=== PATIENT | female | born 1965 | race Caucasian/White ===

== ENCOUNTER 2022-03-22 09:08 | Emergency (ER) | payer OTHER, SELFPAY ==
--- NOTE | ~2022-03-22 | XR_ITS ---
EXAMINATION: XR chest 1V portable INDICATION: Left-sided chest pain TECHNIQUE: Portable AP chest at 0943 hours COMPARISON: 06/26/2019 FINDINGS: The lungs are hyperinflated but free of acute opacities. Calcified pulmonary nodules and ca lcified right hilar lymph nodes are consistent with old granulomatous disease. No pleural effusion or pneumothorax. The cardiomediastinal silhouette is normal. There are partially imaged surgical change s in the cervical and lumbar spine. IMPRESSION: 1. No acute cardiopulmonary abnormality. Reviewed, dictated and finalized at location A.
--- NOTE | ~2022-03-22 | CT_ITS ---
EXAMINATION: CTA chest PE protocol DATE: 03/22/2022 10:52 INDICATION: Shortness of breath and chest pain TECHNIQUE: Computed tomography angiography (CTA) of the chest was performed with 100 mL Omnipaque-350 intravenous contrast timed to evaluate the pulmonary arteries. Coronal maximum intensity projection 3D-reconstructions were created by the technologist. The dose-length product (DLP) was 156.49 mGy-cm. Automated exposure control and iterative reconstruction technique were employed. COMPARISON: None. FINDINGS: The pulmonary arteries are well-opacified. No pulmonary embolism is identified. There is sc arring of the lung apices. There are small group of nodules in the right middle lobe with an appearan ce consistent with infection/inflammation. There is also mild atelectasis/scarring of the left lower lobe. No pleural effusion or pneumothorax. No pathologically enlarged thoracic lymph nodes are identi fied. The heart size is normal. Punctate calcifications in an otherwise normal spleen likely represen t healed granulomatous disease. There are partially imaged changes of anterior fusion in the lower ce rvical spine. IMPRESSION: 1. No pulmonary embolus identified. 2. Small group of nodules in the right middle lobe, likely infectious or inflammatory. Reviewed, dictated and finalized at location A. IMPRESSION: 1. No pulmonary embolus identified. 2. Small group of nodules in the right middle lobe, likely infectious or inflam matory.
--- NOTE | 2022-03-22 09:20 | ECG_ITS ---
Measurements Intervals [place] Rate: 81 P: 83 [place]: 161 QRS: 72 QRSD: 74 T: 60 QT: 404 QTc: 470 Interpretive Statements SINUS RHYTHM RIGHT ATRIAL ENLARGEMENT LEFT ATRIAL ENLARGEMENT BORDERLINE ST-T WAVE ABNORMALITY- DIFFUSE LEADS BASELINE ARTIFACT- I, II, III, AVR AVL, AVF, V1-V2 BORDERLINE ECG COMPARED TO ECG 06/26/2019 14:29:44 NO SIGNIFICANT CHANGES Electronically Signed On 03-22-2022 11:08:39 CDT by Low Mcfarland D.O.
--- NOTE | 2022-03-22 09:20 | ED.GENADULT ---
HPI - General Adult General Chief complaint: Chest Pain Stated complaint: recent pna, SOB, CP Time Seen by Provider: 03/22/22 09:11 Source: RN notes reviewed History of Present Illness HPI narrative: Patient presents emergency room from home for chest pain. Patient states that symptoms began 2 days ago. The pain is located across bilateral anterior chest and is described as sharp and stabbing. Patient states the pain is worse with deep inspiration she states that she was recently admitted to the [facility] for pneumonia and was released approximately week ago states she is no longer antibiotics. She denies any fevers or chills shortness of breath abdominal pain nausea vomiting or any other symptoms. Related Data Home Medications Medication Instructions Recorded Confirmed alendronate 70 mg tablet mg PO 06/26/19 amlodipine 5 mg tablet 06/26/19 atorvastatin 20 mg tablet 06/26/19 cyclobenzaprine 10 mg tablet mg 06/26/19 famotidine 40 mg tablet 06/26/19 hydrocortisone 1 % topical cream 06/26/19 Allergies Allergy/AdvReac Type Severity Reaction Status Date / Time No Known Allergies Allergy Verified 03/22/22 09:28 Review of Systems Review of Systems: Gen.: Denies fevers or chills ENT: Denies congestion Respiratory: Denies shortness of breath or cough CV: See HPI GI: Denies abdominal pain nausea, emesis or diarrhea Musculoskeletal: Denies back pain or muscle pain Neuro: Denies numbness, tingling, weakness or focal weakness Skin: Denies rash Except as documented, all other systems reviewed and negative [facility] Past Medical History Medical History (Updated 03/22/22 @ 13:21 by Shady Mendoza DO) COPD (chronic obstructive pulmonary disease) Hepatitis C Liver failure Surgical History Surgical History History of hysterectomy History of orthopedic surgery removal of 3 lt ribs S/P insertion of iliac artery stent bilateral iliac stents placed Social History Social History Smoking packs per day: 1 Smoking cigarettes per day: 20.0 Smoking status: Current every day smoker Substance use type: marijuana Gender identity (if verbalized by the patient): Female Exam Narrative: APPEARANCE: No acute distress, nontoxic, resting in bed EYES: EOMI HEENT: Normocephalic, atraumatic, OMM RESPIRATORY: No respiratory distress Clear to auscultation bilaterally with no rhonchi wheezing or rales. CARDIOVASCULAR: Regular rate and rhythm without murmurs rubs or gallops. Chest: Tender bilateral anterior chest wall pain increased with deep inspiration ABDOMINAL: Soft, nontender, nondistended, no rebound or guarding MUSCULOSKELETAl: Moves all extremities. No clubbing, cyanosis or edema. NEURO: Awake and alert. Following commands, speech normal, no focal deficits SKIN:: Warm, dry. No rashes lesions or abrasions PSYCHIATRIC: Normal affect/mood, Course Course Emergency Course: Reviewed patient's CT of the chest the patient was recently diagnosed with pneumonia recently finished antibiotics and feel these nodules are likely postinfectious small patient follow-up with her PCP Patient states pain is improved with medication Discussed with patient results of workup and diagnosis. Discussed need for follow-up with primary care, proper use of medication, and reasons to return to the emergency department. Patient understands and agrees to current treatment plan Vital Signs Vital signs: Vital Signs Temperature 97.8 F 03/22/22 09:22 Pulse Rate 87 03/22/22 09:22 Respiratory Rate 19 03/22/22 09:22 Blood Pressure 156/102 H 03/22/22 09:22 Pulse Oximetry 100 03/22/22 09:22 Oxygen Delivery Room Air 03/22/22 09:22 Temperature 97.8 F 03/22/22 09:22 Pulse Rate 62 03/22/22 13:05 Respiratory Rate 12 03/22/22 13:05 Blood Pressure 147/81 H 03/22/22 13:05 Pulse Oximetry 98
[2022-03-22 09:22] VITALS: BP 156/102; PULSE 87; RESP 19; TEMP 36.6; O2SAT 100
[2022-03-22 09:27] VITALS: PULSE 73
[2022-03-22 09:40] LABS: Basophils Absolute Auto 0.1 K/mm3 (0.0-0.1); Basophils Percent Auto 1.2 % (0.2-1.2); Eosinophils Absolute Auto 0.3 K/mm3 (0-0.3); Eosinophils Percent Auto 2.7 % (0-4.4); Hematocrit 47.2 % (37.0-47.0); Hemoglobin 15.8 g/dL (12.0-15.0); Immature Granulocyte Absolute 0.04 K/mm3 (0.00-0.031); Immature Granulocyte Percent A 0.3 % (0-0.5); Lymphocytes Absolute Auto 2.24 K/mm3 (0.9-3.2); Lymphocytes Percent Auto 19.4 % (18.3-44.2); Mean Corpuscular HGB Conc 33.5 g/dl (32-36); Mean Corpuscular Volume 92.5 fl (80-100); Monocytes Absolute Auto 0.8 K/mm3 (0.1-0.6); Monocytes Percent Auto 6.9 % (2.6-8.5); Neutrophils Percent Auto 69.5 % (45.5-73.1); Platelet Count Result 342 k/mm3 (150-375); Red Cell Distribution Width 12.9 % (11.5-14.5); White Blood Count 11.5 K/mm3 (4.5-10.0)
[2022-03-22 10:00] LABS: Alanine Aminotransferase 23 U/L (6-35); Albumin Level 4.8 g/dL (3.5-5.1); Alkaline Phosphatase 100 U/L (38-126); Anion Gap 16 mmol/L (8-16); Aspartate Amino Transferase 33 U/L (14-36); Bilirubin,Total 0.7 mg/dL (0.2-1.3); Blood Urea Nitrogen 12 mg/dL (7-17); Calcium 9.5 mg/dL (8.4-10.2); Carbon Dioxide 23 mmol/L (22-30); Chloride 102 mmol/L (98-107); Estimated CRCL calculation 47 ml/min; Estimated Glomerular Filt Rate > 60; Glucose 93 mg/dL (65-110); Lipase 185 U/L (23-300); Potassium 3.7 mmol/L (3.4-5.0); Sodium 141 mmol/L (137-145)
[2022-03-22 10:10] LABS: Troponin I < 0.012 ng/mL (0.000-0.034)
[2022-03-22 10:20] VITALS: BP 161/101; PULSE 81; RESP 17; O2SAT 97
[2022-03-22 10:25] LABS: INR 1.1; Prothrombin Time 13.7 Seconds (11.1-14.7)
[2022-03-22 10:26] LABS: Partial Thromboplastin Time 23.9 SECONDS (22.3-36.8)
[2022-03-22 10:35] LABS: D Dimer 0.63 ug/mL (<0.48)
--- NOTE | 2022-03-22 10:48 | PC.NURSE ---
Pt to CT scan via stretcher at this time.
[2022-03-22 11:38] VITALS: BP 146/89; PULSE 73; RESP 19; O2SAT 98
[2022-03-22 12:32] LABS: Troponin I < 0.012 ng/mL (0.000-0.034)
[2022-03-22] MEDS: KETOROLAC 30 MG/ML VIAL (*BKC) IV PUSH (13:04)
[2022-03-22 13:05] VITALS: BP 147/81; PULSE 62; RESP 12; O2SAT 98
[2022-03-22 13:37] VITALS: BP 124/78; PULSE 92; RESP 16
== END 2022-03-22 13:38 | disposition home or self-care (01) ==
PROVIDERS: Emergency Provider Emergency Medicine
DX: R07.89 Other chest pain (principal); J44.9 Chronic obstructive pulmonary disease, unspecified; F17.210 Nicotine dependence, cigarettes, uncomplicated; F12.90 Cannabis use, unspecified, uncomplicated; Z86.19 Personal history of other infectious and parasitic diseases; Z95.820 Peripheral vascular angioplasty status with implants and grafts
CPT/HCPCS: 36415; 71045; 71275; 80053; 83690; 84484; 85025; 85380; 85610; 85730; 93005; 96374; 99284; J1885; Q9967

== ENCOUNTER 2025-04-08 16:15 | Inpatient (IN) | payer MEDICARE, SELFPAY ==
[2025-04-08] VITALS (9 sets, daily range): BP systolic 113–166; BP diastolic 80–94; PULSE 66–109; RESP 12–22; TEMP 36.4–37.1; O2SAT 97–100; BMI 16.9
--- NOTE | ~2025-04-08 | CT_ITS ---
EXAMINATION: CTA chest PE abdomen pel, 04/08/2025 17:25 CDT HISTORY: SOB, active cancer, tachy COMPARISON: No comparisons available. TECHNIQUE: CTA scan with 3D Reconstructions of the chest, CT of the abdomen and pelvis was performed with contrast Isovue 300, 92cc injected IV. One or more of the following dose reduction techniques were used: automated exposure control, adjustment of the mA and/or kV according to patient size, use of iterative reconstruction technique. Unless otherwise stated, incidental findings do not require dedicated follow up imaging FINDINGS: CT chest: No significant coronary calcification is present ([id number]) LUNGS: The contrast bolus is adequate, there is no pulmonary embolism identified. Moderate to severe emphysematous changes. No areas of bullous formation. No tracheomalacia. No bronchiectasis. Bilateral bronchial wall thickening. There are no areas of mucous plugging. Scattered bilateral calcified granulomas. Left lower lobe there is a lung nodule measuring 6 x 6 mm. Apical scarring is noted bilaterally. There are scattered micronodules in a tree-in-bud distribution most marked involving the lingula and the right middle lobe with associated bronchial wall thickening and minimal scattered foci of groundglass attenuation. Scattered calcified granulomas. Punctate calcified splenic granulomas. HEART AND PERICARDIUM: Within normal limits. AORTA: Moderate atherosclerotic changes aorta without aneurysm. MEDIASTINUM: Unremarkable. THYROID: The thyroid is unremarkable. CT abdomen: LIVER: Portal vein patent. No intrahepatic biliary duct dilatation. SPLEEN: Unremarkable, no splenomegaly. KIDNEYS: Right Kidney: The right kidney is enlarged. Left Kidney: The left kidney is atrophic. ADRENAL GLANDS: Unremarkable. PANCREAS: Mild pancreatic atrophy. GALLBLADDER/BILIARY: Unremarkable. No biliary dilatation. STOMACH AND ESOPHAGUS: Nonspecific thickening of the esophagus may represent esophagitis. The stomach appears decompressed. BOWEL/MESENTERY: Moderate fecal content, no colitis or diverticulitis. Appendix normal. Mesentery normal. No thickening or dilated loops of small bowel. RETROPERITONEUM: Unremarkable AORTA/VASCULATURE: Normal caliber aorta. FREE FLUID OR FREE AIR: No free fluid.. CT pelvis: SOLID ORGANS/REPRODUCTIVE: Post hysterectomy. No adnexal mass. BLADDER: Bladder distended. LYMPHADENOPATHY: No lymphadenopathy. OSSEOUS STRUCTURES: No sclerotic or lytic lesions. No acute rib fractures are identified. Postsurgical changes noted in the lumbar spine. OVERLYING SOFT TISSUES: Unremarkable. IMPRESSION: 1. Negative for pulmonary embolism. Probable bilateral bronchopneumonia superimposed on chronic lung disease. There are micronodules detailed above which are probably infectious, underlying neoplasm is not excluded and follow-up is warranted to ensure stability or resolution. 2. No acute intra-abdominal process. Incidental findings above Reviewed, dictated and finalized at location P. IMPRESSION: 1. Negative for pulmonary embolism. Probable bilateral bronchopneumonia superim posed on chronic lung disease. There are micronodules detailed above which are probably infectious, underlying neoplasm is not excluded and follow-up is warra nted to ensure stability or resolution. 2. No acute intra-abdominal process. Incidental findings above
--- NOTE | ~2025-04-08 | XR_ITS ---
XR chest 1V portable INDICATION:SOB NAUSEA DIARRHEA WEAKNESS RECENT RECENT CA . REFERENCE: None FINDINGS: A single AP of the chest demonstrates normal heart size. The lungs are clear. There is no evidence of pneumothorax or pleural effusion. IMPRESSION: No acute pulmonary findings. Reviewed, dictated and finalized at location S.
--- NOTE | 2025-04-08 16:16 | ECG_ITS ---
Test Date: 2025-04-08 16:22:48 Measurements Intervals [place] Rate: 111 P: 85 [place]: 154 QRS: 59 QRSD: 70 T: 76 QT: 347 QTc: 473 Interpretive Statements SINUS TACHYCARDIA WITH OCCASIONAL SUPRAVENTRICULAR PREMATURE COMPLEXES RIGHT ATRIAL ENLARGEMENT LEFT ATRIAL ENLARGEMENT CANNOT R/O SEPTAL INFARCT, AGE INDETERMINATE BORDERLINE ST ABNORMALITY- ANTEROLAT/INF LEADS PEAKED T WAVES- CONSIDER HYPERKALEMIA BASELINE ARTIFACT- I, II, AVR, AVL, AVF, V1-V2 ABNORMAL ECG No previous ECG available for comparison Electronically Signed On 04-08-2025 18:04:46 CDT by Low Mcfarland D.O.
--- NOTE | 2025-04-08 16:49 | ED.SOB ---
HPI - SOB/Dyspnea General Chief Complaint: Shortness of Breath/Dyspnea Stated Complaint: SOB, vomiting, black stool yesterday Time Seen by Provider: 04/08/25 16:27 History of Present Illness HPI Narrative: 59-year-old female with history of stage I lung cancer completed radiation therapy over a month ago. She also has a history of coronary disease with 2 stents in her heart placed 7 years ago. Presents to the emergency department today with nausea vomiting black tarry stools and shortness of breath for the last day and half to 2 days. No recent medication changes or healthcare changes. Had a colonoscopy previously that was unremarkable. No history of EGD or GI bleeding. She takes an 81 mg aspirin daily but no other anticoagulants or blood thinners. Denies any traumatic injuries. She states she feels very short of breath and vomited yesterday some clear phlegm. Today she had 1 large bowel movement that she describes as very dark and tarry with sticky appearance. [place] short of breath for last 2 days but denies any chest pain or chest pressure. No nausea, vomiting now. No headache or vision changes. No abdominal pain. Has only undergone radiation therapy and did not have any chemotherapy for her cancer. Has a follow-up appointment in 3 months to assess for remission status. Related Data Home Medications ?Medication ?Instructions ?Recorded ?Confirmed ?Last Taken ?Type atorvastatin 20 mg tablet 20 mg PO HS 06/26/19 04/08/25 04/07/25 History losartan 100 mg tablet 100 mg PO DAILY 04/08/25 04/08/25 04/08/25 History Allergies Allergy/AdvReac Type Severity Reaction Status Date / Time No Known Allergies Allergy Verified 04/08/25 22:21 Review of Systems Review of Systems: As reviewed above in HPI [facility] Past Medical History Medical History (Updated 04/08/25 @ 22:42 by Kirill Tan MD) Squamous cell carcinoma of lung, stage I /radiation completed Chronic GERD HTN (hypertension) with goal to be determined Hyperlipidemia Osteoporosis Liver failure Hepatitis C COPD (chronic obstructive pulmonary disease) Surgical History Surgical History (Updated 04/08/25 @ 20:04 by Lucila Dunbar APRN) H/O neck surgery History of back surgery History of orthopedic surgery removal of 3 lt ribs History of hysterectomy S/P insertion of iliac artery stent bilateral iliac stents placed Social History Social History (Updated 04/08/25 @ 20:50 by Lucila Dunbar APRN) Social History: She continues to work part work at a local [employer]. She has no children and lives with her mother. She stated she is down to half a pack a cigarettes a day. She does not have a power of associate attorney for healthcare. Code status: Full code Smoking packs per day: 0.5 Smoking cigarettes per day: 10.0 Years smoked: 45 Smoking pack-years: 22.50 Smoking status: Current every day smoker Tobacco type: cigarettes Substance use type: marijuana Gender identity (if verbalized by the patient): Female Exam Narrative: GENERAL: Thin and frail but not any acute distress. HEAD: [Normocephalic, atraumatic.] EYES: [PERRLA and EOMI.] ENT: Nares clear, no rhinorrhea or epistaxis. Mucous membranes very dry. NECK: Supple. CHEST: Mildly dyspneic but clear to auscultation without any wheezing. No retractions. HEART: [Regular rate and rhythm]. No murmur heard. [Normal peripheral pulses.] ABDOMEN: Soft and nondistended, minimally tender in the epigastrium., no rigidity or peritonitis EXTREMITIES: Normal range of motion. [No edema.] SKIN: Warm, dry, no rash. NEURO: [No focal deficits]. Alert and oriented [x3.] PSYCH: [Normal mood and affect.] Course Vital Signs Vital signs: Vital Signs Temperature 37.1 C 04/08/25 16:20 Pulse Rate 109 H 04/08/25 16:20 Respiratory Rate 20 04/08/25 16:20 Blood Pressure 113/82 04/08/25 16:20 Pulse Oximetry 99 04/08/25 16:20 Oxygen Delivery Room Air 04/08/25 16:20 Temperature 36.6 C 04/08/25 22:19 Pulse Rate 80 04/08/25 22:19 Respiratory Rate 22 H 04/08/25 22:19 Blood Pressure 163/80 H 04/08/25 22:19 Pulse Oximetry 100 04/08/25 22:19 Oxygen Delivery Room Air 04/08/25 21:40 Fraction of Inspired Oxygen 21 04/08/25 21:40 MDM - SOB/Dyspnea MDM Narrative Medical decision making narrative: 59-year-old female with history of stage I lung cancer completed radiation therapy over a month ago. She also has a history of coronary disease with 2 stents in her heart placed 7 years ago. Presents to the emergency department today with nausea vomiting black tarry stools and shortness of breath for the last day and half to 2 days. No recent medication changes or healthcare changes. Had a colonoscopy previously that was unremarkable. No history of EGD or GI bleeding. She takes an 81 mg aspirin daily but no other anticoagulants or blood thinners. Denies any traumatic injuries. She states she feels very short of breath and vomited yesterday some clear phlegm. Today she had 1 large bowel movement that she describes as very dark and tarry with sticky appearance. [place] short of breath for last 2 days but denies any chest pain or chest pressure. No nausea, vomiting now. No headache or vision changes. No abdominal pain. Has only undergone radiation therapy and did not have any chemotherapy for her cancer. Has a follow-up appointment in 3 months to assess for remission status. Patient has tachycardia and some tachypnea. No fever hypoxemia. Normal blood pressure. She is thin and frail and does have some mild tenderness on the epigastrium. Given her symptoms concern for potential GI bleeding with dark tarry stools epigastric discomfort with palpation and shortness of breath could be from GI bleeding or anemia. Other differential includes thromboembolic disease such as PE given her cancer history, recurrence for cancer worsening cancer burden. Pneumonia or infectious process also possible. Broad workup ordered this time including CT angiography of the chest with PE protocol with abdomen pelvis addition. Laboratory studies obtained as well as chest x-ray EKG. EKG obtained shows global ST segment depressions without any contiguous ST segment elevations likely strain pattern but ordering cardiac markers including troponin and BNP as well. Patient given a L of fluid given that she appears dehydrated. Repeat EKG obtained after fluid bolus and resuscitation showed resolution of the diffuse ST segment depressions likely demand ischemia type 2 LA although she does have an elevated troponin here. Repeat EKG and repeat troponin down trending and improved without any further ST segment changes. Likely combination of dehydration and intravascular volume depletion as she has hemoconcentration on her labs. Evidence of bronchopneumonia the CT angiography with no pulmonary embolism. Started on antibiotics including vancomycin and cefepime given that she has a prolonged QTC will avoid agents such as azithromycin for atypical coverage. Given a dose of magnesium for the prolonged QTC interval as well. Patient did not have any further nausea vomiting or bowel movements here, concern presently for pneumonia with elevated troponin from dehydration and demand ischemia and some and has a history of coronary disease. Will admit to the hospital for further evaluation and treatment on inpatient basis. Will hold off on empiric anticoagulation at this time as do not suspect ACS and discussed this with the hospitalist regarding initiation or holding off on anticoagulation as well in the setting of potential historical features concerning for GI bleed. Will defer at this time and patient admitted to the hospital to an IMU bed. Medical Records Attestation: I reviewed the patient's medical records. Lab Data Attestation: I reviewed the patient's lab results. 04/08/25 16:41 04/08/25 16:41 Labs: Lab Results 04/08/25 04/08/25 04/08/25 Range/Units 16:41 16:41 16:41 WBC 11.1 H (4.5-10.0) K/mm3 RBC 5.62 H (4.2-5.4) M/mm3 Hgb 17.3 H (12.0-15.0) g/dL Hct 50.7 H (37.0-47.0) % MCV 90.2 (80-100) fl MCH 30.8 (26-34) pg MCHC 34.1 (32-36) g/dl RDW 13.0 (11.5-14.5) % Plt Count 264 (150-375) k/mm3 MPV 10.3 (7.4-10.4) fl Immature Gran % (Auto) 0.4 (0-0.5) % Neut % (Auto) 68.8 (45.5-73.1) % Lymph % (Auto) 21.2 (18.3-44.2) % [place] % (Auto) 8.7 H (2.6-8.5) % Eos % (Auto) 0.4 (0-4.4) % Baso % (Auto) 0.5 (0.2-1.2) % Lymph # (Auto) 2.35 (0.9-3.2) K/mm3 [place] # (Auto) 1.0 H (0.1-0.6) K/mm3 Eos # (Auto) 0.0 (0-0.3) K/mm3 Baso # (Auto) 0.1 (0.0-0.1) K/mm3 Abs Immat Gran (auto) 0.04 H (0.00-0.031) K/mm3 Absolute Neuts (auto) 7.6 H (1.3-6.7) K/mm3 Absolute Nucleated RBC 0.000 (0.0-0.012) K/mm3 Nucleated RBC % 0.0 (0.0-0.2) % PT 14.2 (11.1-14.7) Seconds INR 1.1 APTT 22.7 (22.3-36.8) Seconds Sodium 136 L (137-145) mmol/L Potassium 4.2 (3.4-5.0) mmol/L Chloride 100 (98-107) mmol/L Carbon Dioxide 21 L (22-30) mmol/L Anion Gap 15 H (4-12) mmol/L BUN 17 (7-17) mg/dL Creatinine 1.35 H (0.7-1.0) mg/dL Estim Creat Clear Calc Not Reportable Estimated GFR 40 L (59 - ) Glucose 102 (65-110) mg/dL Lactic Acid 1.7 (0.7-2.0) mmol/L Uric Acid Cancelled 4.4 Calcium 10.4 H (8.4-10.2) mg/dL Total Bilirubin 1.0 (0.2-1.3) mg/dL AST 32 (14-36) U/L ALT 20 (6-35) U/L Alkaline Phosphatase 126 (38-126) U/L Lactate Dehydrogenase Cancelled 218 Troponin I 0.753 H* (0.000-0.034) ng/mL NT-Pro-B Natriuret Pep 4910 H (19.9-100) pg/mL Total Protein (6.3-8.2) g/dL Albumin (3.5-5.1) g/dL Lipase (23-300) U/L 04/08/ Range/Units 16:41 WBC (4.5-10.0) K/mm3 RBC (4.2-5.4) M/mm3 Hgb (12.0-15.0) g/dL Hct (37.0-47.0) % MCV (80-100) fl MCH (26-34) pg MCHC (32-36) g/dl RDW (11.5-14.5) % Plt Count (150-375) k/mm3 MPV (7.4-10.4) fl Immature Gran % (Auto) (0-0.5) % Neut % (Auto) (45.5-73.1) % Lymph % (Auto) (18.3-44.2) % [place] % (Auto) (2.6-8.5) % Eos % (Auto) (0-4.4) % Baso % (Auto) (0.2-1.2) % Lymph # (Auto) (0.9-3.2) K/mm3 [place] # (Auto) (0.1-0.6) K/mm3 Eos # (Auto) (0-0.3) K/mm3 Baso # (Auto) (0.0-0.1) K/mm3 Abs Immat Gran (auto) (0.00-0.031) K/mm3 Absolute Neuts (auto) (1.3-6.7) K/mm3 Absolute Nucleated RBC (0.0-0.012) K/mm3 Nucleated RBC % (0.0-0.2) % PT (11.1-14.7) Seconds INR APTT (22.3-36.8) Seconds Sodium (137-145) mmol/L Potassium (3.4-5.0) mmol/L Chloride (98-107) mmol/L Carbon Dioxide (22-30) mmol/L Anion Gap (4-12) mmol/L BUN (7-17) mg/dL Creatinine (0.7-1.0) mg/dL Estim Creat Clear Calc Estimated GFR (59 - ) Glucose (65-110) mg/dL Lactic Acid (0.7-2.0) mmol/L Uric Acid Calcium (8.4-10.2) mg/dL Total Bilirubin (0.2-1.3) mg/dL AST (14-36) U/L ALT (6-35) U/L Alkaline Phosphatase (38-126) U/L Lactate Dehydrogenase Troponin I (0.000-0.034) ng/mL NT-Pro-B Natriuret Pep Cancelled (19.9-100) pg/mL Total Protein 8.7 H (6.3-8.2) g/dL Albumin 5.0 (3.5-5.1) g/dL Lipase 115 (23-300) U/L Imaging Data Attestation: I personally reviewed and interpreted this imaging study as follows: My impression: Impressions Chest X-Ray 04/08/25 16:55 IMPRESSION: No acute pulmonary findings. Chest/Abdomen/Pelvis CTA 04/08/25 17:48 IMPRESSION: 1. Negative for pulmonary embolism. Probable bilateral bronchopneumonia superimposed on chronic lung disease. There are micronodules detailed above which are probably infectious, underlying neoplasm is not excluded and follow-up is warranted to ensure stability or resolution. 2. No acute intra-abdominal process. Incidental findings above Critical Care Time Critical Care Time Critical Care Time: Yes Total Critical Care Time: 75 Discharge Plan Discharge Clinical Impression: Bilateral bronchopneumonia, Type 2 myocardial infarction, Cardiac enzymes elevated, Acute kidney injury, Acute dehydration Patient Disposition: Still a Patient Condition: Stable
[2025-04-08 16:58] LABS: Hematocrit 50.7 % (37.0-47.0); Hemoglobin 17.3 g/dL (12.0-15.0); Immature Granulocyte Percent A 0.4 % (0-0.5); Lymphocytes Absolute Auto 2.35 K/mm3 (0.9-3.2); Mean Corpuscular HGB Conc 34.1 g/dl (32-36); Mean Corpuscular Hemoglobin 30.8 pg (26-34); Mean Corpuscular Volume 90.2 fl (80-100); Nucleated Red Blood Cells Absolute Auto 0.000 K/mm3 (0.0-0.012); Nucleated Red Blood Cells Perc 0.0 % (0.0-0.2); Platelet Count Result 264 k/mm3 (150-375); Red Blood Count 5.62 M/mm3 (4.2-5.4); White Blood Count 11.1 K/mm3 (4.5-10.0)
[2025-04-08 17:11] LABS: Alanine Aminotransferase 20 U/L (6-35); Albumin Level 5.0 g/dL (3.5-5.1); Alkaline Phosphatase 126 U/L (38-126); Anion Gap 15 mmol/L (4-12); Aspartate Amino Transferase 32 U/L (14-36); Bilirubin,Total 1.0 mg/dL (0.2-1.3); Blood Urea Nitrogen 17 mg/dL (7-17); Calcium 10.4 mg/dL (8.4-10.2); Carbon Dioxide 21 mmol/L (22-30); Chloride 100 mmol/L (98-107); Estimated Glomerular Filt Rate 40; Glucose 102 mg/dL (65-110); Lipase 115 U/L (23-300); Potassium 4.2 mmol/L (3.4-5.0); Sodium 136 mmol/L (137-145); Total Protein 8.7 g/dL (6.3-8.2); Uric Acid 4.4 mg/dL (2.5-7.5)
[2025-04-08 17:19] LABS: INR 1.1; Partial Thromboplastin Time 22.7 Seconds (22.3-36.8); Prothrombin Time 14.2 Seconds (11.1-14.7)
[2025-04-08 17:24] LABS: NT Pro B Type Natriuretic Pept 4910 pg/mL (19.9-100); Troponin I 0.753 ng/mL (0.000-0.034)
--- NOTE | 2025-04-08 17:27 | ECG_ITS ---
Test Date: 2025-04-08 17:46:06 Measurements Intervals [place] Rate: 80 P: 81 [place]: 128 QRS: 57 QRSD: 80 T: 74 QT: 502 QTc: 580 Interpretive Statements SINUS RHYTHM POSSIBLE RIGHT ATRIAL ENLARGEMENT POSSIBLE LEFT ATRIAL ENLARGEMENT ANTEROSEPTAL INFARCT, AGE INDETERMINATE PEAKED T WAVES- CONSIDER HYPERKALEMIA PROLONGED QT INTERVAL ABNORMAL ECG Compared to ECG 04/08/2025 16:22:48 HEART RATE HAS DECREASED Electronically Signed On 04-08-2025 18:07:20 CDT by Low Mcfarland D.O.
[2025-04-08] MEDS: SODIUM CHLORIDE 0.9% IV 1,000 ML 999 ML IV CONT ×2 (17:39→20:19)
--- OUTSIDE RECORDS SUMMARY | 2025-04-08 17:44 | XMS_ITS | Encounter Summary ---
Author Organization [facility] Address [address] [place] [address] Care Team Providers Care Dynamite Packing Machine Feeder Name Role Phone Jessica Cruz MD Unavailable Lisa Bran DO Primary Care Provider Nolan Griffin MD Unavailable [phone] Jessica Cruz MD Unavailable [phone] Brandon Worrell MD Primary Care Provider Lisa Bran DO Unavailable [phone] Kathryn Alarcon MD Unavailable [phone] Noah Aleman MD Primary Care Provider [phone] Lisa Bran DO Unavailable Encounter Details Date Type Department Care Team (Late st Contact Info) Description 12/16/2021 Telephone [facility] [address] [place] [address] Lisa Bran DO [address] [place] [address] Social History Tobacco Use Types Packs/Day Years Used Date Smoking Tobacco: Every Day Cigarettes 1 40 Smokeless Tobacco: Never Comments:currently down to 1 0 cig/day Alcohol Use Standard Drinks/Week Comments No 0 (1 standard drink = 0.6 oz pur e alcohol) abstinent PHQ-2 Answer Date Recorded PHQ2 TOTAL SCORE 0 09/22/2021 Comments No Sex and Gender Information Value Date Recorded Sex Assigned at Not on file Legal Sex Female 5:24 AM 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 Confirmation received. * Telephone Encounter - Tayler Man RN - 12/16/2021 1:42 PM CDT Incoming call successful Interoffice staff, pt called back asking for the Dermatopathy 3.11.20 noted under labs to be faxed to the new derm office. Please assist in the completion of this request. * Telephone Encounter - Niya Ashby RN - 12/16/2021 1:35 PM CDT Left VM for patient requesting call back to provide more information on the type of information sheneeds faxed. Office visit notes? Referral order? * Telephone Encounter - Sanjuanita Zhang - 12/16/2021 1:01 PM CDT Current Provider name:Dr. Bran Reason for call: Pt is requesting for the information about the slow growing skin cancer on her leg to be faxed over to her [employer]. They are requesting this information before they can treat her. [facility] Fax #: [phone] Dr. Maricruz Fishman documented in this encounter Plan of Treatment Upcoming Encounters Date Type Department Care Team (Late st Contact Info) Description 04/14/2025 10:00 AM CDT Appointment [facility] [address] [place] [phone] Rhonda Brown MD [address] [place] [address] [address] [place] [address] 04/14/2025 11:00 AM CDT Appointment [facility] [address] [place] [phone] Rhonda Brown MD [address] [place] [address] [address] [place] [phone] 04/30/2025 11:15 AM PHARMACOVIGILANCE SCIENTIST [facility] [address] [facility] [place] [phone] Rhonda Brown MD [address] [place] [address] [address] [place] [address] Nolan Griffin MD [address] [address] 06/11/2025 10:00 AM PHARMACOVIGILANCE SCIENTIST Appointment [facility] [address] [place] [phone] Sol Kendrick MD [address] [place] [id number] 06/16/2025 10:00 AM PHARMACOVIGILANCE SCIENTIST Appointment [facility] [place] [address] Westley Duran MD [address] [place], [place] [phone] documented as of this encounter Visit Diagnoses Not on filedocumented in this encounter Care Teams Dynamite Packing Machine Feeder Relationship Specialty Start Date End Date Lisa Bran DO [address] DIV [place] [phone] PCP - General 09/12/21 04/08/23 Brandon Worrell MD [address] [facility] [place] [phone] PCP - General Internal Medicine 04/09/23 10/16/23 Noah Aleman MD [address] [facility] [place] [phone] PCP - General Internal Medicine 10/17/23 Lisa Bran DO [address] DIV OF [facility] [place] [phone] PCP - [facility] DREW BINGHAMUC[facility]AL P4P 11/24/23 Jessica Cruz MD [address] DIV OF [facility] INTERNAL MEDICINE [place], [place] Resident Internal Medicine 09/06/21 04/08/23 Nolan Griffin MD [address] [place] [phone] Surgeon Vascular Surgery 07/26/22 Jessica Cruz MD [address] DIV OF [facility] INTERNAL MEDICINE [place], [place] Resident - PCP Internal Medicine 07/27/22 04/08/23 Lisa Bran DO [address] DIV OF [facility] [place] [phone] Physician Internal Medicine 04/09/23 Kathryn Alarcon MD [address] [facility] [address]L [place] [phone] Surgeon Dermatology 04/09/23 documented as of this encounter
--- OUTSIDE RECORDS SUMMARY | 2025-04-08 17:44 | XMS_ITS | Data Portability ---
Author Organization [facility] Address [address] [place] [address] Assessment No assessment recorded. Plan of Treatment Reminders Order Date Submit Date Provider Last Modified By Organization Details Last Modified Time Details Appointments None recorded. Lab lipid panel, serum 2021 [facility], [address] [place] [address], [address], [place], [address], 2 11:16:51 Referral gastroente rologist referral - Please call patient for appointmen t thanks! 2021 022 [email or web address] [facility] , [address] [facility], [place], [address], 3 12:25:20 plastic surgeon referral - At [facility].Plea se call patient for appointmen t, thanks! 2021 022 alo Acosta MD, 2 [facility] , [address] [address], [place], [address], 3 09:52:10 dermatolog ist referral - Please call patient to schedule appt. Thank you 2017 018 alo Brown MD, [address] [facility] , [place], [address], 8 11:53:10 Procedures None recorded. Surgeries None recorded. Imaging XR, chest, 2 view 2021 022 [facility] ([facility]), [address] [place], [address], 15:59:45 MAMMO, screening, digital, bilateral 2017 018 [email or web address] [facility] ([facility]), [address] [place], [address], 8 16:30:20 Medication Orders atorvastat in 20 mg tablet [address] [facility] #[id number], [address], [place], [place], [id number], 17:59:26 amlodipine 10 mg tablet 2021 [facility], [address], [place], [place], [id number], 17:59:28 albuterol sulfate HFA 90 mcg/actuat ion aerosol inhaler 2021 [facility], [address], [place], [place], [id number], 17:59:26 atorvastat in 20 mg tablet [address] [facility] #[id number], [address], [place], [place], [id number], 17:47:35 triamcinol one acetonide 0.1 % topical cream 2021 [facility], [address], [place], [place], [id number], 17:47:36 amlodipine 10 mg tablet 2021 [facility], [address] , [place], [place], [id number], 17:47:36 Patient TargetsNo targets recorded. Patient Instructions Encounter Date Encounter Id Patient Instructions Last Modified By Organization Details Last Modified Time 01/10/2018 [id number] Quitting Tobacco : Care Instructions sieh Not available 01/10/2018 16:26:11 mammogram: about this test jhsieh Not available 01/10/2018 16:26:11 hepatitis C: car e instructions sieh Not available 01/10/2018 16:26:11 chronic obstructive pulmonary disease (COPD): care instructions sieh Not available 01/10/2018 16:26:11 learning about copd and how to prevent lung infections jhsieh Not available 01/10/2018 16:26:11 skin lesions: care instructions sieh Not available 01/10/2018 16:26:11 Medical Marijuan a Evaluation* [facility] Not available 01/10/2018 16:26:11 02/13/2022 [id number] Quitting Tobacco : Care Instructions sieh Not available 02/13/2022 17:47:28 tetanus and diphtheria booster: care instructions si Not available 03/30/2022 19:39:54 hepatitis C: car e instructions [facility] Not available 02/15/2022 17:37:09 learning about hepatitis C sieh Not available 02/15/2022 17:37:09 learning about basal cell skin cancer si Not available 02/13/2022 17:47:28 learning about high blood pressure si Not available 02/13/2022 17:47:28 03/13/2022 [id number] chronic obstructive pulmonary disease (COPD): care instructions sieh Not available 03/13/2022 15:59:34 learning about copd and how to prevent lung infections sieh Not available 03/13/2022 15:59:34 pneumonia: care instructions sieh Not available 03/13/2022 15:59:34 03/21/2022 [id number] learning about high blood pressure sieh Not available 03/23/2022 17:59:17 chronic obstructive pulmonary disease (COPD): care instructions sieh Not available 03/23/2022 17:59:17 learning about copd and how to prevent lung infections [facility] Not available 03/23/2022 17:59:17 03/30/2022 [id number] chronic obstructive pulmonary disease (COPD): care instructions [facility] Not available 03/30/2022 17:23:28 learning about copd and how to prevent lung infections sieh Not available 03/30/2022 17:23:28 pleurisy: care instructions [facility] Not available 03/30/2022 17:23:28 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 Thank you Referring Physician: Indu Dawson, Internal Medicine, Encounter Date: 01/10/2018 Plastic Surgeon Referral for Basal cell carcinoma of skin At [facility].Please call patient for appointment, thanks! 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 Referring Physician: Indu Dawson Internal Medicine, Encounter Date: 03/13/2022 Results Created Date Observation Date Name Description Value Unit Range Abnormal Flag Note LastModifiedBy Organization Detail LastModifiedTime 06/28/19 20 06/28/2019 XR, chest No observ ation record ed. [address] (Imaging) [address] [place], [address], 06/30/2019 11:58:54 06/28/19 20 06/28/2019 XR, chest No observ ation record ed. [address] (Imaging) [address] [place], [address], 06/30/2019 11:57:41 02/15/20 22 12/20/2021 john PATRICK No observ ation record ed. denny Branham () [address] [place], [address], 02/20/2022 11:48:18 02/15/20 22 bone densi ty No observ ation record ed. [facility] ([facility]) [address] [place], [address], 04/03/2022 13:23:25 02/15/20 LDCT, chest , for lung cance r scree yady No observ ation record ed. [facility] (Im) [address] [place], [address], 03/24/2022 09:38:40 03/06/20 22 03/06/2022 XR, chest No observ ation record ed. [email or web address] [facility] [address] [place], [address], 03/10/2022 09:42:39 03/06/20 22 03/06/2022 US, abdom en No observ ation record ed. [email or web address] [facility] [address] [place], [address], 03/10/2022 09:42:55 03/07/20 22 03/07/2022 CT, chest , w/ contr ast No observ ation record ed. [email or web address] [facility] [address] [place], [address], 03/10/2022 09:44:02 04/04/20 22 12/20/2021 DEXA, axial skele ton No observ ation record ed. [facility] [address] [facility], [place], [address], 04/04/2022 12:26:00 04/17/20 22 12/20/2021 LDCT, chest , for lung cance r scree yady No observ ation record ed. [facility] [address], [place], [address], 04/17/2022 16:56:06 Result Notes None recorded. Problems Name Problem SNOMED Code Status Onset Date Resolution Date Notes Provider Name and Address Organization Details Recorded Time Viral hepatitis C 11826406 Active 2017 Not Available [facility] 2 05:19:49 Chronic obstructive pulmonary disease 05344029 Active 2017 Not Available [facility] 2 05:19:49 Disease of liver 844784506 Active 2017 Not Available [facility] 2 05:19:49 Candidiasis of vagina 02298887 Active 2017 Not Available [facility] 2 05:19:49 Notes:Hepatitis C Problem Notes None recorded. Procedures Surgical History Date Name Laterality Status Provider Name and Address Organization Details Recorded Time 10/23/19 18 Date of Last Pap Smear completed Ebony White MA [facility] 11/01/2017 14:45:46 06/25/19 13 Most Recent Mammogram completed Ebony White MA [facility] 11/01/2017 14:46:10 06/25/19 08 Total hysterectomy completed Ebony White MA [facility] 11/01/2017 14:40:11 Imaging Results None recorded. Procedure Notes None recorded. Medical Equipment None Reported. Allergies No known drug allergies Medications Name Sig Start Date Stop Date Status Note LastModified by Organization Details LastModified Time losartan 50 mg tablet TAKE 1 TABLET BY MOUTH EVERY DAY active Not Available Not Available No t Available cyclobenzap rine 10 mg tablet Take 1 tablet as needed by oral route at bedtime for 30 days. 02/13 completed Not Available Not Available Not Available amoxicillin 500 mg capsule 02/13 completed Not Available Not Available Not Available nystatin 100,000 unit/mL oral suspension 02/13 completed Not Available Not Available Not Available atorvastati n 20 mg tablet TAKE 1 TABLET BY MOUTH AT BEDTIME active Not Available Not Available No t Available ipratropium 0.5 mg-albutero l 3 mg (2.5 mg base)/3 mL nebulizatio n soln NEBULIZE 1 AMPULE FOUR TIMES DAILY active Not Available Not Available No t Available azithromyci n 250 mg tablet TAKE 1 TABLET BY MOUTH ONCE A DAY FOR 5 DAYS 06/29 completed Not Available Not Available Not Available ibuprofen 800 mg tablet TAKE 1 TABLET BY MOUTH THREE TIMES DAILY active Not Available Not Available No t Available Lidocaine Viscous 2 % mucosal solution SWISH AND SPIT 5 ML BY MOUTH EVERY 6 HOURS NEEDED active Not Available Not Available No t Available hydrocodone 5 mg-acetamin ophen 325 mg tablet TAKE 1 TABLET BY MOUTH FOUR TIMES DAILY NEEDED FOR PAIN active Not Available Not Available No t Available famotidine 40 mg tablet 02/13 completed Not Available Not Available Not Available prednisone 20 mg tablet TAKE 1 TABLET BY MOUTH EVERY DAY FOR 5 DAYS 02/13 completed Not Available Not Available Not Available terconazole 0.8 % vaginal cream Insert 1 applicato rful every day by vaginal route for 7 days. 01/10 completed Not Available Not Available Not Available metronidazo le 500 mg tablet Take 1 tablet every 8 hours by oral route after meals for 5 days. 02/13 completed Not Available Not Available Not Available amlodipine 5 mg tablet TAKE 1 TABLET BY MOUTH EVERY DAY 02/13 completed Not Available Not Available Not Available ciprofloxac in 500 mg tablet Take 1 tablet every 12 hours by oral route after meals for 5 days. 02/13 completed Not Available Not Available Not Available triamcinolo ne acetonide 0.1 % topical cream APPLY THIN LAYER TOPICALLY TO THE AFFECTED AREA TWICE DAILY active Not Available Not Available No t Available acyclovir 800 mg tablet Take 1 tablet every day by oral route as directed for 32 days. 02/13 completed Not Available Not Available Not Available methocarbam ol 750 mg tablet TAKE 1 TABLET BY MOUTH EVERY 8 HOURS NEEDED 02/13 completed Not Available Not Available Not Available dicyclomine 20 mg tablet 02/13 completed Not Available Not Available Not Available amlodipine 10 mg tablet TAKE 1 TABLET BY MOUTH EVERY DAY active Not Available Not Available No t Available hydrocortis one 1 % topical cream 03/21 completed Not Available Not Available Not Available cephalexin 500 mg capsule TAKE 1 CAPSULE BY MOUTH 4 TIMES DAILY FOR 10 DAYS active Not Available Not Available No t Available pantoprazol e 40 mg tablet,sasha yed release 02/13 completed Not Available Not Available Not Available prednisone 50 mg tablet 02/13 completed Not Available Not Available Not Available nicotine 21 mg/24 hr daily transdermal patch APPLY 1 PATCH TRANSDERM ALLY ONCE DAILY active Not Available Not Available No t Available oxybutynin chloride ER 5 mg tablet,exte nded release 24 hr Take 1 tablet every day by oral route. 02/13 completed Not Available Not Available Not Available gabapentin 300 mg capsule Take 1 capsule 3 times a day by oral route as directed for 30 days. 02/13 completed Not Available Not Available Not Available budesonide 0.5 mg/2 mL suspension for nebulizatio n NEBULIZE 1 AMPULE TWICE DAILY active Not Available Not Available No t Available ibuprofen 600 mg tablet TAKE 1 TABLET BY MOUTH THREE TIMES DAILY NEEDED FOR PAIN active Not Available Not Available No t Available albuterol sulfate HFA 90 mcg/actuati on aerosol inhaler active Not Available Not Available Not Available ondansetron 4 mg disintegrat ing tablet 02/13 completed Not Available Not Available Not Available cefdinir 300 mg capsule 02/13 completed Not Available Not Available Not Available naproxen 500 mg tablet TAKE 1 TABLET BY MOUTH EVERY 12 HOURS NEEDED active Not Available Not Available No t Available amoxicillin 875 mg-potassiu m clavulanate 125 mg tablet TAKE 1 TABLET BY MOUTH TWICE DAILY active Not Available Not Available No t Available Spiriva with HandiHaler 18 mcg and inhalation capsules 02/13 completed Not Available Not Available Not Available Symbicort 160 mcg-4.5 mcg/actuati on HFA aerosol inhaler 02/13 completed Not Available Not Available Not Available Chantix Starting Month Box 0.5 mg (11)-1 mg (42) tablets in dose pack 02/13 completed Not Available Not Available Not Available Vitals Date Recorded Body height Body mass index (BMI) Body weight Body temperature Oxygen saturation Oxygen saturation in Arterial blood by Pulse oximetry Heart rate Systolic And Diastolic Provider Name and Address Organization Details Last Updated DateTime 8 172.72 cm 16.1 kg/m2 94492.0 7 g 98.1 [degF] 99 % 99 % 95 /min 160/90 mm[Hg] John Kirby MA [place] [facility] 8 16:12:25 Date Recorded Body height Body mass index (BMI) Body weight Body temperature Oxygen saturation Oxygen saturation in Arterial blood by Pulse oximetry Heart rate Systolic And Diastolic Provider Name and Address Organization Details Last Updated DateTime 2 173.36 cm 16.1 kg/m2 34642.6 7 g 97.8 [degF] 97 % 97 % 62 /min 150/96 mm[Hg] John Kirby MA [facility] 2 16:55:24 Date Recorded Body height Body mass index (BMI) Body weight Body temperature Oxygen saturation Oxygen saturation in Arterial blood by Pulse oximetry Heart rate Systolic And Diastolic Provider Name and Address Organization Details Last Updated DateTime 2 173.36 cm 15.3 kg/m2 33521.2 7 g 98.2 [degF] 96 % 96 % 77 /min 146/80 mm[Hg] John Kirby MA [facility] 2 15:02:53 Date Recorded Body height Body mass index (BMI) Body weight Heart rate Oxygen saturation Oxygen saturation in Arterial blood by Pulse oximetry Systolic And Diastolic Provider Name and Address Organization Details Last Updated DateTime 2 173.36 cm 14.9 kg/m2 93611.6 4 g 88 /min 96 % 96 % 140/80 mm[Hg] Nicol Zaragoza MA [facility] 2 14:43:02 Date Recorded Body height Body mass index (BMI) Body weight Body temperature Oxygen saturation Oxygen saturation in Arterial blood by Pulse oximetry Heart rate Systolic And Diastolic Provider Name and Address Organization Details Last Updated DateTime 2 173.36 cm 15.8 kg/m2 90620.4 8 g 98.3 [degF] 97 % 97 % 80 /min 130/76 mm[Hg] John Kirby MA [facility] 2 16:59:12 Social History Question Answer Notes LastModified by Organizat ion Details LastModified Time Tobacco Smoking Status Former Smoker cigarettes Nicol Zaragoza MA null, [facility] 03/21/2022 14:41:07 Do You Have An Advance Directive? No [email or web address] Information not available 10/22/2017 Is Blood Transfusion Acceptable In An Emergency? No [email or web address] Information not available 10/22/2017 What Is Your Level Of Caffeine Consumption? Heavy [email or web address] Information not available 10/22/2017 How Much Tobacco Do You Chew? None [email or web address] Information not available 10/22/2017 What Type Of Diet Are You Following? REGULAR [email or web address] Information not available 10/22/2017 Which Illicit Or Recreational Drugs Have You Used? Marijuana [email or web address] Information not available 10/22/2017 Education 12 [email or web address] Information n ot available 10/22/2017 Live Alone Or With Others? With Others Mother [email or web address] Information not available 10/22/2017 What Was The Date Of Your Most Recent Tobacco Screening? 03/21/2022 [email or web address] Information not available 03/21/2022 How Many Children Do You Have? 0 [email or web address] Information not available 10/22/2017 Performs Monthly Self-breast Exam? Yes [email or web address] Information not available 10/22/2017 Do You Use Protection During Sex? Always [email or web address] Information not available 10/22/2017 What Is Your Relationship Status? Single [email or web address] Information not available 10/22/2017 Seat Belts Used Routinely Yes [email or web address] Information not available 10/22/2017 Are You Sexually Active? No [email or web address] Information not available 10/22/2017 At What Age Did You Start Smoking Tobacco? 13 [email or web address] Information not available 10/22/2017 How Much Tobacco Do You Smoke? 1 PPD [email or web address] Information not available 10/22/2017 General Stress Level Low [email or web address] Information not available 10/22/2017 Do You Use Sunscreen Routinely? Yes [email or web address] Information not available 10/22/2017 How Many Years Have You Smoked Tobacco? 40 [email or web address] Information not available 11/01/2017 Sex: Unknown Functional Status Question Answer Note LastModified by Organizat ion Details LastModified Time What is your level of alcohol consumption? None [email or web address] Information not available 10/22/2017 Are you currently employed? No [email or web address] Information not available 10/22/2017 What is your occupation? Disabled [email or web address] Information not available 10/22/2017 What is your exercise level? Occasional [email or web address] Information not available 10/22/2017 Mental Status None recorded. Family History Relationship Description Onset Age of this Age Resolved Age Notes LastModified by Organization Details LastModified Time Unspecified Relation Diabetes mellitus Mother s side [email or web address] Not available 10/22/2017 16:12:44 Mother Hypertensive disorder [email or web address] Not available 09/25 16:13:14 Mother Heart disease [email or web address] Not available 2017 14:41:10 Father Hypertensive disorder [email or web address] Not available 09/25 16:13:23 Father Kidney disease Not available 09/25 16:13:40 Father Family history of malignant neoplasm [email or web address] Not available 09/25 16:14:17 Father Harmful pattern of use of alcohol [email or web address] Not available 2017 14:40:45 Father Heart disease [email or web address] Not available 2017 14:41:10 Brother Harmful pattern of use of alcohol [email or web address] Not available 2017 14:40:45 Brother Hypertensive disorder [email or web address] Not available 2017 14:41:20 Medical History Condition Response Other N High Blood Pressure N Breast Cancer N Thyroid Problems N Kidney or Bladder Problems N GI Problems N Depression N Blood Clots N Lung Disease Y Acne N Breast Problem N Eating Disorder N Anemia N Anesthesia Complications N Headaches/Migraines N Anxiety Disorder N Diabetes N Ovarian Cancer N Muscle, Joint, or Bone Problems Y Blood Transfusions N Seizures/Epilepsy N Polyps N Infertility N Acid Reflux (GERD) N Cancer N Abuse/Domestic Violence N Asthma N Endometriosis N High Cholesterol N Hepatitis Y Liver Disease Y Heart Disease N Pre-Eclampsia N Osteoporosis Y Gynecological History Statement/Question Response Abnormal Pap N Sexually Active? N Menses Monthly N STIs/STDs N HPV Vaccine N Date of Last Pap Smear 10/22/2017 Sexual Problems? N Most Recent Mammogram 06/25/2012 Current Control Method Age at Menarche 13 LMP Unknown Obstetrics History GPAL:G 0 P 0 0 0 0 Type Value Living 0 Total 0 Immunizations Vaccine Type Date Status Note Provider Nam e and Address Organization Details Recorded Time COVID-19 vaccine, vector-nr, rS-Ad26, PF, 0.5 mL 1 completed Not Available [facility] 03/20/2023 00:30:47 Tdap 2 completed John Kirby MA null, [place] [facility] 03/30/2022 17:15:41 pneumococcal, unspecified formulation 7 completed Not Available [facility] 03/20/2023 00:30:47 Past Encounters Encounter ID Performer Location Encounter Start Date Encounter Closed Date Diagnosis/Indication Diagnosis SNOMED-CT Code Diagnosis ICD10 Code Diagnosis IMO Codes Diagnosis Note [id number] MD 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 Venereal d isease screening 789489388 Z11.3 Z20.2 Blood pres sure above reference range 81697429 R03.0 Advised to f/u with PCP. 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 She say she was told that she need to do breast ultrasound . 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 [id number] MD Carrol Blanco (Adult Med) [address] [place] [id number] 11/01/2017 14:28:46 11/01/2017 16:07:19 Herpes simplex type 2 infection 964265736 B00.9 partner shall be checked out and practice safe sex,. She said she has this sice 2009 in [facility]. Chronic ob structive pulmonary disease 99002625 J44.9 Nicotine dependence 5629 4008 F17.200 Chronic neck pain 480039 4659 107 M54.2 Chronic low back pain 27 1366848 M54.5 Will be on gabapentin . Cervical radiculopathy 41164536 M54.12 Will be on gabapentin Lumbar radiculopathy 128 264358 M54.16 will be on gabapentin Screening for osteoporosis 364429111 Z13.820 Insomnia 251885498 G47.0 0 Due to constant neck and back pain. Screening for malignant neoplasm of colon 718165010 Z12.11 Body weight problem 3013 60533 R68.89 BMI 15.6 [id number] MD Carrol Blanco (Adult Med) [address] [place] [id number] 01/10/2018 15:56:17 01/10/2018 16:30:20 Skin lesion 38923575 L98.9 Chronic ob structive pulmonary disease 95628985 J44.9 Chronic hepatitis C 1283 58922 B18.2 She has been treated, for medical marijuana, she is refered to johny gillette, for further evaluation . Nicotine dependence 5629 4008 F17.200 Screening mammography 24 263490 Z12.31 [id number] MD Carrol Blanco (Adult Med) [address] [place] [phone] 02/13/2022 15:33:06 02/16/2022 10:51:21 Essential hypertension 14580584 I10 Low salt diet. Avoid NSAID, or OTC decongesta nt if possible Basal cell carcinoma of skin 838140492 C44.91 On the left thigh about 1 cm growth skin lesion. She agreed for the referral of plastic surgeon. Dyslipidemia 751458037 E 78.5 Low animal fat diet. . Want s to refill atorvastat in. Smoker 11473391 F17.200 Advised her to quit smoking. Allergic c ontact dermatitis 047931620 L23.9 Itching skin spots , she agreed to try topical cream as ordered. Viral hepatitis C 815529 07 B19.20 No symptoms, Remission been treated since at least 2018 Administra tion of diphtheria, pertussis, and tetanus vaccine 483083561 Z23 [id number] [facility] [address] [place] [id number] 0 03/13/2022 14:27:42 03/14/2022 08:13:20 Community acquired pneumonia 153468083 J18.9 Just been released from hospital last week, no difficulty of breathing today,. Will take x ray of chest next week. Chronic ob structive pulmonary disease 27076342 J44.9 Stable. Negative LDCT. 2021. Smoker 63771726 F17.200 Advised her to quit smoking. On nicotine patch trying to quitting . Screening for malignant neoplasm of colon 336092987 Z12.11 She agreed. [id number] MD Carrol Blanco (Adult Med) [address] [place] [phone] 03/21/2022 14:27:10 03/24/2022 10:40:39 Chronic obstructive pulmonary disease 74850583 J44.9 Stable. Negative LDCT. 2021. Dyslipidemia 820324182 E 78.5 Low animal fat diet. . Want s to refill atorvastat in. Essential hypertension 45605882 I10 Low salt diet. Avoid NSAID, or OTC decongesta nt if possible [id number] Indu Dawson MD [facility] (Adult Med) [address] [place] [phone] 03/30/2022 16:25:48 03/31/2022 09:35:26 Pleurisy 923079498 R09.1 Recovered, willing to go back to regular duty on 04-03-2022 .history of neck and lower back operation for which she is in disability . Chronic ob structive pulmonary disease 52258801 J44.9 Stable. Negative LDCT. 2021. Smoker 45345676 F17.200 Advised her to quit smoking. On nicotine patch trying to quitting . Health Concerns Section Related Observation LastModified by Organization Detai ls LastModified Time None Recorded Concern Status LastModified by Organization Details LastModified Time None Recorded Advance Directives Directive N: Payers Insurance Date Sequence Insurance Name Policy Number Policy Campos Covered Member ID Campos Member ID Guarantor Name 07/01/2022 [place] [facility] Moriah Torres Kevin [id number] Moriah Kevin 07/01/2022 2 [place] Moriah Torres Kevin [id number] Moriah Brown 07/01/2022 1 [employer]TER [employer] - PREMIER PLAN - DUAL (MEDICARE - MEDICAID REPLACEMENT HMO) Moriah Brown [id number] Moriah Brown 03/30/2022 2 [place] WHEN [place]IC[place] OR [place]ICARE REPLACEMENT PRIMARY) Moriah Brown [id number] Moriah Brown 03/30/2022 [place] [facility] Moriah Kevin [id number] Moriah Brown 03/30/2022 1 [facility] (MEDICARE REPLACEMENT/AD VANTAGE - HMO) [id number] Moriah Brown [id number] Moriah Brown 03/30/2022 1 [place] Moriah Brown [id number] Moriah Brown 03/30/2022 2 [place] [facility] [place] OF PUBLIC AID Moriah Charles [id number] Moriah Brown Notes Date Note Type Note Provider Name and Address Organization Details Recorded Time 01/10/2018 text/html ROS as noted in the HPI Recently had unremarkable colonoscopy ex, skin lesion won't heal well asking the referral of dermatology and medical marijuana clinic, NKDA. Indu Dawson MD Attn: [address] [facility], [place], [address], [facility] [place] 01/10/2018 16:27:01 02/13/2022 text/html ROS as noted in the HPI Office visit, NKDA, history of hypertension, COPD, smoker John Kirby MA null, [place] - [facility] 03/30/2022 17:15:44 03/13/2022 text/html ROS as noted in the HPI Office visit, NKDA, F/U from hospital, just been D/C from hospital last week , due to community- acquired pneumonia, on patches for quitting smoking. Wants to go back to work next 03-21-2022. Indu Dawson MD Attn: Accounting[address] [facility], [place], [address], [facility] 03/13/2022 16:29:12 03/21/2022 text/html ROS as noted in the HPI Office visit, NKDA. Hospital F/U. Indu Dawson MD Attn: Accounting[address] [facility], [place], [address], [facility] 03/23/2022 17:59:24 03/30/2022 text/html ROS as noted in the HPI Office visit, ER F/U , went to ER 03-22-2022 , was told to have pleurisy, was released with ibuprofen,but ER won't gave her the note for returning to work. Getting better, sometimes smokes,willing to go back to work on 07-04-2021 with no restriction.NKDA. Indu Dawson MD Attn: Accounting[address] [facility], [place], [address], [facility] 03/30/2022 17:23:31 OBGyn Episode No OBEpisode recorded.
--- OUTSIDE RECORDS SUMMARY | 2025-04-08 17:44 | XMS_ITS | Clinical Summary ---
Author Organization [facility] Address [address] [place] [address] Care Team Providers Care Continuous Improvement Engineer Name Role Phone Nolan Griffin MD Unavailable [phone] Lisa Bran DO Unavailable [phone] Kathryn Alarcon MD Unavailable [phone] Noah Aleman MD Primary Care Provider [phone] Lisa Bran DO Unavailable [phone] [facility],non-owned Affiliates and Associated Physician Practices is amultiple site organization consisting of ambulatory clinics and hospital sitesin [place], [place], [place] and [place]. This disclosure is being madepursuant to the Care Everywhere program and may not contain all information available regarding this patient. Last updated 18.[facility] Allergies No known active allergies Medications * Be aware that medications may not be up to date on this document. Alwaysverify current medications with the patient. aspirin (ASPIRIN) 81 MG chew tablet Take 1 tablet by mouth once daily 9 Active tiotropium (SPIRIVA) 18 MCG inhalation capsule Inhale 1 capsule by mouth once daily 90 capsule 4 0 Active hydrocortisone (HYTONE) 1 % cream Apply to affected area 2 times daily 45 g 2 Active carbamide peroxide (Debrox) 6.5 % otic solutionIndicatio ns:Bilateral impacted cerumen Instill 5 (five) drops to 10 (ten) drops into both ears 2 times daily 15 mL 3 Active vitamin D, ergocalciferol, (Drisdol) 1.25 MG (59438 UT) capsuleIndication s:Osteoporosis without current pathological fracture, unspecified osteoporosis type Take 1 (one) capsule by mouth every 7 days 12 capsule 1 4 Active atorvastatin (Lipitor) 20 MG tablet Take 1 (one) tablet by mouth at bedtime 90 tablet 3 4 Active losartan (Cozaar) 100 MG tabletIndications :Essential hypertension Take 1 (one) tablet by mouth once daily 100 tablet 4 4 Active nicotine (Nicoderm CQ) 21 MG/24HR patchIndications: Nicotine Dependence APPLY 1 PATCH TO SKIN ONCE DAILY. USE THIS FIRST. Reasons: Nicotine Addiction 42 patch 2 5 Active buPROPion SR 12hr (Wellbutrin-SR) 150 MG tablet Take 1 (one) tablet by mouth 2 times daily 180 tablet 4 5 Active nitrofurantoin monohyd macro crystals (Macrobid) 100 MG capsuleIndication s:Acute bacterial simple cystitis Take 1 (one) capsule by mouth 2 times daily with morning and evening meal 10 capsule 5 Active albuterol HFA (Proventil; Ventolin; Proair) 108 (90 Base) MCG/ACT inhalerIndication s:Chronic obstructive pulmonary disease, unspecified COPD type ([facility]) Inhale 2 (two) puffs by mouth every 4 hours as needed for Shortness of Breath, Wheezing or Cough 8 g 2 5 Active predniSONE (Deltasone) 50 MG tablet Take 1 (one) tablet by mouth once daily for 7 days 7 tablet 5 03/12/20 25 levoFLOXacin (Levaquin) 500 MG tablet Take 1 (one) tablet by mouth once daily for 7 days 7 tablet 5 03/12/20 25 Active Problems Problem Noted Date Diagnosed Date Otalgia of left ear 10/17/2023 Assessment & Plan (10/17/2023 6:37 PM CDT): - 1 year, intermittent, associated with water - External and internal ear pain, severe, not associated with drainage, fever, chills, or URI symptoms - not associated with tinnitus or hearing loss - exam not consistent with canal injury or impacted cerumen PLAN: - Refer to ENT for further evaluation - Instructed her on keeping her ear dry and putting a bag on it during showers as to not get it wet - avoid swimming and other water activities Essential hypertension 10/16/2023 Assessment & Plan (10/17/2023 6:32 PM CDT): Home meds: Losartan 50 daily, Amlodipine 10 - BP 97/64 today in clinic, feels sometimes dizzy after taking them, dosnt measure blood pressure at home PLAN: - Change amlodipine to 5mg daily - Continue losartan 50mg daily - Keep blood pressure log - Instructed to call clinic in 1 week if still feeling presyncopal symptoms Protein-calorie malnutrition, unspecified severi ty 07/26/2022 Overview (10/17/2023): Wt Readings from Last 3 Encounters: 10/17/23 50.5 kg (111 lb 6.4 oz) 05/09/23 49.4 kg (109 lb) 05/08/23 49.6 kg (109 lb 6.4 oz) Assessment & Plan (10/17/2023 1:58 PM CDT): - BMI<18, albumin normal - weight slightly increased, now eating better and getting fitted for false teeth to assist with chewing PLAN: - Counseled on balanced protein diet and regular meals Vitamin D deficiency 09/03/2019 Assessment & Plan (10/17/2023 6:31 PM CDT): Vitamin D - 11 in 07/2022 Has been prescribed vit D 2 but not taking PLAN: - Restart treatment vitamin D 2 50K q7 days for 12 weeks Bilateral femoral artery stenosis 08/26/2018 PAD (peripheral artery disease) 08/26/2018 Assessment & Plan (10/17/2023 2:00 PM CDT): - Home meds: atorva 20, ASA 81 - symptoms well controlled, b/l iliac kissing stent placement in 2019 PLAN: - Continue Atorva 20 and ASA 81 Osteoporosis 07/03/2018 Assessment & Plan (10/17/2023 4:53 PM CDT): - Home meds: Ibandronate 150mg every 30 days, vit D 2 50K units q7 days - severe osteoporosis on DEXA 11/2021, improved from before PLAN: - Informed her to not take ibandronate (she did not take it yet) until Vit D is repleted - Refer to Endocrinology for further management of Severe Osteoporosis - Repeat Dexa scan 12/2023 Frailty 06/05/2018 Tobacco use disorder 01/13/2013 Assessment & Plan (10/17/2023 6:33 PM CDT): - No quitting attempts - has been prescribed chantix but never - 1ppd, 45, 45 py hx PLAN: - Nicoteine gum trial now, has gum and dosnt want prescription - will try but is still contemplating it Lumbosacral disc disease 01/13/2013 COPD (chronic obstructive pulmonary disease) Assessment & Plan (10/16/2023 1:55 PM CDT): Home meds: Albuterol q4prn, Advair wixela 1puff BID, Tiotropoim - questionable fill history PLAN: - Continue inhalers if needed Cervical spine arthritis 01/13/2013 Resolved Problems Problem Noted Date Diagnosed Date Resolved Date Candidiasis of vagina 10/29/20172023 Viral hepatitis C 12/30/2012 10/17/2023 Assessment & Plan (10/17/2023 4:53 PM CDT): Has been treated. Encounters Date Type Department Care Team Description 03/12/2025 Telephone [facility] [address] [place] [phone] Dea Kimball RN General 03/05/2025 Telephone [facility] [address] [place] [phone] Dea Kimball RN General 03/05/2025 Orders Only [facility] [address] [place] [address] [phone] Sol Kendrick MD 03/03/2025 11:07 AM CDT - 03/03/2025 11:59 PM CDT Hospital Encounter [facility] [address] [place] [address] Sol Kendrick MD Elledge, Christen R, MD Discharge Disposition: Home or Self Care 02/24/2025 9:58 AM CDT - 02/24/2025 11:59 PM CDT Hospital Encounter [facility] CAT SCAN [address] [place] [address] Sol Kendrick MD Discharge Disposition: Home or Self Care 02/24/2025 Travel from Last 3 Months Immunizations Immunization Administration Dates Next Due COVID ADRIEN PRIMARY 18+YR 04/19/2021, COVID PFIZER 12+YR 30MCG/0.3mL 04/19/2023 INFLUENZA VACCINE, ADJUVANTE D, QUADR. (FLUAD QUADRIVALENT; 65Y+) (AIIV4) 04/12/2021 INFLUENZA VACCINE, CELL CULT URE, QUADR. (FLUCELVAX QUADRIVALENT; 6MO+) (CCIIV4) 04/13/2020 INFLUENZA VACCINE, HIGH-DOSE , QUADR. (FLUZONE HIGH-DOSE QUADRIVALENT; 65Y+), 0.7 ML (HD-IIV4) 05/10/2022 INFLUENZA VACCINE, QUADR. (F LUZONE; FLULAVAL; FLUARIX; AFLURIA QUADRIVALENT; 6MO+), 0.5 ML (IIV4) 03/22/2023,05/14/2019 INFLUENZA VACCINE, TRIV. (FL UZONE; FLULAVAL; FLUARIX; AFLURIA TRIVALENT; 6MO+), 0.5 ML (IIV3) 05/07/2024 Influenza Intradermal 04/24/2018, 015,06/01/2014,2012 MODERNA SARS-COV-2 COVID-19 VACCINE 0.25ML 12/07/2021 PNEUMOCOCCAL PCV20 CONJ VAC IM 07/26/2022 PNEUMOCOCCAL PPSV23 06/25/2016 PNEUMOCOCCAL PPV VACCINE 03/23/2010 TDAP, HISTORIC VACCINE 02/13/2022 Zoster Hzv Vacc Recombinant Inj Im 07/29/2019 Family History Medical History Relation Name Comments Hypertension Brother 1 Hemochromatosis Brother 2 Hypertension Brother 2 Cancer - Skin, Non Melanoma Father Hypertension Father Hypertension Mother Relation Name Status Comments Brother 1 Alive Brother 2 Alive Father Mother Alive Social History Tobacco Use Types Packs/Day Years Used Date Smoking Tobacco: Every Day Cigarettes 1 45.4 Started: 11/24/1979 Smokeless Tobacco: Never Tobacco Cessation:Ready to Q uit: Not Asked; Counseling Given: Not Answered Comments:currently down to 10 cig/day 03/22/23 LUNG SCREENING CSDMV DOCUMENTATION Alcohol Use Standard Drinks/Week Comments No 0 (1 standard drink = 0.6 oz pur e alcohol) abstinent PHQ-2 Answer Date Recorded Patient Health Questionnaire-2 Score 0 09/03/2024 Comments No Sex and Gender Information Value Date Recorded Sex Assigned at Not on file Legal Sex Female 5:24 AM [employer]AND MILL GR[employer] Gender Identity Not on file Sexual Orientation Not on file Occupation Industry Job Start Date Job End Date disability Not on file Not on file Not on file Last Filed Vital Signs Vital Sign Reading Time Taken Comments Blood Pressure 160/96 03/03/2025 11:40 AM CDT Pulse 75 03/03/2025 11:40 AM CDT Temperature 36.2 C (97.2 F) 03/03/2025 11:40 AM CDT Respiratory Rate 18 03/03/2025 11:40 AM CDT Oxygen Saturation 98% 03/03/2025 11:40 AM CDT Inhaled Oxygen Concentration - - Weight 50.4 kg (111 lb 3.2 oz) 03/03/2025 11:40 AM CDT Height 172.7 cm (5' 8) 11/04/2024 12:15 PM CDT Body Mass Index 16.91 11/04/2024 12:15 PM CDT Plan of Treatment Upcoming Encounters Date Type Department Care Team (Late st Contact Info) Description 04/14/2025 10:00 AM CDT Appointment [facility] US [address] [place] [phone] Rhonda Brown MD [address] [place] [phone] 04/14/2025 11:00 AM CDT Appointment [facility] [address] [place] [phone] Rhonda Brown MD [facility] [facility] 2L DIV [place] [phone] 04/30/2025 11:15 AM [employer] Office Visit [facility] - Vascular [facility] [address] [facility] [place] [phone] Rhonda Brown MD [facility] [facility] 2L DIV [place] [phone] Nolan Griffin MD [address] [phone] 06/11/2025 10:00 AM [employer]ER Appointment [facility] CAT SCAN [address] [place] [phone] Sol Kendrick MD [address] [place] [phone] 06/16/2025 10:00 AM [employer] Appointment [facility] [address] [place] [address] [phone] Westley Duran MD [address] [place], [place] [phone] Health Maintenance Due Date Last Done Comments COLOGUARD (AGES 45-75) - COLON CA SCREENING [address] COLONOGRAPHY - COLON CA SCREENING 1965 FIT - COLON CA SCREENING 1965 FLEX SIG - COLON CA SCREENING 1965 ZOSTER VACCINE (2 of 2) 09/23/2019 07/29/2019 Respiratory Syncytial Virus (RSV) Vaccine Pt: or over 60 yrs (1 - Risk 60-74 years 1-dose series) 2023 MAMMOGRAM 12/20/2023 12/19/2021 (Done Outside Per Report) MEDICARE AWV CALENDAR YEAR 2024 10/17/2023, 07/26/2022, 02/17/2021, Additional history exists COVID-19 VACCINE ( season) 2025 04/19/2023, 12/07/2021, 04/19/2021, Additional history exists INFLUENZA VACCINE (#1) 2025 , 03/22/2023, 05/10/2022, Additional history exists LUNG CANCER SCREENING 07/22/2025 07/22/2024 , 04/25/2023, 12/20/2021, Additional history exists COLONOSCOPY - COLON CA SCREENING 01/03/2028 01/02/2018 (Done Outside Per Report) Colorectal Cancer Screening 01/03/2028 DTAP/TDAP/TD VACCINES (2 - Td or Tdap) 02/14/2032 02/13/2022 HIV SCREENING Completed 09/22/2021 PNEUMOCOCCAL VACCINE 50+ Completed 023, 06/25/2016, 03/23/2010 HEPATITIS C SCREENING Completed 10/17/2023 , 06/04/2018, 06/04/2018, Additional history exists DEPRESSION SCREENING Completed 09/03/2024, 10/17/2023, 10/17/2023, Additional history exists HEPATITIS B VACCINE Aged Out No longe r eligible based on patient's age to complete this topic HIB VACCINE Aged Out No longer eligi ble based on patient's age to complete this topic HPV VACCINE Aged Out No longer eligi ble based on patient's age to complete this topic MENINGOCOCCAL (Group B) VACCINE SHARED DECISION-MAKING Aged Out No longer eligible based on patient's age to complete this topic MENINGOCOCCAL GROUPS A/C/Y/W VACCINE Aged Out No longer eligible based on patient's age to complete this topic PAP with HPV Discontinued Medical Devices Implanted Type Area Cnc Milling Machinist Device Identifier Shelf Expiration Date Model / Serial / Lot Stent Trchbr 7mm 7fr 38mm 80cm Cvr Cath - [id number] Implanted:Qty: 1 on 09/13/2018 by Tyshawn Dunn MD at [facility] Right: Arterial [employer] 03/22/2020 [id number] / [id number] / [id number] Description:placed in right iliac Stent Trchbr 7mm 7fr 38mm 80cm Cvr Cath - [id number] Implanted:Qty: 1 on 09/13/2018 by Tyshawn Dunn MD at [facility] Left: Arterial [employer] 04/03/2021 [id number] / [id number] / [id number] Description:placed in left i liac Stent Biliary 6mm 37mm 80cm 40mm Balln - [id number] Implanted:Qty: 1 on 09/13/2018 by Tyshawn Dunn MD at [facility] Left: Arterial [employer] 04/05/2019 [id number] / [id number] / [id number] Description:placed in left i liac Procedures Procedure Name Priority Date/Time Associated Diagnosis Comments CT CHEST WO CONTRAST Routine 02/24/2025 10:05 AM CDT Adenocarcinoma of lower lobe of left lung (HCC) [C34.32] CT LUNG SCREEN LOW DOSE Routine 07/22/2024 1:52 PM [employer] GR[employer]ER Nicotine dependence, cigarettes, uncomplicated HIV-1 HIV-2 ANTIBODY + HIV P24 AG PANEL Routine 09/22/2021 2:22 PM CDT Screening examination for infectious disease HEPATITIS C RNA QUANTITATIVE Routine 04/19/2018 2:38 PM CDT Chronic hepatitis C without hepatic coma from Last 3 Months or Most Recently Relevant to Health Maintenance Results * CT Chest Wo Contrast (02/24/2025 10:05 AM CDT) Anatomical Region Laterality Modality Chest Computed Tomogra phy 02/24/2025 10:2 4 AM CDT Impressions 02/24/2025 3:29 PM CDT Impression: 1.Redemonstrated 6 mm groundglass opacity in the left lower lobe consistent with patient's known biopsy-proven adenocarcinoma. 2.New 4 mm nodule in the right upper lung (series 4 image 36). Continued to follow-up recommended. 3.Numerous unchanged multiple sub-5 mm groundglass and solid nodules in both lungs. 4.Redemonstrated tree-in-bud nodularity/opacities, likely sequela of prior infectious/inflammation. > Dictated by Bryce Fleming MD, (Millwork Estimator). > Dictated by Millwork Estimator I, Marcia Doty have personally reviewed and interpreted this examination/study. > Interpreting Provider: Marcia Doty on 02/24/2025 3:29 PM Narrative 02/24/2025 3:29 PM CDT PROCEDURE: CT CHEST WO CONTRAST, DATE/TIME OF EXAM: 02/24/2025 10:05 AM, LOCATION [facility] INDICATION: C34.32: Adenocarcinoma of lower lobe of left lung (HCC) ADDITIONAL CLINICAL INFORMATION: Ordering Provider Reason For Exam: Left lower lobe adenocarcinoma s/p SBRT. COMPARISON: CT chest 10/03/2024. TECHNIQUE: CT of the chest was performed without contrast according to standard protocol. Findings: Evaluation of visceral and vascular structures is degraded due to lack of intravenous contrast administration. Lower Neck and Axillae: Normal. Lungs: Mild emphysematous changes in both lungs. Biapical pleural parenchymal scarring and calcifications in the right upper lung. Redemonstrated tree-in-bud opacities in both lungs, most in the lingula, anterior segment of the right lower lung, and right middle lung. Unchanged 6 mm solid nodule in the left lower lung (series 4, image 46). Unchanged 5 mm groundglass nodule in the right lower lung (image 62). Decrease in size of the right lower lobe pulmonary nodule. Unchanged 3 mm nodule in the right middle lung (series 55). Interval seen 4 mm nodule in the right upper lung (image 36). Otherwise, unchanged multiple sub-3 mm nodules seen in both lungs. No pleural fluid or pneumothorax is present. Heart and Pericardium: The cardiac chambers are normal in size. No pericardial fluid or thickening is present. The coronary arteries are atherosclerotic. Mediastinum and Minerva: No enlarged lymph nodes are present. Calcified mediastinal and hilar lymph nodes. Thoracic Vasculature: The aorta and its branch vessels are atherosclerotic. Bones and Chest Wall: Bone windows demonstrate no suspicious lytic or blastic lesions. The visible osseous structures are intact. Mild degenerative changes are seen in the spine. Partially visualized anterior fusion of the cervical spine. The bones are diffusely demineralized. Increased thoracic kyphosis. Upper Abdomen: Multiple calcified granulomas in the spleen. Partially visualized atrophic left kidney. Procedure Note Marcia Koo MD - 02/24/2025 PROCEDURE: CT CHEST WO CONTRAST, DATE/TIME OF EXAM: 02/24/2025 10:05 AM, LOCATION [facility] INDICATION: C34.32: Adenocarcinoma of lower lobe of left lung (HCC) ADDITIONAL CLINICAL INFORMATION: Ordering Provider Reason For Exam: Left lower lobe adenocarcinoma s/p SBRT. COMPARISON: CT chest 10/03/2024. TECHNIQUE: CT of the chest was performed without contrast according to standard protocol. Findings: Evaluation of visceral and vascular structures is degraded due to lackof intravenous contrast administration. Lower Neck and Axillae: Normal. Lungs: Mild emphysematous changes in both lungs. Biapical pleural parenchymal scarring and calcifications in the right upper lung. Redemonstrated tree-in-bud opacities in both lungs, most in the lingula, anteriorsegment of the right lower lung, and right middle lung. Unchanged 6 mm solidnodule in the left lower lung (series 4, image 46). Unchanged 5 mm groundglass nodule in the right lower lung (image 62). Decrease in size of the right lower lobe pulmonary nodule. Unchanged 3 mm nodule in the right middlelung (series 55). Interval seen 4 mm nodule in the right upper lung (image36). Otherwise, unchanged multiple sub-3 mm nodules seen in both lungs. No pleural fluid or pneumothorax is present. Heart and Pericardium: The cardiac chambers are normal in size. No pericardial fluid orthickening is present. The coronary arteries are atherosclerotic. Mediastinum and Minerva: No enlarged lymph nodes are present. Calcified mediastinal and hilarlymph nodes. Thoracic Vasculature: The aorta and its branch vessels are atherosclerotic. Bones and Chest Wall: Bone windows demonstrate no suspicious lytic or blastic lesions. The visible osseous structures are intact. Mild degenerative changes areseen in the spine. Partially visualized anterior fusion of the cervicalspine. The bones are diffusely demineralized. Increased thoracic kyphosis. Upper Abdomen: Multiple calcified granulomas in the spleen. Partially visualizedatrophic left kidney. Impression: 1.Redemonstrated 6 mm groundglass opacity in the left lower lobeconsistent with patient's known biopsy-proven adenocarcinoma. 2.New 4 mm nodule in the right upper lung (series 4 image 36).Continued to follow-up recommended. 3.Numerous unchanged multiple sub-5 mm groundglass and solid nodules in both lungs. 4.Redemonstrated tree-in-bud nodularity/opacities, likely sequela ofprior infectious/inflammation. > Dictated by Bryce Fleming MD, (Millwork Estimator). > Dictated by Millwork Estimator I, Marcia Dtoy have personally reviewed and interpreted this examination/study. > Interpreting Provider: Marcia Doty on 02/24/2025 3:29 PM us Sol Kendrick MD CT ORDERABLES Final Result * CT LUNG CANCER SCREEN LOW DOSE (07/22/2024 1:52 PM [employer] GRINDER) Anatomical Region Laterality Modality Chest Computed Tomogra phy 07/22/2024 3:08 PM [employer] GRINDER Narrative 07/23/2024 4:04 PM SAND M[employer] GRINDER PROCEDURE: CT LUNG SCREEN LOW DOSE DATE/TIME OF EXAM: 07/22/2024 1:52 PM CLINICAL INFORMATION: None relevant/not provided if blank. Indication: F17.210: Nicotine dependence, cigarettes, uncomplicated Additional History: COMPARISON: Multiple priors, most recent low-dose cancer screening CT chest dated 04/25/2023. TECHNIQUE: CT of the chest was performed without intravenous contrast utilizing low dose protocol. CT dose reduction technique was used, including Automated Exposure Control. FINDINGS: Evaluation of visceral and vascular structures is degraded due to lack of intravenous contrast administration. A left sided aorta is present. The aorta and main pulmonary artery are normal in course and caliber. Mild atherosclerosis of the aorta and its major branching vessels is noted. No axillary, supraclavicular, mediastinal, or hilar lymphadenopathy is identified. Calcified hilar and mediastinal lymph nodes are consistent with prior granulomatous disease.. The thyroid attenuates normally. The heart is normal in size. No pericardial effusion is seen. Mild coronary artery atherosclerosis is present. No confluent consolidation. Stable findings of tree-in-bud nodularity/opacities in the lingula and anterior left lower lobe; interval development of right middle greater than lower lobe tree-in-bud nodularity/opacities since 04/25/2023. Stable biapical pleural-parenchymal scarring and paraseptal emphysematous changes across multiple prior exams dating back to 2018. Mild upper lobe predominant bronchiectatic changes. No pleural effusion is seen. No pneumothorax is identified. The trachea is patent without endobronchial lesion. Pulmonary Nodules: *Stable (from 06/21/2018) 5-6 mm groundglass nodule along the minor fissure in the right lower lobe (series 6 image 95) *Increased 6 mm nodule in the left lower lobe (series 6 image 71), previously 3 mm (series 6 image 68). *No new suspicious nodules. Multiple calcified granulomas within the spleen. The imaged upper abdominal viscera are otherwise within normal limits. The soft tissues are within normal limits. No lytic or blastic lesions are identified. Incompletely visualized postoperative changes from anterior cervical fusion and discectomy. No acute osseous abnormality. ASSESSMENT: Lung-RADS 4A: Suspicious: 3 month follow up LDCT. Increased in size 6 mm nodule in the left lower lobe, previously 3 mm (2022). Stable 5-6 mm right lower lobe groundglass nodule from 2018. Redemonstrated tree-in-bud nodularity/opacities within the lingula and anterior left lower lobe. Interval development of right middle greater than lower lobe tree-in-bud nodularity/opacities since 04/25/2023, concerning for progressive chronic infection such as mycobacterium avium intracellulare. Recommendation: Follow up would a CT chest in 6 months is recommended according to Lung-RADS criteria. However, short-term follow-up CT chest is recommended to document stability/progression of lingular, left lower lobe and right middle and lower lobe infectious findings. ACR Lung-RADS Category/Recommendations: 0: Need prior comparisons or additional images 1: Negative: 12 month follow up LDCT (Low Dose CT) 2: Benign Appearin month follow up LDCT 3: Probably Benign: 6 month follow up LDCT 4A: Suspicious: 3 month follow up LDCT (or immediate PET if >7mm solid component) 4B: Suspicious: Immediate Chest CT or PET if >7mm solid component 4X: Cat 3 or 4A nodules with additional suspicious findings Modifier-S: Significant NON-lung cancer findings Modifier-C: Prior treated Lung Cancer. For details of the ACR Lung-RADS program, categories and recommendations: 1) https://www.acr.org/Quality-Safety/Resources/LungRADS 2) Internet search: Lung-RADS Lung Cancer Screening 3) Contact [facility] thoracic nurse coordinator ([phone]) > Interpreting Provider: Yin Peters MD on 07/23/2024 4:04 PM Procedure Note Yin Peters MD - 07/23/2024 PROCEDURE: CT LUNG SCREEN LOW DOSE DATE/TIME OF EXAM: 07/22/2024 1:52 PM CLINICAL INFORMATION: None relevant/not provided if blank. Indication: F17.210: Nicotine dependence, cigarettes, uncomplicated Additional History: COMPARISON: Multiple priors, most recent low-dose cancer screening CT chest dated 04/25/2023. TECHNIQUE: CT of the chest was performed without intravenous contrast utilizing low dose protocol. CT dose reduction technique was used, including Automated ExposureControl. FINDINGS: Evaluation of visceral and vascular structures is degraded due to lackof intravenous contrast administration. A left sided aorta is present. The aorta and main pulmonary artery are normal in course and caliber. Mild atherosclerosis of the aorta and its major branching vessels is noted. No axillary, supraclavicular, mediastinal, or hilar lymphadenopathy is identified. Calcified hilar and mediastinal lymph nodes are consistentwith prior granulomatous disease.. The thyroid attenuates normally. The heart is normal in size. No pericardial effusion is seen. Mildcoronary artery atherosclerosis is present. No confluent consolidation. Stable findings of tree-in-bud nodularity/opacities in the lingula and anterior left lower lobe;interval development of right middle greater than lower lobe tree-in-bud nodularity/opacities since 04/25/2023. Stable biapicalpleural-parenchymal scarring and paraseptal emphysematous changes across multiple priorexams dating back to 2018. Mild upper lobe predominant bronchiectatic changes.No pleural effusion is seen. No pneumothorax is identified. The trachea is patent without endobronchial lesion. Pulmonary Nodules: *Stable (from 06/21/2018) 5-6 mm groundglass nodule along the minorfissure in the right lower lobe (series 6 image 95) *Increased 6 mm nodule in the left lower lobe (series 6 image 71), previously 3 mm (series 6 image 68). *No new suspicious nodules. Multiple calcified granulomas within the spleen. The imaged upperabdominal viscera are otherwise within normal limits. The soft tissues are within normal limits. No lytic or blastic lesions are identified. Incompletely visualized postoperative changes from anterior cervical fusion and discectomy. No acute osseous abnormality. ASSESSMENT: Lung-RADS 4A: Suspicious: 3 month follow up LDCT. Increased in size 6 mm nodule in the left lower lobe, previously 3 mm (2022). Stable 5-6 mm right lower lobe groundglass nodule from 2018. Redemonstrated tree-in-bud nodularity/opacities within the lingula and anterior left lower lobe. 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 Recommendation: Follow up would a CT chest in 6 months is recommended according to Lung-RADS criteria. However, short-term follow-up CT chest is recommended to document stability/progression of lingular, left lower lobe and right middle and lower lobe infectious findings. ACR Lung-RADS Category/Recommendations: 0: Need prior comparisons or additional images 1: Negative: 12 month follow up LDCT (Low Dose CT) 2: Benign Appearin month follow up LDCT 3: Probably Benign: 6 month follow up LDCT 4A: Suspicious: 3 month follow up LDCT (or immediate PET if >7mm solid component) 4B: Suspicious: Immediate Chest CT or PET if >7mm solid component 4X: Cat 3 or 4A nodules with additional suspicious findings Modifier-S: Significant NON-lung cancer findings Modifier-C: Prior treated Lung Cancer. For details of the ACR Lung-RADS program, categories andrecommendations: 1) https://www.acr.org/Quality-Safety/Resources/LungRADS 2) Internet search: Lung-RADS Lung Cancer Screening 3) Contact [facility] thoracic nurse coordinator ([phone]) > Interpreting Provider: Yin Peters MD on 07/23/2024 4:04 PM us Lisa Bran DO CT ORDERABLES Final Result * HIV-1 HIV-2 ANTIBODY + HIV P24 AG PANEL (09/22/2021 2:22 PM CDT) HIV Antigen/Antibod y 1 & 2 Non-reacti ve Non-react saul 09/22/2021 3:41 PM CDT [facility] Comment:No Laboratory eviden ce of HIV infection. Blood BLOOD SPECIMEN / Unknown Lab Venipuncture / Unknown 09/22/2021 2:22 PM CDT 09/22/2021 3:00 PM CDT us Ann Carlson MD LAB - CHEMISTRY ORDERABLES Final Result Performing Organization Address City/[facility]/ZIP Co de Phone Number [place] [id number] [place] [address], [facility] [phone] * HEPATITIS C RNA QUANTITATIVE (04/19/2018 2:38 PM CDT) Hepatitis C RNA PCR, Interp Not Detected Not Detected 04/26/2018 11:31 AM CDT [facility] Blood BLOOD SPECIMEN / Unknown Lab Venipuncture / Unknown 04/19/2018 2:38 PM CDT 04/19/2018 4:12 PM CDT Narrative [facility] - 04/26/2018 11:31 AM CDT The Hepatitis C viral (HCV) RNA analysis utilized a serum sample, real-time reverse operations support specialist PCR, and is reported as Not Detected, Detected (<12 IU/mL), Quantity (IU/mL) or >100,000,000 IU/mL. The limit of quantitation of the assay is 12 IU/mL (100% of samples with this HCV RNA level were detected). The linear range is from 12 IU/mL to 100,000,000 IU/mL. Values less than 12 IU/mL are reported as Detected (<12 IU/mL). Values greater than 100,000,000 IU/mL are reported as > 100,000,000 IU/mL. The detection/quantitation of HCV RNA in serum is based on the isolation of HCV RNA with reverse operations support specialist of genomic HCV RNA followed by real-time PCR in the presence of an unrelated RNA internal control. The internal control ensures that RNA is isolated, and that no general significant inhibitors of the RT-PCR process are present. The analysis was performed using a U.S. FDA approved test methodology ([place] V[facility] Access Real Time HCV). us Jacob Cuevas MD LAB - CHEMISTRY ORDERAB LES Final Result Performing Organization Address City/[facility]/ZIP Co de Phone Number [facility] [address] [place] [address], [facility] [phone] from Last 3 Months or Most Recently Relevant to Health Maintenance Insurance MANAGED MEDICARE ADV MANAGED MEDICARE ADV Advance Directives * Full Code (Latest Code Status on File) Date Activated Date Inactivated Comments 09/13/2018 5:57 PM 09/14/2018 4:36 PM Care Teams Continuous Improvement Engineer Relationship Specialty Start Date End Date Noah Aleman MD [address] [facility] [place] [address] PCP - General Internal Medicine 10/17/23 Lisa Bran DO [address] DIV OF [place] [address] [facility] [place] P4 11/24/23 Nolan Griffin MD [address] [place] [address] Surgeon Vascular Surgery 07/26/22 Lisa Bran DO [address] DIV OF [place] [address] Physician Internal Medicine 04/09/23 Kathryn Alarcon MD [address] [place] [address] Surgeon Dermatology 04/09/23
--- OUTSIDE RECORDS SUMMARY | 2025-04-08 17:44 | XMS_ITS | Clinical Summary ---
Author Organization [facility] Address [address] [address] Phone Care Team Providers Care Knuckler Name Role Phone No, Physician Primary Care Provider [phone] Allergies No known active allergies Medications albuterol HFA (PROVENTIL HFA,VENTOLIN HFA,PROAIR HFA) 90 mcg/actuation inhaler 01/02/2022 Active amLODIPine (NORVASC) 10 mg tablet Take 10 mg by mouth daily 11/08/2021 Active atorvastatin (LIPITOR) 20 mg tablet Take 20 mg by mouth nightly at bedtime. 01/03/2022 Active aspirin 81 mg enteric coated tablet Take 81 mg by mouth daily Active Active Problems Problem Noted Date Diagnosed Date Basal cell carcinoma (BCC) of left lower leg Overview (01/19/2022): Added automatically from request for surgery [id number] Immunizations Immunization Administration Dates Next Due Influenza, Quad, Adjuvantated, Intramuscular Pneumococcal, Unspecified 06/25/2016 Surgical History Surgery Date Site/Laterality Comments CERVICAL FUSION SPINE SURGERY rods in lower back RIB FRACTURE SURGERY ribs removed due to tumor CORONARY ANGIOPLASTY WITH ST ENT PLACEMENT 2 stents Medical History Medical History Date Comments Hypertension Hyperlipidemia Copd skin cancer Social History Tobacco Use Types Packs/Day Years Used Date Smoking Tobacco: Every Day Cigarettes Smokeless Tobacco: Never Tobacco Cessation:Ready to Q uit: Not Asked; Counseling Given: Not Answered AUDIT-C Answer Date Recorded Frequency of Alcohol Consumption Not on file 03/03/2022 Q2: How many drinks containi ng alcohol do you have on a typical day when you are drinking? 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 Gender Identity Not on file Sexual Orientation Not on file Obstetrics History Plan of Treatment Health Maintenance Due Date Last Done Comments Breast Cancer Screening-Mammogram 1963 Cervical Cancer Screening 1963 Colon Cancer Screening-Colonoscopy 1963 Depression Screening 1963 Hepatitis C Screening 1963 DTaP/Tdap/Td Vaccine (1 - Tdap) 1974 Hepatitis B Screening 1981 Regular Well Visit/Exam 18-64 1981 Pneumococcal vaccine <65 (1 of 2 - PCV) 1982 06/25/2016 Zoster Vaccine (1 of 2) 2013 Covid-19 Vaccine (4 - season) 2025 12/07/2021, 04/19/2021, 08/31/2020 Influenza Vaccine (#1) 2025 04/12/2021 Insurance [employer] [facility] AETNA [facility] Care Teams Knuckler Relationship Specialty Start Date End Date No, Physician PCP - General 12/19/21
--- OUTSIDE RECORDS SUMMARY | 2025-04-08 17:44 | XMS_ITS | Encounter Summary ---
Author Organization [facility] Address [address] [place] [address] Care Team Providers Care It Service Delivery Manager Name Role Phone Lisa Bran DO Primary Care Provider [phone] Izabella Pruitt DO Unavailable [phone] Ann Carlson MD Primary Care Provider Jessica Cruz MD Unavailable Lisa Bran DO Primary Care Provider Nolan Griffin MD Unavailable [phone] Jessica Cruz MD Unavailable [phone] Brandon Worrell MD Primary Care Provider [phone] Lisa Bran DO Unavailable [phone] Kathryn Alarcon MD Unavailable [phone] Noah Aleman MD Primary Care Provider Lisa Bran DO Unavailable [phone] Reason for Visit * Reason Onset Date Comments Cough 06/27/2019 Encounter Details Date Type Department Care Team (Late st Contact Info) Description 06/27/2019 Telephone [facility] General Internal Medicine [address] [facility] [address] [place] [address] Lisa Bran DO [address] [facility] [address]L DIV OF [facility] [place] [address] Cough Social History Tobacco Use Types Packs/Day Years Used Date Smoking Tobacco: Every Day Cigarettes 1 40 Smokeless Tobacco: Never Comments:currently down to 1 0 cig/day Alcohol Use Standard Drinks/Week Comments No 0 (1 standard drink = 0.6 oz pur e alcohol) abstinent Comments No Sex and Gender Information Value Date Recorded Sex Assigned at Not on file Legal Sex Female 5:[address] SPRINKLER Gender Identity Not on file Sexual Orientation Not on file Occupation Industry Job Start Date Job End Date disability Not on file Not on file Not on file documented as of this encounter Miscellaneous Notes * Telephone Encounter - GonzalezJose salguero - 06/27/2019 9:48 AM CST Pt called to inform the provider that she went to the ED at [facility] in [facility] yesterday related to her cough. Pt stated she was informed that she did not have pnuemonia or the flu, and that her cough was related to a virus. Pt was prescribed prednisone and nothing else. Caller reportsa fever on and off, but has not actually taken her temperature, and has been coughing up white phl egm, sometimes yellow in color, and had some diarrhea this morning, denies a stuffy nose. Caller requesting something for the cough, [place] informed her to try warm liquids, otc cough drops and cough medication, which she has not yet tried. Also informed caller that her message would be sent to the provider, pharmacy information verified Message routed to provider ET SPRINKLER documented in this encounter Plan of Treatment Upcoming Encounters Date Type Department Care Team (Late st Contact Info) Description 04/14/2025 10:00 AM CDT Appointment [facility] VASCULAR US [address] [place] [phone] Rhonda Brown MD [address] [place] [address] 04/14/2025 11:00 AM CDT Appointment [facility] VASCULAR US [address] [place] [phone] Rhonda Brown MD [facility]5 [facility] 2L DIV [place] [address] 04/30/2025 11:[address] SPRINKLER Office Visit [facility] - Vascular Surgery [address] [facility] [place] [address] Rhonda Brown MD [facility]5 [facility] 2L DIV [place] [address] Nolan Grfifin MD [address] [address] 06/11/2025 10:[address] SPRINKLER Appointment [facility] CAT SCAN [address] [place] [address] Sol Kendrick MD [address] [place] [phone] 06/16/2025 10:[address] SPRINKLER Appointment [facility] RAD ONC [address] [place] [phone] Westley Duran MD [address] [place] [address] documented as of this encounter Visit Diagnoses Not on filedocumented in this encounter Care Teams It Service Delivery Manager Relationship Specialty Start Date End Date Lisa Bran DO [address] [place] [address] PCP - General 04/24/18 09/05/21 Ann Carlson MD [address] [facility] 2L DIV OF [place] [address] PCP - General Internal Medicine 09/06/21 09/11/21 Lisa Bran DO [address] DIV OF [place] [address] PCP - General 09/12/21 04/08/23 Brandon Worrell MD [address] [facility] [place] [address] PCP - General Internal Medicine 04/09/23 10/16/23 Noah Aleman MD [address] [facility] [place] [address] PCP - General Internal Medicine 10/17/23 Lisa Bran DO [address] DIV OF [place] [address] PCP Counts include 234 beds at the [facility] P4 11/24/23 Izabella Pruitt DO [address] [place] [address] Resident - PCP Internal Medicine 08/15/18 09/05/21 Jessica Cruz MD [address] DIV OF [facility] INTERNAL MEDICINE [place] Resident Internal Medicine 09/06/21 04/08/23 Nolan Griffin MD [address] DIV [place] [address] Surgeon Vascular Surgery 07/26/22 Jessica Cruz MD [address] DIV OF GEN INTERNAL MEDICINE [place], [place] Resident - PCP Internal Medicine 07/27/22 04/08/23 Lisa Bran DO [address] DIV OF [place] [address] Physician Internal Medicine 04/09/23 Kathryn Alarcon MD [address]L [place] [address] Surgeon Dermatology 04/09/23 documented as of this encounter
--- OUTSIDE RECORDS SUMMARY | 2025-04-08 17:44 | XMS_ITS | Encounter Summary ---
Author Organization [facility] Address [address] [facility] [place] [address] Care Team Providers Care Electro Tech Name Role Phone Jessica Cruz MD Unavailable Lisa Bran DO Primary Care Provider [phone] Nolan Griffin MD Unavailable Jessica Cruz MD Unavailable Brandon Worrell MD Primary Care Provider [phone] Lisa Bran DO Unavailable Kathryn Alarcon MD Unavailable [phone] Noah Aleman MD Primary Care Provider Lisa Bran DO Unavailable [phone] Encounter Details Date Type Department Care Team (Late st Contact Info) Description 06/27/2022 Telephone [facility] [address] [place] [address] Lisa Bran DO [address] [place] [address] Social History Tobacco Use Types [...] on file 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 Pt stated she had insurance issues that have no been resolved and would love to resume care with the Dr. Pt callback to discuss this matter is [phone] RMATION DELIVERY ANALYST documented in this encounter Plan of Treatment Upcoming Encounters Date Type Department Care Team (Late st Contact Info) Description 04/14/2025 10:00 AM CDT Appointment [facility] VASCULAR US [facility] [place] [address] Rhonda Brown MD [address] [facility] 2L DIV [place] [address] 04/14/2025 11:00 AM CDT Appointment [facility] VASCULAR US [facility] [place] [address] Rhonda Brown MD [facility]5 [facility] 2L DIV [place] [address] 04/30/2025 11:15 AM INFORMATION DELIVERY ANALYST Office Visit [facility] - Vascular Surgery [facility]5 [facility], [place] [address] Rhonda Brown MD [address] [facility] 2L DIV [place] [address] Nolan Griffin MD [address] [address] 06/11/2025 10:00 AM INFORMATION DELIVERY ANALYST Appointment [facility] CAT SCAN [address] [place] [phone] Sol Kendrick MD [address] [place], [place] [phone] 06/16/2025 10:00 AM INFORMATION DELIVERY ANALYST Appointment [facility] RAD ONC [address] [place], [place] [phone] Westley Duran MD [address] [place] [address] documented as of this encounter Visit Diagnoses Not on filedocumented in this encounter Care Teams Electro Tech Relationship Specialty Start Date End Date Lisa Bran DO [address] [facility] 2L DIV OF [facility] [place] [address] PCP - General 09/12/21 04/08/23 Brandon Worrell MD [address] [facility] [place] [address] PCP - General Internal Medicine 04/09/23 10/16/23 Noah Aleman MD [address] [facility] [place] [address] PCP - General Internal Medicine 10/17/23 Lisa Bran DO [address] [facility] 2L DIV OF [facility] [place] [address] PCP - [facility] [place] P4P 11/24/23 Jessica Cruz MD [address] [facility] 2L DIV OF [facility] INTERNAL [place] Resident Internal Medicine 09/06/21 04/08/23 Nolan Griffin MD [address] DIV [place] [address] Surgeon Vascular Surgery 07/26/22 Jessica Cruz MD [address] DIV OF GEN INTERNAL MEDICINE [place], [place] Resident - PCP Internal Medicine 07/27/22 04/08/23 Lisa Bran DO [address] DIV OF GEN [place] [address] Physician Internal Medicine 04/09/23 Kathryn Alarcon MD [address] [place] [address] Surgeon Dermatology 04/09/23 documented as of this encounter
--- OUTSIDE RECORDS SUMMARY | 2025-04-08 17:44 | XMS_ITS | Encounter Summary ---
Author Organization [facility] Address [address] [place] [address] Care Team Providers Care Church Communications Administrator Name Role Phone Lisa Bran DO Primary Care Provider Izabella Pruitt DO Unavailable [phone] Ann Carlson MD Primary Care Provider Jessica Cruz MD Unavailable Lisa Bran DO Primary Care Provider Nolan Griffin MD Unavailable [phone] Jessica Cruz MD Unavailable Brandon Worrell MD Primary Care Provider [phone] Lisa Bran DO Unavailable Kathryn Alarcon MD Unavailable [phone] Noah Aleman MD Primary Care Provider Lisa Bran DO Unavailable [phone] Encounter Details Date Type Department Care Team (Late st Contact Info) Description 07/04/2019 Telephone [facility] General Internal Medicine [address] [address] Lisa Bran DO [address] 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 Pt calling in c/o canker sores in mouth and sore throat. Pt states I feel like I have little itty bitty cuts on back of lips and roof of mouth. Pt states she thinks it is d/t nebulizer tx and reports has been rinsing mouth w/ water after tx's. Pt reports when she was in hospital she rcvd a yellow bottle that tasted like bananas that helpedw/ sore throat but does not know name of medicine at this time. Pt states she is concerned about doing nebulizer tx d/t soreness but verbalized will continue neb tx if needed. TN informed pt will send request to provider. TN offered triage. Pt declined. Closing statement provided. Pt verbalized understanding. CB# [phone] [place] putting in refill request. Routed to provider for further review ING MACHINE OPERATOR HELPER documented in this encounter Plan of Treatment Upcoming Encounters Date Type Department Care Team (Late st Contact Info) Description 04/14/2025 10:00 AM CDT Appointment [facility] VASCULAR US [address] [place] [address] Rhonda Brown MD [address] [place] [address] 04/14/2025 11:00 AM CDT Appointment [facility] VASCULAR US [address] [place] [address] Rhonda Brown MD [address] [place] [address] 2L [place] [address] 04/30/2025 11:15 AM BRAZING MACHINE OPERATOR HELPER Office Visit [facility] - Vascular Surgery 1225 [facility], [place] [address] Rhonda Brown MD 1225 [facility] 2L [place] [address] Nolan Griffin MD 6400 [facility] 202 [place] [address] 06/11/2025 10:00 AM BRAZING MACHINE OPERATOR HELPER Appointment [facility] CAT SCAN [address] [place] [address] Sol Kendrick MD [address] [place] [address] [id number] 06/16/2025 10:00 AM BRAZING MACHINE OPERATOR HELPER Appointment [facility] RAD ONC [address] [place] [id number] Westley Duran MD [address] [place], [place] [phone] documented as of this encounter Visit Diagnoses Not on filedocumented in this encounter Care Teams Church Communications Administrator Relationship Specialty Start Date End Date Lisa Bran DO [address] [place] [address] PCP - General 04/24/18 09/05/21 [place] [address] [place] [address] 2L [place] [address] PCP - General Internal Medicine 09/06/21 09/11/21 Lisa Bran DO [address] 2L [place] [address] PCP - General 09/12/21 04/08/23 Brandon Worrell MD [address] [facility] [place] [place] [address] PCP - General Internal Medicine 04/09/23 10/16/23 Noah Aleman MD [address] [facility] [place] [place] [address] PCP - General Internal Medicine 10/17/23 Lisa Bran DO [address] 2L [place] [phone] PCP - [facility] P4P 11/24/23 Izabella Pruitt DO [address] [place] [address] Resident - PCP Internal Medicine 08/15/18 09/05/21 Jessica Cruz MD [address] 2L DIV OF GEN INTERNAL MEDICINE [place] Resident Internal Medicine 09/06/21 04/08/23 Nolan Griffin MD [address] 2L [place] [address] Surgeon Vascular Surgery 07/26/22 Jessica Cruz MD [address] 2L DIV OF GEN [place]NAL [place] Resident - PCP Internal Medicine 07/27/22 04/08/23 Lisa Bran DO [address] 2L [place] [address] Physician Internal Medicine 04/09/23 Kathryn Alarcon MD [address] 3L [place] [address] Surgeon Dermatology 04/09/23 documented as of this encounter
--- OUTSIDE RECORDS SUMMARY | 2025-04-08 17:44 | XMS_ITS | Encounter Summary ---
Author Organization [facility] Address [address] [facility] [place] [address] Care Team Providers Care Refrigeration Engineering Teacher Name Role Phone Lisa Bran DO Primary Care Provider [phone] Izabella Pruitt DO Unavailable [phone] Ann Carlson MD Primary Care Provider Jessica Cruz MD Unavailable Lisa Bran DO Primary Care Provider [phone] Nolan Griffin MD Unavailable Jessica Cruz MD Unavailable [phone] Brandon Worrell MD Primary Care Provider [phone] Lisa Bran DO Unavailable [phone] Kathryn Alarcon MD Unavailable [phone] Noah Aleman MD Primary Care Provider Lisa Bran DO Unavailable [phone] Reason for Visit * Reason Onset Date Comments MEDICATION REFILL 07/04/2019 Encounter Details Date Type Department Care Team (Late st Contact Info) Description 07/04/2019 Refill [facility] General Internal Medicine [address] [place] [address] Lisa Bran DO [address] [facility] 2L [facility] [place] [phone] MEDICATION REFILL Social History Tobacco Use Types Packs/Day Years Used Date Smoking Tobacco: Every Day Cigarettes 1 40 Smokeless Tobacco: Never Comments:currently down to 1 0 cig/day Alcohol Use Standard Drinks/Week Comments No 0 (1 standard drink = 0.6 oz pur e alcohol) abstinent Comments No Sex and Gender Information Value Date Recorded Sex Assigned at Not on file Legal Sex Female 5:24 AM CORRAL BOSS Gender Identity Not on file Sexual Orientation Not on file Occupation Industry Job Start Date Job End Date disability Not on file Not on file Not on file documented as of this encounter Miscellaneous Notes * Telephone Encounter - Sybil Riley - 07/04/2019 9:41 AM CST Pt calling in stating she was recently in hospital for pneumonia at [facility]. Pt calling in c/o canker sores in [...] Closing statement provided. Pt verbalized understanding. CB# [phone] [place] putting in refill request but not attaching med d/t MD further review. [place] verified pharmacy. Routed to provider for further review AL BOSS documented in this encounter Plan of Treatment Upcoming Encounters Date Type Department Care Team (Late st Contact Info) Description 04/14/2025 10:00 AM CDT Appointment [facility] VASCULAR US [address] [place] [address] Rhonda Brown MD 1225 [facility] 2L [facility] [place] [address] 04/14/2025 11:00 AM CDT Appointment [facility] VASCULAR US [address] [place] [address] Rhonda Brown MD [address] [place] [address] 2L [place] [address] 04/30/2025 11:15 AM CORRAL BOSS [facility] 1225 [facility], [place] [address] Rhonda Brown MD [address] [place] [address] 2L [place] [address] Nolan Griffin MD [address] [address] 06/11/2025 10:00 AM CORRAL BOSS Appointment [facility] CAT SCAN [address] [place] [address] Sol Kendrick MD [address] [place] [id number] 06/16/2025 10:00 AM CORRAL BOSS Appointment [facility] RAD ONC [address] [place] [address] [phone] Westley Duran MD 6420 [place] [address] documented as of this encounter Visit Diagnoses Not on filedocumented in this encounter Care Teams Refrigeration Engineering Teacher Relationship Specialty Start Date End Date Lisa Bran DO [facility]5 [place] [address] PCP - General 04/24/18 09/05/21 Ann Carlson MD [address] [place] [address] 2L DIV [place] [phone] PCP - General Internal Medicine 09/06/21 09/11/21 Lisa Bran DO [address] 2L DIV OF [facility] [place] [address] PCP - General 09/12/21 04/08/23 Brandon Worrell MD 1201 [facility] [place] [address] PCP - General Internal Medicine 04/09/23 10/16/23 Noah Aleman MD 1201 [facility] [place] [address] PCP - General Internal Medicine 10/17/23 Lisa Bran DO [address] 2L DIV OF [facility] [place] [address] PCP - [facility] DREW [place] P4P 11/24/23 Izabella Pruitt DO [address] [place] [address] Resident - PCP Internal Medicine 08/15/18 09/05/21 Jessica Cruz MD [address] 2L DIV OF GEN INTERNAL MEDICINE [place], [place] Resident Internal Medicine 09/06/21 04/08/23 Nolan Griffin MD [address] 2L [place] [address] Surgeon Vascular Surgery 07/26/22 Jessica Cruz MD [address] 2L DIV OF GEN INTERNAL [place]IC[place] Resident - PCP Internal Medicine 07/27/22 04/08/23 Lisa Bran DO [address] 2L DIV [place] [address] Physician Internal Medicine 04/09/23 Kathryn Alarcon MD [address] 3L [place] [address] Surgeon Dermatology 04/09/23 documented as of this encounter
--- OUTSIDE RECORDS SUMMARY | 2025-04-08 17:44 | XMS_ITS | Encounter Summary ---
Author Organization [facility] Address [address] [facility] [place] [address] Care Team Providers Care Survey Methodologist Name Role Phone Jessica Cruz MD Unavailable [phone] Lisa Bran DO Primary Care Provider [phone] Nolan Griffin MD Unavailable [phone] Jessica Cruz MD Unavailable Brandon Worrell MD Primary Care Provider [phone] Lisa Bran DO Unavailable Kathryn Alarcon MD Unavailable [phone] Noah Aleman MD Primary Care Provider Lisa Bran DO Unavailable Reason for Visit * Reason Onset Date Comments Nurse Only 10/10/2022 Encounter Details Date Type Department Care Team (Late st Contact Info) Description 10/10/2022 Telephone [facility] General Dermatology 1225 [facility], [place] [address] Sahara Elizabeth MD [address] [place] [address] 3 [place] [address] Nurse Only Social History Tobacco Use Types Packs/Day Years Used Date Smoking Tobacco: Every Day Cigarettes 1 40 Smokeless Tobacco: Never Comments:currently down to 1 0 cig/day Alcohol Use Standard Drinks/Week Comments No 0 (1 standard drink = 0.6 oz pur e alcohol) abstinent PHQ-2 Answer Date Recorded PHQ2 TOTAL SCORE 0 07/26/2022 Comments No Sex and Gender Information Value Date Recorded Sex Assigned at Not on file Legal Sex Female 5:24 AM HEART SPECIALIST Gender Identity Not on file Sexual Orientation Not on file Occupation Industry Job Start Date Job End Date disability Not on file Not on file Not on file documented as of this encounter Miscellaneous Notes * Telephone Encounter - Dahlia Erwin MD - 10/16/2022 5:44 PM CDT I called pt She has excision coming up for BCC She wants to know if needs to stop ASA. She is on the ASA due to stents that were put into vessels in her groin. I said given the stents, I would continue the ASA * Telephone Encounter - Toy Pruitt - 10/10/2022 3:06 PM CDT Pt has questions about her JANETH procedure on 10/25/22. Best time to call is after 2:30 documented in this encounter Plan of Treatment Upcoming Encounters Date Type Department Care Team (Late st Contact Info) Description 04/14/2025 10:00 AM CDT Appointment [facility] VASCULAR US [address] [place] [address] Rhonda Brown MD 1225 [facility] 2L [place] [address] 04/14/2025 11:00 AM CDT Appointment [facility] VASCULAR US [address] [place] [address] Rhonda Brown MD 1225 [facility] 2L [place] [address] 04/30/2025 11:15 AM HEART SPECIALIST [facility] 1225 [facility], [place] [address] Rhonda Brown MD [facility] 2L [place] [address] Nolan Griffin MD 6400 [facility] 202 [place] [address] 06/11/2025 10:00 AM HEART SPECIALIST Appointment [facility] CAT SCAN [address] [place] [address] Sol Kendrick MD [address] [place] [phone] 06/16/2025 10:00 AM HEART SPECIALIST Appointment [facility] RAD ONC [address] [place] [address] [phone] Westley Duran MD [address] [place], [place] [phone] documented as of this encounter Visit Diagnoses Not on filedocumented in this encounter Care Teams Survey Methodologist Relationship Specialty Start Date End Date Lisa Bran DO [address] [place] [address] 2L DIV [place] [address] PCP - General 09/12/21 04/08/23 Brandon Worrell MD [address] [place] [address] [place] [address] PCP - General Internal Medicine 04/09/23 10/16/23 Noah Aleman MD [address] [place] [address] [place] [address] PCP - General Internal Medicine 10/17/23 Lisa Bran DO [address] 2L [place] [address] PCP - [facility] DREW [place] P4P 11/24/23 Jessica Cruz MD [address] 2L DIV OF [facility] INTERNAL MEDICINE [place] Resident Internal Medicine 09/06/21 04/08/23 Nolan Griffin MD [address] 2L [place] [address] Surgeon Vascular Surgery 07/26/22 Jessiac Cruz MD [address] 2L DIV OF [facility] INTERNAL MEDICINE [place] Resident - PCP Internal Medicine 07/27/22 04/08/23 Lisa Bran DO [address] 2L DIV OF [facility] [place] [address] Physician Internal Medicine 04/09/23 Kathryn Alarcon MD [address] 3L [place] [address] Surgeon Dermatology 04/09/23 documented as of this encounter
--- OUTSIDE RECORDS SUMMARY | 2025-04-08 17:44 | XMS_ITS | Encounter Summary ---
Author Organization [facility] Address [address] [facility] [place] [address] Care Team Providers Care Cook Soup Name Role Phone Jessica Cruz MD Unavailable [phone] Lisa Bran DO Primary Care Provider [phone] Nolan Griffin MD Unavailable [phone] Jessica Cruz MD Unavailable Brandon Worrell MD Primary Care Provider Lisa Bran DO Unavailable Kathryn Alarcon MD Unavailable [phone] Noah Aleman MD Primary Care Provider [phone] Lisa Bran DO Unavailable Encounter Details Date Type Department Care Team (Late st Contact Info) Description 12/29/2022 Telephone [facility] - Centralized Scheduling [address] [place] [address] Jaki Cedillo DO [address] [place] [address] Social History Tobacco Use Types Packs/Day Years [...] on file Legal Sex Female 5:24 AM SALVAGER Gender Identity Not on file Sexual Orientation Not on file Occupation Industry Job Start Date Job End Date disability Not on file Not on file Not on file documented as of this encounter Plan of Treatment Upcoming Encounters Date Type Department Care Team (Late st Contact Info) Description 04/14/2025 10:00 AM CDT Appointment [facility] VASCULAR US [address] [place] [address] Rhonda Brown MD [address] [place] [address] 2L [place] [address] 04/14/2025 11:00 AM CDT Appointment [facility] VASCULAR US [address] [place] [address] Rhonda Brown MD [address] [place] [address] 2L [place] [address] 04/30/2025 11:15 AM SALVAGER Office Visit [facility] - Vascular Surgery [address] [place] [address], [place] [address] Rhonda Brown MD [address] [place] [address] 2L [place] [address] Nolan Griffin MD [address] [facility] 202 [place] [address] 06/11/2025 10:00 AM SALVAGER Appointment [facility] CAT SCAN [address] [place] [address] [place] [address] [place] [phone] 06/16/2025 10:00 AM SALVAGER Appointment [facility] RAD ONC [address] [place] [address] Westley Duran MD [address] [place] [address] documented as of this encounter Visit Diagnoses Not on filedocumented in this encounter Care Teams Cook Soup Relationship Specialty Start Date End Date Lisa Bran DO [address] 2L DIV OF [facility] [place] [address] PCP - General 09/12/21 04/08/23 Brandon Worrell MD 1201 [facility] [place] [place] [address] PCP - General Internal Medicine 04/09/23 10/16/23 Noah Aleman MD 1201 [facility] [place] [address] PCP - General Internal Medicine 10/17/23 Lisa Bran DO [address] 2L DIV OF [facility] [place] [address] PCP - [facility] DREW [place] P4P 11/24/23 Jessica Cruz MD [address] 2L DIV OF [facility] [place] INTERNAL [place], [place] Resident Internal Medicine 09/06/21 04/08/23 Nolan Griffin MD [address] 2L [place] [address] Surgeon Vascular Surgery 07/26/22 Jessica Cruz MD [address] 2L DIV OF [facility] [place] INTERNAL [place] Resident - PCP Internal Medicine 07/27/22 04/08/23 Lisa Bran DO [address] 2L DIV OF [facility] [place] [address] Physician Internal Medicine 04/09/23 Kathryn Alarcon MD [address] 3L [place] [address] Surgeon Dermatology 04/09/23 documented as of this encounter
[2025-04-08] MEDS: MAGNESIUM SULF 2 GM/WATER 50ML 2 GM/50 ML BAG IVPB (18:11)
[2025-04-08 19:52] LABS: Troponin I 0.552 ng/mL (0.000-0.034)
--- NOTE | 2025-04-08 19:59 | PM.IMHP ---
H&P: HPI History of Present Illness Date/Time: 04/08/25 19:59 Chief Complaint: Shortness of breath Narrative: This is a 59-year-old female patient who has stage I lung cancer with completed radiation treatment, tobacco abuse, and COPD. She presented to the emergency department today with nausea and vomiting with black tarry stools and shortness of breath. She stated that this has been ongoing for approximately 2 days. She is not on any blood thinners and has had no change in her medication. She stated that she completed radiation treatment approximately January of this year. Today she had a large bowel movement that was dark and tarry. She has been short of breath for 2 days but denies any chest pressure. Her white count was noted to be 11.1. H and H is 17.3 and 50.7. Her sodium is 136 today and she has an anion gap of 15. BUN is 17 with a creatinine of 1.35. GFR is 40. The initial troponin was found to be 0.753 with a 3 hour troponin of 0.552. Chest x-ray was read as no acute cardiopulmonary findings. Chest abdomen pelvis CTA was read as the followingNegative for pulmonary embolism. Probable bilateral bronchopneumonia superimposed on chronic lung disease. There are micronodules detailed above which are probably infectious, underlying neoplasm is not excluded and follow-up is warranted to ensure stability or resolution. 2. No acute intra-abdominal process. Incidental findings above. She was started on vancomycin, cefepime, magnesium, and normal saline in the emergency room. EKG was read as SINUS RHYTHM POSSIBLE RIGHT ATRIAL ENLARGEMENT POSSIBLE LEFT ATRIAL ENLARGEMENT ANTEROSEPTAL INFARCT, AGE INDETERMINATE PEAKED T WAVES- CONSIDER HYPERKALEMIA PROLONGED QT INTERVAL ABNORMAL ECG Compared to ECG 04/08/2025 16:22:48 HEART RATE HAS DECREASED Electronically Signed On 04-08-2025 18:07:20 CDT by Low CANELA The patient is being admitted to inpatient status on the date of service of 04/08/2025 Review of Systems Constitutional: Constitutional: Reports as per HPI and Reports no additional constitutional complaints Eyes: Eyes: Reports as per HPI and Reports no additional eye complaints ENT: Reports no additional ear, nose, mouth, and throat complaints and Reports Normal hearing present Cardiovascular: Cardiovascular: Reports no additional cardiovascular complaints Respiratory: Respiratory: Reports as per HPI and Reports no additional respiratory complaints Gastrointestinal: Gastrointestinal: Reports as per HPI and Reports no additional gastrointestinal complaints Genitourinary: Genitourinary: Reports no additional female genitourinary complaints Musculoskeletal: Musculoskeletal: Reports no additional musculoskeletal complaints Integumentary/Breasts: Skin/Breast: Reports system reviewed and no additional complaints, except as docu Neurologic: Reports no additional neurologic complaints and Reports Normal hearing present Psychiatric: Psychiatric: Reports no additional psychiatric complaints and Reports as per HPI Hematologic/Lymphatic: Hematologic/Lymphatic: Reports no additional hematologic/lymphatic complaints Allergic/Immunologic: Allergic/Immunologic: Reports no additional allergic/immunologic complaints [facility] Past Medical History Medical History (Updated 04/09/25 @ 16:16 by MARU Marcos) Nausea and vomiting in adult Melena Squamous cell carcinoma of lung, stage I /radiation completed Chronic GERD HTN (hypertension) with goal to be determined Hyperlipidemia Osteoporosis Liver failure Hepatitis C COPD (chronic obstructive pulmonary disease) Surgical History Surgical History H/O neck surgery History of back surgery History of orthopedic surgery removal of 3 lt ribs History of hysterectomy S/P insertion of iliac artery stent bilateral iliac stents placed Social History Social History Social History: She continues to work part work at a [employer]. She has no children and lives with her mother. She stated she is down to half a pack a cigarettes a day. She does not have a power of deputy commonwealth's attorney for healthcare. Code status: Full code Smoking packs per day: 0.5 Smoking cigarettes per day: 10.0 Years smoked: 45 Smoking pack-years: 22.50 Smoking status: Current every day smoker Tobacco type: cigarettes Alcohol intake: former Substance use: unknown Substance use type: does not use Lack of Transportation: No Lack of Food: Never True Current Housing: I Have Housing Concerned About Future Housing: No Difficulty Paying Gas/Electric Bills: No Difficulty Paying for Meds: No Currently Unemployed: No Education: High School Diploma/GED Difficulty w/ Childcare or Family Care: No Gender identity (if verbalized by the patient): Female Spiritual care concerns: No Meds Home Medications and Allergies Home Medications ?Medication ?Instructions ?Recorded ?Confirmed ?Type atorvastatin 20 mg tablet 20 mg PO HS 06/26/19 04/08/25 History losartan 100 mg tablet 100 mg PO DAILY 04/08/25 04/08/25 History Allergies Allergy/AdvReac Type Severity Reaction Status Date / Time No Known Allergies Allergy Verified 04/09/25 14:08 Vital Signs Vital Signs - 24 hr 04/08/25 16:20 04/08/25 16:39 04/08/25 17:40 Temperature 98.7 F Pulse Rate 109 H 89 98 Respiratory Rate 20 22 H 12 Blood Pressure 113/82 114/87 142/94 H Pulse Oximetry 99 97 100 Oxygen Delivery Room Air Exam Const: General: cooperative, no acute distress and awake Orientation/consciousness: oriented to person, oriented to place, oriented to time and patient oriented x3 Limitations: no limitations HENMT: Head: normal to inspection, No palpable skull fracture present and normocephalic Eyes: General: appearance normal, both eyes and all related structures Alignment and Position: alignment normal Neck: Neck: normal visual inspection and full ROM Chest: Chest palpation & inspection: normal inspection of the chest Resp: Effort & Inspection: normal respiratory effort Auscultation: clear to auscultation bilaterally Percussion: percussion normal Cardio: Palpation: normal PMI Rate: regular rate Rhythm: regular rhythm Heart sounds: S1 normal heart sound present and S2 normal heart sound present Peripheral pulses: Peripheral pulses 2+ throughout GI: Inspection: normal to inspection Percussion: Yes normal to percussion Auscultation: normal bowel sounds Back/Spine/Pelvis: Back: no CVA tenderness Skin: General skin exam: normal color Lesions: no lesions Rashes: no rashes Trauma: no lacerations or abrasions Wounds: no wounds Hair: normal Nails: normal Neuro: General: oriented to person, oriented to place, oriented to time and patient oriented x3 Cranial nerves: Yes Equal, round and reactive pupils present and Yes Normal hearing present Cognition (Neuro): normal cognition Speech: normal speech Motor exam (neuro): 5/5 motor strength present throughout Sensory Exam: normal sensation Extrem: General: normal to inspection Right upper extremity: normal to inspection and shoulder/upper arm Left upper extremity: normal to inspection and shoulder/upper arm Right lower extremity: normal to inspection Left lower extremity: normal to inspection Psych: Appearance: grossly normal Mental Status: mental status grossly normal Speech and movement: Normal speech and movement present Affect: normal affect Attitude: cooperative Thought process: Normal thought process present Thought content: Yes Normal thought content present Insight: Good insight present (Psych) Judgement: Good judgement present (Psych) H&P: Results Labs Labs: Short CBC 04/08/25 Range/Units 16:41 WBC 11.1 H (4.5-10.0) K/mm3 Hgb 17.3 H (12.0-15.0) g/dL Hct 50.7 H (37.0-47.0) % Plt Count 264 (150-375) k/mm3 BMP 04/08/25 16:41 Sodium 136 L Potassium 4.2 Chloride 100 Carbon Dioxide 21 L BUN 17 Creatinine 1.35 H Glucose 102 Calcium 10.4 H Cardiac Enzymes 04/08/25 04/08/25 Range/Units 16:41 19:21 Troponin I 0.753 H* 0.552 H* D (0.000-0.034) ng/mL Liver Function 04/08/25 Range/Units 16:41 Total Bilirubin 1.0 (0.2-1.3) mg/dL AST 32 (14-36) U/L ALT 20 (6-35) U/L Alkaline Phosphatase 126 (38-126) U/L Albumin 5.0 (3.5-5.1) g/dL ECG Interpretation: SINUS RHYTHM POSSIBLE RIGHT ATRIAL ENLARGEMENT POSSIBLE LEFT ATRIAL ENLARGEMENT ANTEROSEPTAL INFARCT, AGE INDETERMINATE PEAKED T WAVES- CONSIDER HYPERKALEMIA PROLONGED QT INTERVAL ABNORMAL ECG Compared to ECG 04/08/2025 16:22:48 HEART RATE HAS DECREASED Electronically Signed On 04-08-2025 18:07:20 CDT by Low CANELA Imaging CT scan - abdomen: Radiologist's impression: ITS Impressions Chest X-Ray 04/08/25 16:55 IMPRESSION: No acute pulmonary findings. Chest/Abdomen/Pelvis CTA 04/08/25 17:48 IMPRESSION: 1. Negative for pulmonary embolism. Probable bilateral bronchopneumonia superimposed on chronic lung disease. There are micronodules detailed above which are probably infectious, underlying neoplasm is not excluded and follow-up is warranted to ensure stability or resolution. 2. No acute intra-abdominal process. Incidental findings above Assessment and Plan Assessment and plan (1) Pneumonia: Code(s): J18.9 - Pneumonia, unspecified organism Status: Acute Assessment and Plan: -CT was read as1. Negative for pulmonary embolism. Probable bilateral bronchopneumonia superimposed on chronic lung disease. There are micronodules detailed above which are probably infectious, underlying neoplasm is not excluded and follow-up is warranted to ensure stability or resolution. 2. No acute intra-abdominal process. Incidental findings above -continue with cefepime, doxycycline, and vancomycin -pending blood and sputum cultures -legionnaires culture -DuoNebs -she is afebrile and has a white count of 11.1. (2) Cardiac enzymes elevated: Code(s): R74.8 - Abnormal levels of other serum enzymes Status: Acute Assessment and Plan: -she denies any chest pain at this time. -continue to trend troponins. First troponin 0.753 and the 3 hour troponin was 0.552 -and echo has been ordered if she has stated that her last echo was over 7 years ago. -after discussion with the patient she stated she does not have any stents in her heart but she has bilateral iliac stents. -EKG was read as SINUS RHYTHM POSSIBLE RIGHT ATRIAL ENLARGEMENT POSSIBLE LEFT ATRIAL ENLARGEMENT ANTEROSEPTAL INFARCT, AGE INDETERMINATE PEAKED T WAVES- CONSIDER HYPERKALEMIA PROLONGED QT INTERVAL ABNORMAL ECG Compared to ECG 04/08/2025 16:22:48 HEART RATE HAS DECREASED Electronically Signed On 04-08-2025 18:07:20 CDT by Low Canela D.O. -cardiology consult -troponins could possibly be elevated due to her acute kidney injury. (3) Acute kidney injury: Code(s): N17.9 - Acute kidney failure, unspecified Status: Acute Assessment and Plan: -she stated that she has had some nausea and vomiting for approximately 2 days and has not been able to keep down any food or liquid. -the patient has a QTC of 580 and it would not be safe to give her Zofran at this time. -continue with IV fluids -monitor daily BMP -hold nephrotoxic medication. (4) HTN (hypertension) with goal to be determined: Code(s): I10 - Essential (primary) hypertension Status: Acute Assessment and Plan: -currently her blood pressure is 144/87. -p.r.n. hydralazine -may continue with amlodipine if blood pressure allows (5) Hyperlipidemia: Code(s): E78.5 - Hyperlipidemia, unspecified Status: Acute Assessment and Plan: -continue with atorvastatin and monitor liver enzymes. (6) Squamous cell carcinoma of lung, stage I: Code(s): C34.90 - Malignant neoplasm of unspecified part of unspecified bronchus or lung Status: Acute Assessment and Plan: -the patient stated that she has completed radiation therapy January of this year. -she has not had any chemotherapy. -she follows with Oncology as well. (7) COPD (chronic obstructive pulmonary disease): Code(s): J44.9 - Chronic obstructive pulmonary disease, unspecified Status: Acute Assessment and Plan: -continue with home inhalers -duo nebulizers Quality VTE Prophylaxis VTE prophylaxis: mechanical ordered
[2025-04-08 20:20] LABS: MRSA (PCR) NOT DETECTED (NOT DETECTE)
[2025-04-08] MEDS: SODIUM CHLORIDE 0.9% IV 1,000 ML 100 ML IV CONT (20:20)
[2025-04-08] MEDS: CEFEPIME 2 GM in SODIUM CHLORIDE 0.9% IV 50 ML 100 ML IVPB (20:20)
[2025-04-08] MEDS: VANCOMYCIN 1,500 MG/NS 500 ML 1,500 MG/500 ML BAG 250 MG IVPB (20:21)
[2025-04-08] MEDS: DOXYCYCLINE IV 100 MG in SODIUM CHLORIDE 0.9% IV 100 ML IVPB (21:15)
[2025-04-08] MEDS: IPRATROPIUM 0.5 MG/ALBUTEROL SULFATE 2.5 MG (BASE) AMPUL.NEB 3 ML INHALATION (21:43)
--- NOTE | 2025-04-08 22:20 | ADMIMU ---
This patient, Moriah Brown, was admitted to IMU status, and placed in IMU Room 232 at 2205. Patient/family oriented to hospital policies and general routines including ID bracelet, bed and alarms, visiting hours, pain management, procedures, bathroom and other care routines, personal items, smoking policy, room service/diet, and visiting hours. Valuables list has been completed. Information on how to activate the Rapid Response Team has been discussed. Patient/Family are encouraged to report perceived risks to care and to ask questions if they do not understand what they are told or what they should do.
[2025-04-08 23:18] LABS: Troponin I 0.433 ng/mL (0.000-0.034)
[2025-04-09] VITALS (24 sets, daily range): BP systolic 119–174; BP diastolic 63–88; PULSE 64–87; RESP 12–29; TEMP 36.5–37.1; O2SAT 92–100; BMI 16.9
[2025-04-09] MEDS: IPRATROPIUM 0.5 MG/ALBUTEROL SULFATE 2.5 MG (BASE) AMPUL.NEB 3 ML INHALATION ×3 (02:20→20:11)
[2025-04-09 03:20] LABS: Hematocrit 41.2 % (37.0-47.0); Hemoglobin 13.6 g/dL (12.0-15.0); Mean Corpuscular HGB Conc 33.0 g/dl (32-36); Mean Corpuscular Hemoglobin 31.1 pg (26-34); Mean Corpuscular Volume 94.3 fl (80-100); Platelet Count Result 181 k/mm3 (150-375); Red Blood Count 4.37 M/mm3 (4.2-5.4); White Blood Count 9.8 K/mm3 (4.5-10.0)
[2025-04-09 03:37] LABS: Anion Gap 8 mmol/L (4-12); Blood Urea Nitrogen 14 mg/dL (7-17); Calcium 7.9 mg/dL (8.4-10.2); Carbon Dioxide 19 mmol/L (22-30); Chloride 111 mmol/L (98-107); Estimated CRCL calculation 41 ml/min; Estimated Glomerular Filt Rate 50; Glucose 75 mg/dL (65-110); Magnesium 2.7 mg/dL (1.6-2.3); Potassium 3.8 mmol/L (3.4-5.0); Sodium 138 mmol/L (137-145)
[2025-04-09] MEDS: SODIUM CHLORIDE 0.9% IV 1,000 ML 100 ML IV CONT ×2 (05:56→20:23)
--- NOTE | 2025-04-09 06:00 | ECHO_ITS ---
Patient Info Name: Moriah Brown Age: 59 years : 1965 Gender: Female Ht: 68 in Wt: 121 lbs BSA: 1.61 m2 HR: 76 bpm BP: 130 / 76 mmHg Technical Quality: Fair Exam Date: 04/09/2025 10:08 AM Patient Status: I Admit Date: 04/08/2025 Exam Type: CA echo doppler color flow Complete two-dimensional, color flow and Doppler transthoracic echocardiogram is performed. Staff Referring Physician: Kirill Tan Airbrush Artist: Neal Jerez III Attending Provider: Kendall Vargas MD Summary 1. Complete two-dimensional, color flow and Doppler transthoracic echocardiogram is performed. 2. The left ventricle is normal in size and systolic function. The left ventricular ejection fraction is visually estimated to be 65-70%. There are no regional wall motion abnormalities. 3. The right ventricle is normal in size and systolic function. 4. Aortic valve leaflets are not well visualized. There was no echocardiographic evidence of hemodynamically significant aortic stenosis. 5. The pericardium is not well visualized. Left Ventricle The left ventricle is normal in size and systolic function. The left ventricular ejection fraction is visually estimated to be 65-70%. There are no regional wall motion abnormalities. Right Ventricle The right ventricle is normal in size and systolic function. Left Atria The left atrium is normal size. Right Atria The right atrium is normal size. Atrial Septum The atrial septum is not well visualized. Aortic Valve Aortic valve leaflets are not well visualized. There was no echocardiographic evidence of hemodynamically significant aortic stenosis. Pulmonic Valve The pulmonic valve is not well visualized. Mitral Valve The mitral valve leaflets are thickened but open well. There is trace mitral regurgitation. Tricuspid Valve The tricuspid valve is normal. There is trace tricuspid regurgitation. Pericardium/Pleural The pericardium is not well visualized. Inferior Vena Cava Normal inferior vena cava with >50% collapse upon inspiration consistent with normal right atrial pressure, 3 mmHg. Aorta The aortic root at the level of sinus of Valsalva measures 2.6 cm in diameter. Left Ventricular Outflow Tract Name Value Normal LVOT 2D LVOT Diameter 1.9 cm LVOT Doppler LVOT Peak Velocity 120 cm/s LVOT Peak Gradient 6 mmHg LVOT Mean Gradient 2 mmHg LVOT VTI 25 cm LVOT VTI/AV VTI Ratio 1.0 LVOT Stroke Volume 68 ml LVOT CO 4.5 l/min LVOT CI 2.8 l/min/m2 Pulmonic Valve Name Value Normal PV Doppler PV Peak Velocity 103 cm/s PV Peak Gradient 4 mmHg PV Mean Gradient 2 mmHg Mitral Valve Name Value Normal MV Doppler MV Peak Gradient 7 mmHg MV Mean Gradient 3 mmHg MV Area (Cont Eq VTI) 1.8 cm2 MV Diastolic Function MV E Peak Velocity 109 cm/s MV A Peak Velocity 92 cm/s MV E/A 1.2 MV Decel Time (PW) 305 ms MV Annular TDI MV E/e' (Septal) 12.9 MV E/e' (Lateral) 14.6 MV E/e' (Average) 13.8 Tricuspid Valve Name Value Normal Estimated PAP/RSVP RA Pressure 3 mmHg <=5 TV Annular TDI TV Lateral Samantha s' Velocity 13.8 cm/s >=9.5 Aortic Valve Name Value Normal AV Doppler AV Peak Velocity 146 cm/s AV Peak Gradient 9 mmHg AV Mean Gradient 3 mmHg AV VTI 25 cm AV Area (Cont Eq VTI) 2.7 cm2 >=3.0 AV Area (Cont Eq Chaitanya) 2.2 cm2 AV DI (Chaitanya) 0.82 AV Regurgitation 2D LVOT Area 2.7 cm2 Ventricles Name Value Normal LV Dimensions 2D/MM IVS Diastolic Thickness (2D) 0.9 cm 0.6-1.0 LVID Diastole (2D) 4.1 cm 3.8-5.2 LVIW Diastolic Thickness (2D) 0.9 cm 0.6-0.9 LVID Systole (2D) 2.7 cm 2.2-3.5 LVOT Diameter 1.9 cm LV Mass (2D Cubed) 113.36 g 67.00-162.00 LV Mass Index (2D Cubed) 70 g/m2 43-95 Relative Wall Thickness (2D) 0.46 <=0.42 LV Fractional Shortening/Ejection Fraction 2D/MM LV Fractional Shortening (2D) 33 % 27-45 LV EF (2D Teichholz) 62 % LV Diastolic Volume (4C MOD) 30 ml LV EF (4C MOD) 69 % LV Diastolic Volume (2C MOD) 32 ml LV EF (2C MOD) 70 % LV Diastolic Volume (BP MOD) 32 ml 46-106 LV Diastolic Volume Index (BP MOD) 20 ml/m2 29-61 LV Systolic Volume (BP MOD) 10 ml 14-42 LV Systolic Volume Index (BP MOD) 6 ml/m2 8-24 LV EF (BP MOD) 69 % 54-74 LV Diastolic Length (4C) 6.1 cm LV Systolic Length (4C) 4.9 cm LV Stroke Volume (4C MOD) 21 ml Atria Name Value Normal LA Dimensions LA Volume (4C A-L) 28 ml LA Volume (BP A-L) 35 ml RA Dimensions RA Systolic Major Sentinel Length (4C) 3.8 cm 2.2-2.8 RA Area (4C) 7.6 cm2 <=18.0 Report Signatures
[2025-04-09] MEDS: FAMOTIDINE 20 MG/2 ML VIAL IV PUSH ×2 (09:44→20:27)
[2025-04-09] MEDS: DOXYCYCLINE IV 100 MG in SODIUM CHLORIDE 0.9% IV 100 ML IVPB ×2 (09:44→21:12)
[2025-04-09] MEDS: CEFEPIME 2 GM in SODIUM CHLORIDE 0.9% IV 50 ML 100 ML IVPB ×2 (09:45→20:28)
--- NOTE | 2025-04-09 11:14 | ECG_ITS ---
Test Date: 2025-04-09 11:54:52 Measurements Intervals [place] Rate: 65 P: 72 WV: 161 QRS: 59 QRSD: 73 T: 67 QT: 505 QTc: 525 Interpretive Statements SINUS RHYTHM POSSIBLE LEFT ATRIAL ENLARGEMENT PROLONGED QT INTERVAL ABNORMAL ECG Compared to ECG 04/08/2025 17:46:06 Myocardial infarct finding no longer present Electronically Signed On 04-09-2025 12:11:31 CDT by Low Mcfarland D.O.
--- NOTE | 2025-04-09 12:53 | P.CONCA_ITS ---
Assessment and Plan Assessment and plan (1) Coronary artery disease: Code(s): I25.10 - Atherosclerotic heart disease of pilot [place] coronary artery without angina pectoris Status: Acute Assessment and Plan: With reported history of coronary artery disease with previous stents. Will obtain records from [facility] for further details. It appears that her coronary artery disease is stable. However, she does have elevated troponin levels with no other clear explanation for troponin leak. Will plan for nuclear stress test to assess for any ischemia. Repeat troponin today. EKG does not show any acute ischemic changes. (2) Cardiac enzymes elevated: Code(s): R74.8 - Abnormal levels of other serum enzymes Status: Acute Assessment and Plan: As above. History of Present Illness History of Present Illness Consult date/time: 04/09/25 12:53 Requesting physician: Lucila Dunbar APRN Consult reason: Other (elevated trop) Reason For Visit: Bronchopneumonia, Type 2 [place], Dehydration Narrative: Moriah Brown is a 59 year old female with COPD, lung cancer status post radiation, coronary artery disease with history of stents 8 years ago at [facility]. She presents to the hospital with shortness of breath and black stools. Cardiology is consulted for elevated troponin. Patient denies chest pain but does state she feels a tight sensation across her chest and has been having leg and foot cramping/pain which were symptoms she experienced prior to having her previous stents placed. She also complains of shortness of breath. At the time of my evaluation she is not having chest discomfort but complains of muscle aches in her thighs. Review of Systems 2 Review of Systems: All systems reviewed & are unremarkable except as noted in HPI and below PMFSH Past Medical History Medical History (Updated 04/09/25 @ 16:16 by PO MarcosN-C) Nausea and vomiting in adult Melena Squamous cell carcinoma of lung, stage I /radiation completed Chronic GERD HTN (hypertension) with goal to be determined Hyperlipidemia Osteoporosis Liver failure Hepatitis C COPD (chronic obstructive pulmonary disease) Surgical History Surgical History H/O neck surgery History of back surgery History of orthopedic surgery removal of 3 lt ribs History of hysterectomy S/P insertion of iliac artery stent bilateral iliac stents placed Social History Social History Social History: She continues to work part work at a local [employer]. She has no children and lives with her mother. She stated she is down to half a pack a cigarettes a day. 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 Code status: Full code Smoking packs per day: 0.5 Smoking cigarettes per day: 10.0 Years smoked: 45 Smoking pack-years: 22.50 Smoking status: Current every day smoker Tobacco type: cigarettes Alcohol intake: former Substance use: unknown Substance use type: does not use Lack of Transportation: No Lack of Food: Never True Current Housing: I Have Housing Concerned About Future Housing: No Difficulty Paying Gas/Electric Bills: No Difficulty Paying for Meds: No Currently Unemployed: No Education: High School Diploma/GED Difficulty w/ Childcare or Family Care: No Gender identity (if verbalized by the patient): Female Spiritual care concerns: No Meds Home Medications and Allergies Home Medications ?Medication ?Instructions ?Recorded ?Confirmed ?Type atorvastatin 20 mg tablet 20 mg PO HS 06/26/19 5 History losartan 100 mg tablet 100 mg PO DAILY 04/08/25 History Allergies Allergy/AdvReac Type Severity Reaction Status Date / Time No Known Allergies Allergy Verified 04/09/25 14:08 Vital Signs Vital Signs - 24 hr 04/08/25 16:20 04/08/25 16:39 04/08/25 17:40 Temperature 37.1 C Pulse Rate 109 H 89 98 Respiratory Rate 20 22 H 12 Blood Pressure 113/82 114/87 142/94 H Pulse Oximetry 99 97 100 Oxygen Delivery Room Air Fraction of Inspired Oxygen 04/08/25 20:14 04/08/25 21:39 04/08/25 21:40 Temperature Pulse Rate 83 68 66 Respiratory Rate 21 H 20 20 Blood Pressure 144/87 H Pulse Oximetry 100 100 Oxygen Delivery Room Air Fraction of Inspired Oxygen 21 04/08/25 21:46 04/08/25 22:05 04/08/25 22:19 Temperature 36.4 C 36.6 C Pulse Rate 70 99 80 Respiratory Rate 20 18 22 H Blood Pressure 166/87 H 163/80 H Pulse Oximetry 99 100 Oxygen Delivery Fraction of Inspired Oxygen 04/09/25 00:00 04/09/25 00:00 04/09/25 02:00 Temperature 36.5 C Pulse Rate 72 67 65 Respiratory Rate 20 Blood Pressure 140/75 Pulse Oximetry 95 Oxygen Delivery Fraction of Inspired Oxygen 04/09/25 02:20 04/09/25 02:30 04/09/25 04:00 Temperature Pulse Rate 65 66 76 Respiratory Rate 20 20 Blood Pressure Pulse Oximetry Oxygen Delivery Fraction of Inspired Oxygen 04/09/25 04:00 04/09/25 06:00 04/09/25 08:00 Temperature 36.6 C 36.5 C Pulse Rate 76 64 73 Respiratory Rate 14 16 Blood Pressure 130/76 148/76 H Pulse Oximetry 97 99 Oxygen Delivery Fraction of Inspired Oxygen 04/09/25 08:00 04/09/25 08:00 04/09/25 08:12 Temperature Pulse Rate 68 71 Respiratory Rate 20 Blood Pressure Pulse Oximetry Oxygen Delivery Room Air Fraction of Inspired Oxygen 04/09/25 08:24 04/09/25 10:00 04/09/25 12:00 Temperature Pulse Rate 74 72 Respiratory Rate 20 Blood Pressure Pulse Oximetry Oxygen Delivery Room Air Fraction of Inspired Oxygen 04/09/25 12:00 04/09/25 12:00 Temperature 36.6 C Pulse Rate 71 76 Respiratory Rate 16 Blood Pressure 159/88 H Pulse Oximetry 100 Oxygen Delivery Fraction of Inspired Oxygen Exam 2 Const: General: comfortable, no acute distress, alert and awake O rientation/consciousness: patient oriented x3 HENMT: Head: normal to inspection Eyes: General: appearance normal, both eyes and all related structures P upils: Equal, round and reactive pupils present Neck: Neck: normal visual inspection, supple and no JVD Carotids: normal carotid upstroke Resp: Effort & Inspection: normal respiratory effort Auscultation: clear to auscultation bilaterally Cardio: Rate: regular rate Rhythm: regular rhythm Heart sounds: S1 normal heart sound present, S2 normal heart sound present and no murmurs GI: Auscultation: normal bowel sounds Skin: General skin exam: normal color Neuro: General: patient oriented x3 Cranial nerves: Yes Equal, round and reactive pupils present Extrem: General: normal to inspection Psych: Appearance: grossly normal Mental Status: mental status grossly normal Results Labs and Meds 04/09/25 03:07 04/09/25 03:07 Lab results: Cardiac Enzymes 04/08/25 04/08/2504/08/25 Range/Units 16:41 16:41 19:21 AST 32 (14-36) U/L Lactate Dehydrogenase Cancelled 218 Troponin I 0.753 H* 0.552 H* D (0.000-0.034) ng/mL 04/08/25 Range/Units 22:37 AST (14-36) U/L Lactate Dehydrogenase Troponin I 0.433 H* D (0.000-0.034) ng/mL Coagulation 04/08/25 Range/Units 16:41 PT 14.2 (11.1-14.7) Seconds APTT 22.7 (22.3-36.8) Seconds CBC 04/08/25 04/09/25 Range/Units 16:41 03:07 WBC 11.1 H 9.8 (4.5-10.0) K/mm3 RBC 5.62 H 4.37 (4.2-5.4) M/mm3 Hgb 17.3 H 13.6 D (12.0-15.0) g/dL Hct 50.7 H 41.2 (37.0-47.0) % Plt Count 264 181 (150-375) k/mm3 Lymph # (Auto) 2.35 (0.9-3.2) K/mm3 [place] # (Auto) 1.0 H (0.1-0.6) K/mm3 Eos # (Auto) 0.0 (0-0.3) K/mm3 Baso # (Auto) 0.1 (0.0-0.1) K/mm3 Comprehensive Metabolic Panel 04/08/25 04/09/25 Range/Units 16:41 03:07 Sodium 136 L 138 (137-145) mmol/L Potassium 4.2 3.8 (3.4-5.0) mmol/L Chloride 100 111 H (98-107) mmol/L Carbon Dioxide 21 L 19 L (22-30) mmol/L BUN 17 14 (7-17) mg/dL Creatinine 1.35 H 1.10 H (0.7-1.0) mg/dL Glucose 102 75 (65-110) mg/dL Calcium 10.4 H 7.9 L (8.4-10.2) mg/dL AST 32 (14-36) U/L ALT 20 (6-35) U/L Alkaline Phosphatase 126 (38-126) U/L Total Protein 8.7 H (6.3-8.2) g/dL Albumin 5.0 (3.5-5.1) g/dL Intake and Output 04/08/25 04/09/25 04/09/25 23:59 07:59 15:59 Intake Total 1100 960 Output Total 400 Balance 1100 960 -400 Intake: IV 1100 960 Sodium Chloride 0.9% IV 1,000 1000 960 ml @ 100 mls/hr IV CONT .Q10H [facility] Rx#:[id number] Cefepime 2 gm In Sodium 50 Chloride 0.9% IV 50 ml @ 100 mls/hr IVPB ONCE STA Rx#: [id number] Magnesium Sulf 2 gm/Water 50Ml 50 2 gm In 50 ml @ 25 mls/hr IVPB ONCE ONE Rx#:[id number] Output: Urine 400 Other: # Unmeasured Voids 1 Patient Weight 04/09/25 23:59 Weight 50.4 kg
--- NOTE | 2025-04-09 13:45 | PC.NURSE ---
Plan for EGD procedure today. Spoke with Tati Chester (cardiology) to see what their plan is for her and whether or not we would proceed with the EGD today. Tati Chester said she would speak with Dr Oscar. Tati Chester called me back and verbally stated on the phone that we would proceed with the EGD with plans for a stress test tomorrow. Consent for EGD is signed. Patient has been updated on the plan. Orders to be put in from cardiology.
[2025-04-09] MEDS: LACTATED RINGERS 1,000 ML 150 ML IV CONT (14:14)
--- NOTE | 2025-04-09 14:27 | WPDANESEPPF ---
Anes - Initial Pre Proc Eval Procedure: Operation Date: 04/09/25 17:00 Proposed Procedures p Esophagogastroduodenoscopy - Vinnie Butt MD Date/Time: 04/09/25 14:27 Surgeon: Kendall Vargas MD Pre Op Diagnosis: Bronchopneumonia, Type 2 [place], Dehydration Patient Data Age: 59 Gender: F Height: 1.73 m Weight: 50.4 kg Last Vital Signs Temp 98.4 F 04/09/25 14:12 Pulse 70 04/09/25 14:12 Resp 18 04/09/25 14:12 BP 174/78 H 04/09/25 14:12 Pulse Ox 99 04/09/25 14:12 O2 Del Method Room Air 04/09/25 14:12 FiO2 21 04/08/25 21:40 Allergies Allergy/AdvReac Type Severity Reaction Status Date / Time No Known Allergies Allergy Verified 04/09/25 14:08 Home Medications ?Medication ?Instructions ?Recorded ?Confirmed ?Type atorvastatin 20 mg tablet 20 mg PO HS 06/26/19 04/08/25 History losartan 100 mg tablet 100 mg PO DAILY 04/08/25 04/08/25 History Laboratory Tests 04/08/25 04/08/25 04/08/25 16:41 16:41 16:41 WBC 11.1 H K/mm3 (4.5-10.0) RBC 5.62 H M/mm3 (4.2-5.4) Hgb 17.3 H g/dL (12.0-15.0) Hct 50.7 H % (37.0-47.0) MCV 90.2 fl (80-100) MCH 30.8 pg (26-34) MCHC 34.1 g/dl (32-36) RDW 13.0 % (11.5-14.5) Plt Count 264 k/mm3 (150-375) MPV 10.3 fl (7.4-10.4) Immature Gran % (Auto) 0.4 % (0-0.5) Neut % (Auto) 68.8 % (45.5-73.1) Lymph % (Auto) 21.2 % (18.3-44.2) [place] % (Auto) 8.7 H % (2.6-8.5) Eos % (Auto) 0.4 % (0-4.4) Baso % (Auto) 0.5 % (0.2-1.2) Lymph # (Auto) 2.35 K/mm3 (0.9-3.2) [place] # (Auto) 1.0 H K/mm3 (0.1-0.6) Eos # (Auto) 0.0 K/mm3 (0-0.3) Baso # (Auto) 0.1 K/mm3 (0.0-0.1) Abs Immat Gran (auto) 0.04 H K/mm3 (0.00-0.031) Absolute Neuts (auto) 7.6 H K/mm3 (1.3-6.7) Absolute Nucleated RBC 0.000 K/mm3 (0.0-0.012) Nucleated RBC % 0.0 % (0.0-0.2) PT 14.2 Seconds (11.1-14.7) INR 1.1 APTT 22.7 Seconds (22.3-36.8) Sodium 136 L mmol/L (137-145) Potassium 4.2 mmol/L (3.4-5.0) Chloride 100 mmol/L (98-107) Carbon Dioxide 21 L mmol/L (22-30) Anion Gap 15 H mmol/L (4-12) BUN 17 mg/dL (7-17) Creatinine 1.35 H mg/dL (0.7-1.0) Estim Creat Clear Calc Not Reportable Estimated GFR 40 L (59 - ) Glucose 102 mg/dL (65-110) Lactic Acid 1.7 mmol/L (0.7-2.0) Uric Acid Cancelled 4.4 mg/dL (2.5-7.5) Calcium 10.4 H mg/dL (8.4-10.2) Magnesium Total Bilirubin 1.0 mg/dL (0.2-1.3) AST 32 U/L (14-36) ALT 20 U/L (6-35) Alkaline Phosphatase 126 U/L (38-126) Lactate Dehydrogenase Cancelled 218 U/L (120-246) Troponin I 0.753 H* ng/mL (0.000-0.034) NT-Pro-B Natriuret Pep 4910 H pg/mL (19.9-100) Total Protein Albumin Lipase Nasal MRSA (PCR) 04/08/25 04/08/25 04/08/25 16:41 19:06 19:21 WBC RBC Hgb Hct MCV MCH MCHC RDW Plt Count MPV Immature Gran % (Auto) Neut % (Auto) Lymph % (Auto) [place] % (Auto) Eos % (Auto) Baso % (Auto) Lymph # (Auto) [place] # (Auto) Eos # (Auto) Baso # (Auto) Abs Immat Gran (auto) Absolute Neuts (auto) Absolute Nucleated RBC Nucleated RBC % PT INR APTT Sodium Potassium Chloride Carbon Dioxide Anion Gap BUN Creatinine Estim Creat Clear Calc Estimated GFR Glucose Lactic Acid Uric Acid Calcium Magnesium Total Bilirubin AST ALT Alkaline Phosphatase Lactate Dehydrogenase Troponin I 0.552 H* D ng/mL (0.000-0.034) NT-Pro-B Natriuret Pep Cancelled Total Protein 8.7 H g/dL (6.3-8.2) Albumin 5.0 g/dL (3.5-5.1) Lipase 115 U/L (23-300) Nasal MRSA (PCR) Not detected (NOT DETECTE) 04/08/25 04/09/25 04/09/25 22:37 03:07 13:55 WBC 9.8 K/mm3 (4.5-10.0) RBC 4.37 M/mm3 (4.2-5.4) Hgb 13.6 D g/dL (12.0-15.0) Hct 41.2 % (37.0-47.0) MCV 94.3 fl (80-100) MCH 31.1 pg (26-34) MCHC 33.0 g/dl (32-36) RDW 13.1 % (11.5-14.5) Plt Count 181 k/mm3 (150-375) MPV 10.1 fl (7.4-10.4) Immature Gran % (Auto) Neut % (Auto) Lymph % (Auto) [place] % (Auto) Eos % (Auto) Baso % (Auto) Lymph # (Auto) [place] # (Auto) Eos # (Auto) Baso # (Auto) Abs Immat Gran (auto) Absolute Neuts (auto) Absolute Nucleated RBC Nucleated RBC % PT INR APTT Sodium 138 mmol/L (137-145) Potassium 3.8 mmol/L (3.4-5.0) Chloride 111 H mmol/L (98-107) Carbon Dioxide 19 L mmol/L (22-30) Anion Gap 8 mmol/L (4-12) BUN 14 mg/dL (7-17) Creatinine 1.10 H mg/dL (0.7-1.0) Estim Creat Clear Calc 41 ml/min Estimated GFR 50 L (59 - ) Glucose 75 mg/dL (65-110) Lactic Acid Uric Acid Calcium 7.9 L mg/dL (8.4-10.2) Magnesium 2.7 H mg/dL (1.6-2.3) Total Bilirubin AST ALT Alkaline Phosphatase Lactate Dehydrogenase Troponin I 0.433 H* D ng/mL Pending (0.000-0.034) NT-Pro-B Natriuret Pep Total Protein Albumin Lipase Nasal MRSA (PCR) Patient hx anesthesia problems: none Family hx anesthesia problems: none Results Review: All pre-operative results and documents have been reviewed as part of the pre-operative evaluation. [facility] Past Medical History Medical History (Updated 04/10/25 @ 07:22 by Vinnie Butt MD) Gastric ulceration Nausea and vomiting in adult Melena Squamous cell carcinoma of lung, stage I /radiation completed Chronic GERD HTN (hypertension) with goal to be determined Hyperlipidemia Osteoporosis Liver failure Hepatitis C COPD (chronic obstructive pulmonary disease) Surgical History Surgical History H/O neck surgery History of back surgery History of orthopedic surgery removal of 3 lt ribs History of hysterectomy S/P insertion of iliac artery stent bilateral iliac stents placed Social History Social History Social History: She continues to work part work at a [employer]. She has no children and lives with her mother. She stated she is down to half a pack a cigarettes a day. She does not have a power of ip attorney for healthcare. Code status: Full code Smoking packs per day: 0.5 Smoking cigarettes per day: 10.0 Years smoked: 45 Smoking pack-years: 22.50 Smoking status: Current every day smoker Tobacco type: cigarettes Alcohol intake: former Substance use: unknown Substance use type: does not use Lack of Transportation: No Lack of Food: Never True Current Housing: I Have Housing Concerned About Future Housing: No Difficulty Paying Gas/Electric Bills: No Difficulty Paying for Meds: No Currently Unemployed: No Education: High School Diploma/GED Difficulty w/ Childcare or Family Care: No Gender identity (if verbalized by the patient): Female Spiritual care concerns: No Anes - Eval Final PreProcedure Day of Procedure 04/09/25 14:27 Patient weight: normal Heart: regular rate and rhythm Lungs: clear to auscultation Airway: Mallampati scale class II Neurological: alert and oriented Last oral intake: >/= 8 hours ASA classification: IV Emergent: no Anesthetic plan: proceed Anesthesia type and monitoring: general GIVS and standard monitoring Results Review: All pre-operative results and documents have been reviewed as part of the pre-operative evaluation. Informed Consent: The patient's anesthetic plan and its attendant risks and benefits were discussed with the patient/family/POA. Questions were solicited and answers provided to the satisfaction of the patient/family/POA.
[2025-04-09 14:46] LABS: Troponin I 0.182 ng/mL (0.000-0.034)
--- NOTE | 2025-04-09 14:59 | WPDGICN ---
Assessment and Plan Assessment and plan (1) Melena: Code(s): K92.1 - Melena Status: Acute Assessment and Plan: had drop in h/h today will proceed with egd today to assess if ulcer, esophagitis, etc start ppi (2) Acute kidney injury: Code(s): N17.9 - Acute kidney failure, unspecified Status: Acute Assessment and Plan: on fluids (3) Acute dehydration: Code(s): E86.0 - Dehydration Status: Acute Assessment and Plan: treated (4) Pneumonia: Code(s): J18.9 - Pneumonia, unspecified organism Status: Acute Assessment and Plan: on abx (5) COPD (chronic obstructive pulmonary disease): Code(s): J44.9 - Chronic obstructive pulmonary disease, unspecified Status: Acute (6) Squamous cell carcinoma of lung, stage I: Code(s): C34.90 - Malignant neoplasm of unspecified part of unspecified bronchus or lung Status: Acute (7) Nausea and vomiting in adult: Code(s): R11.2 - Nausea with vomiting, unspecified Status: Acute Assessment and Plan: better antiemetics GI Consult Note Consult date/time: 04/09/25 14:59 Reason for consult: melena HPI: Moriah Brown is a 59 year old female with stage I lung cancer with completed radiation treatment, tobacco abuse, and COPD. She presented to the emergency department today with nausea and vomiting with black tarry stools and shortness of breath. She denies previous history of GIB, no ulcers and is not taking nsaid's, never had EGD, had colonoscopy more than 5 years ago. She stated that she completed radiation treatment approximately January of this year. ER labs white count was noted to be 11.1. H and H is 17.3 and 50.7. BUN is 17 with a creatinine of 1.35. GFR is 40. The initial troponin was found to be 0.753. Chest abdomen pelvis CTA was read as the followingNegative for pulmonary embolism. Probable bilateral bronchopneumonia superimposed on chronic lung disease. There are micronodules detailed above which are probably infectious, underlying neoplasm is not excluded and follow-up is warranted to ensure stability or resolution. No acute intra-abdominal process. Started on iv abx and admitted to hospital, also had abdominal pain, no more nausea. Evaluated by salesperson sheet music. Review of Systems Constitutional: Constitutional: Denies chills Eyes: Eyes: Denies blurry vision ENT: Reports Normal hearing present Cardiovascular: Cardiovascular: Denies chest pain Respiratory: Respiratory: Reports dyspnea Gastrointestinal: Gastrointestinal: Reports abdominal pain, Reports melena and Reports nausea Genitourinary: Genitourinary: Denies hematuria Musculoskeletal: Musculoskeletal: Denies neck pain Integumentary/Breasts: Skin/Breast: Denies skin pain Neurologic: Denies Abnormal speech present Psychiatric: Psychiatric: Denies behavioral changes [facility] Past Medical History Medical History (Updated 04/09/25 @ 15:13 by Vinnie Butt MD) Nausea and vomiting in adult Melena Squamous cell carcinoma of lung, stage I /radiation completed Chronic GERD HTN (hypertension) with goal to be determined Hyperlipidemia Osteoporosis Liver failure Hepatitis C COPD (chronic obstructive pulmonary disease) Surgical History Surgical History H/O neck surgery History of back surgery History of orthopedic surgery removal of 3 lt ribs History of hysterectomy S/P insertion of iliac artery stent bilateral iliac stents placed Social History Social History Social History: She continues to work part work at a local [employer]. She has no children and lives with her mother. She stated she is down to half a pack a cigarettes a day. She does not have a power of deputy county attorney for healthcare. Code status: Full code Smoking packs per day: 0.5 Smoking cigarettes per day: 10.0 Years smoked: 45 Smoking pack-years: 22.50 Smoking status: Current every day smoker Tobacco type: cigarettes Alcohol intake: former Substance use: unknown Substance use type: does not use Lack of Transportation: No Lack of Food: Never True Current Housing: I Have Housing Concerned About Future Housing: No Difficulty Paying Gas/Electric Bills: No Difficulty Paying for Meds: No Currently Unemployed: No Education: High School Diploma/GED Difficulty w/ Childcare or Family Care: No Gender identity (if verbalized by the patient): Female Spiritual care concerns: No Meds Home Medications and Allergies Home Medications ?Medication ?Instructions ?Recorded ?Confirmed ?Type atorvastatin 20 mg tablet 20 mg PO HS 06/26/19 04/08/25 History losartan 100 mg tablet 100 mg PO DAILY 04/08/25 04/08/25 History Allergies Allergy/AdvReac Type Severity Reaction Status Date / Time No Known Allergies Allergy Verified 04/09/25 14:08 Vital Signs Vital Signs - 24 hr 04/08/25 16:20 04/08/25 16:39 04/08/25 17:40 Temperature 98.7 F Pulse Rate 109 H 89 98 Respiratory Rate 20 22 H 12 Blood Pressure 113/82 114/87 142/94 H Pulse Oximetry 99 97 100 Oxygen Delivery Room Air Fraction of Inspired Oxygen 04/08/25 20:14 04/08/25 21:39 04/08/25 21:40 Temperature Pulse Rate 83 68 66 Respiratory Rate 21 H 20 20 Blood Pressure 144/87 H Pulse Oximetry 100 100 Oxygen Delivery Room Air Fraction of Inspired Oxygen 21 04/08/25 21:46 04/08/25 22:05 04/08/25 22:19 Temperature 97.6 F 97.8 F Pulse Rate 70 99 80 Respiratory Rate 20 18 22 H Blood Pressure 166/87 H 163/80 H Pulse Oximetry 99 100 Oxygen Delivery Fraction of Inspired Oxygen 04/09/25 00:00 04/09/25 00:00 04/09/25 02:00 Temperature 97.7 F Pulse Rate 72 67 65 Respiratory Rate 20 Blood Pressure 140/75 Pulse Oximetry 95 Oxygen Delivery Fraction of Inspired Oxygen 04/09/25 02:20 04/09/25 02:30 04/09/25 04:00 Temperature Pulse Rate 65 66 76 Respiratory Rate 20 20 Blood Pressure Pulse Oximetry Oxygen Delivery Fraction of Inspired Oxygen 04/09/25 04:00 04/09/25 06:00 04/09/25 08:00 Temperature 97.9 F 97.7 F Pulse Rate 76 64 73 Respiratory Rate 14 16 Blood Pressure 130/76 148/76 H Pulse Oximetry 97 99 Oxygen Delivery Fraction of Inspired Oxygen 04/09/25 08:00 04/09/25 08:00 04/09/25 08:12 Temperature Pulse Rate 68 71 Respiratory Rate 20 Blood Pressure Pulse Oximetry Oxygen Delivery Room Air Fraction of Inspired Oxygen 04/09/25 08:24 04/09/25 10:00 04/09/25 12:00 Temperature Pulse Rate 74 72 Respiratory Rate 20 Blood Pressure Pulse Oximetry Oxygen Delivery Room Air Fraction of Inspired Oxygen 04/09/25 12:00 04/09/25 12:00 04/09/25 13:55 Temperature 97.8 F Pulse Rate 71 76 76 Respiratory Rate 16 Blood Pressure 159/88 H Pulse Oximetry 100 Oxygen Delivery Fraction of Inspired Oxygen 04/09/25 14:12 Temperature 98.4 F Pulse Rate 70 Respiratory Rate 18 Blood Pressure 174/78 H Pulse Oximetry 99 Oxygen Delivery Room Air Fraction of Inspired Oxygen Exam Const: General: comfortable and no acute distress HENMT: Face/Nose/Sinus: Normal nares present Eyes: General: appearance normal, both eyes and all related structures Neck: Neck: supple Resp: Auscultation: clear to auscultation bilaterally Cardio: Rate: regular rate Rhythm: regular rhythm GI: Inspection: non-distended GI Palp: Yes Soft to palpation and No Guarding due to palpation present (GI) Auscultation: normal bowel sounds Skin: General skin exam: normal color Neuro: Speech: normal speech Motor exam (neuro): 5/5 motor strength present throughout Extrem: General: normal to inspection Psych: Mental Status: mental status grossly normal Results Labs 04/09/25 03:07 04/09/25 03:07 Labs: Short CBC 04/08/25 04/09/25 Range/Units 16:41 03:07 WBC 11.1 H 9.8 (4.5-10.0) K/mm3 Hgb 17.3 H 13.6 D (12.0-15.0) g/dL Hct 50.7 H 41.2 (37.0-47.0) % Plt Count 264 181 (150-375) k/mm3 BMP 04/08/25 04/09/25 16:41 03:07 Sodium 136 L 138 Potassium 4.2 3.8 Chloride 100 111 H Carbon Dioxide 21 L 19 L BUN 17 14 Creatinine 1.35 H 1.10 H Glucose 102 75 Calcium 10.4 H 7.9 L Cardiac Enzymes 04/08/25 04/08/25 04/08/25 Range/Units 16:41 19:21 22:37 Troponin I 0.753 H* 0.552 H* D 0.433 H* D (0.000-0.034) ng/mL 04/09/25 Range/Units 13:55 Troponin I 0.182 H* (0.000-0.034) ng/mL Liver Function 04/08/25 Range/Units 16:41 Total Bilirubin 1.0 (0.2-1.3) mg/dL AST 32 (14-36) U/L ALT 20 (6-35) U/L Alkaline Phosphatase 126 (38-126) U/L Albumin 5.0 (3.5-5.1) g/dL
--- NOTE | 2025-04-09 15:05 | S_PTH ---
PATIENT: Moriah Brown LOC: [id number] U#:[id number] AGE/SX: 59/F ROOM: 311 RE04/08/[address]: Dimas Middleton MD : [id number] BED: 01 DIS: 04/12/2025 SPEC #: [id number] RECD: 04/10/25 07:59 STATUS: KAIDEN REHanh #: [id number] ANA MARIA: 04/09/25 15:[address]: Vinnie Butt DEPT: [facility] RECD BY: Carrie Alonso ENTERED: 04/10/25 07:59 SP TYPE: Surgical OTHR DR: MD Huang Amezcua MD [employer] PHYSICIAN Kenji Angulo MD Tissues: A - Gastric Biopsy Procedures: Hematoxylin and Eosin Stain Gross and Microscopic Level 4
[2025-04-09 16:08] LABS: HPYLORIRESULT Negative (Negative)
[2025-04-09] MEDS: ACETAMINOPHEN 325 MG TABLET 650 MG PO (16:14)
--- NOTE | 2025-04-09 16:49 | P.PNIM_ITS ---
Progress Note: A&P Assessment and Plan (1) Pneumonia: Code(s): J18.9 - Pneumonia, unspecified organism Status: Acute Assessment and Plan: -CT was read as1. Negative for pulmonary embolism. Probable bilateral br onchopneumonia superimposed on chronic lung disease. There are micronodules detailed above which are probably infectious, underlying neoplasm is not excluded and follow-up is warranted to ensure stability or resolution. 2. No acute intra-abdominal process. Incidental findings above -continue with cefepime, doxycycline, and vancomycin -pending blood and sputum cultures -legionnaires culture -DuoNebs -she is afebrile and has a white count of 11.1. (2) Cardiac enzymes elevated: Code(s): R74.8 - Abnormal levels of other serum enzymes Status: Acute Assessment and Plan: -she denies any chest pain at this time. -continue to trend troponins. First troponin 0.753 and the 3 hour troponin was 0.552 -and echo has been ordered if she has stated that her last echo was over 7 years ago. -after discussion with the patient she stated she does not have any stents in her heart but she has bilateral iliac stents. -EKG was read as SINUS RHYTHM POSSIBLE RIGHT ATRIAL ENLARGEMENT POSSIBLE LEFT ATRIAL ENLARGEMENT ANTEROSEPTAL INFARCT, AGE INDETERMINATE PEAKED T WAVES- CONSIDER HYPERKALEMIA PROLONGED QT INTERVAL ABNORMAL ECG Compared to ECG 04/08/2025 16:22:48 HEART RATE HAS DECREASED Electronically Signed On 04-08-2025 18:07:20 CDT by Low Mcfarland D.O. -cardiology consult -troponins could possibly be elevated due to her acute kidney injury. (3) Acute kidney injury: Code(s): N17.9 - Acute kidney failure, unspecified Status: Acute Assessment and Plan: -she stated that she has had some nausea and vomiting for approximately 2 days and has not been able to keep down any food or liquid. -the patient has a QTC of 580 and it would not be safe to give her Zofran at this time. -continue with IV fluids -monitor daily BMP -hold nephrotoxic medication. (4) HTN (hypertension) with goal to be determined: Code(s): I10 - Essential (primary) hypertension Status: Acute Assessment and Plan: -currently her blood pressure is 144/87. -p.r.n. hydralazine -may continue with amlodipine if blood pressure allows (5) Hyperlipidemia: Code(s): E78.5 - Hyperlipidemia, unspecified Status: Acute Assessment and Plan: -continue with atorvastatin and monitor liver enzymes. (6) Squamous cell carcinoma of lung, stage I: Code(s): C34.90 - Malignant neoplasm of unspecified part of unspecified bronchus or lung Status: Acute Assessment and Plan: -the patient stated that she has completed radiation therapy January of this year. -she has not had any chemotherapy. -she follows with Oncology as well. (7) COPD (chronic obstructive pulmonary disease): Code(s): J44.9 - Chronic obstructive pulmonary disease, unspecified Status: Acute Assessment and Plan: -continue with home inhalers -duo nebulizers Plan Patient with abdominal pain, N/V was seen by GI and EGD today, there was not acute bleeding however did show gastritis concerning for bleeding, GI suspect 2/2 stress as patient denies taking any NSAIDs patient stats pain is persisting, patient is being treated with PPI, patient which chronic respiratory failure 2/2 stage I lung cancer with completed radiation treatment, tobacco abuse, and COPD, CTA of the chest showed bilateral bronchopneumonia superimposed on chronic lung disease. patient is being treated with Cefepime, doxycycline, and duo neb, will monitor Subjective Date/time seen: 04/09/25 16:49 Interval history: Shortness of breath H&P-Narrative: This is a 59-year-old female patient who has stage I lung cancer with completed radiation treatment, tobacco abuse, and COPD. She presented to the emergency department today with nausea and vomiting with black tarry stools and shortness of breath. She stated that this has been ongoing for approximately 2 days. She is not on any blood thinners and has had no change in her medication. She stated that she completed radiation treatment approximately January of this year. Today she had a large bowel movement that was dark and tarry. She has been short of breath for 2 days but denies any chest pressure. Her white count was noted to be 11.1. H and H is 17.3 and 50.7. Her sodium is 136 today and she has an anion gap of 15. BUN is 17 with a creatinine of 1.35. GFR is 40. The initial troponin was found to be 0.753 with a 3 hour troponin of 0.552. Chest x-ray was read as no acute cardiopulmonary findings. Chest abdomen pelvis CTA was read as the followingNegative for pulmonary embolism. Probable bilateral bronchopneumonia superimposed on chronic lung disease. There are micronodules detailed above which are probably infectious, underlying neoplasm is not excluded and follow-up is warranted to ensure stability or resolution. 2. No acute intra-abdominal process. Incidental findings above. She was started on vancomycin, cefepime, magnesium, and normal saline in the emergency room. EKG was read as SINUS RHYTHM Patient with abdominal pain, N/V was seen by GI and EGD today, there was not acute bleeding however did show gastritis concerning for bleeding, GI suspect 2/2 stress as patient denies taking any NSAIDs patient stats pain is persisting, patient is being treated with PPI, patient which chronic respiratory failure 2/2 stage I lung cancer with completed radiation treatment, tobacco abuse, and COPD, CTA of the chest showed bilateral bronchopneumonia superimposed on chronic lung disease. patient is being treated with Cefepime, doxycycline, and duo neb, will monitor Objective Data Vital Signs Vital Signs: Vital Signs - 24 hr 04/08/25 17:40 04/08/25 20:14 04/08/25 21:39 Temperature Pulse Rate 98 83 68 Respiratory Rate 12 21 H 20 Blood Pressure 142/94 H 144/87 H Pulse Oximetry 100 100 Oxygen Delivery Fraction of Inspired Oxygen 04/08/25 21:40 04/08/25 21:46 04/08/25 22:05 Temperature 36.4 C Pulse Rate 66 70 99 Respiratory Rate 20 20 18 Blood Pressure 166/87 H Pulse Oximetry 100 99 Oxygen Delivery Room Air Fraction of Inspired Oxygen 21 04/08/25 22:19 04/09/25 00:00 04/09/25 00:00 Temperature 36.6 C 36.5 C Pulse Rate 80 72 67 Respiratory Rate 22 H 20 Blood Pressure 163/80 H 140/75 Pulse Oximetry 100 95 Oxygen Delivery Fraction of Inspired Oxygen 04/09/25 02:00 04/09/25 02:20 04/09/25 02:30 Temperature Pulse Rate 65 65 66 Respiratory Rate 20 20 Blood Pressure Pulse Oximetry Oxygen Delivery Fraction of Inspired Oxygen 04/09/25 04:00 04/09/25 04:00 04/09/25 06:00 Temperature 36.6 C Pulse Rate 76 76 64 Respiratory Rate 14 Blood Pressure 130/76 Pulse Oximetry 97 Oxygen Delivery Fraction of Inspired Oxygen 04/09/25 08:00 04/09/25 08:00 04/09/25 08:00 Temperature 36.5 C Pulse Rate 73 68 Respiratory Rate 16 Blood Pressure 148/76 H Pulse Oximetry 99 Oxygen Delivery Room Air Fraction of Inspired Oxygen 04/09/25 08:12 04/09/25 08:24 04/09/25 10:00 Temperature Pulse Rate 71 74 72 Respiratory Rate 20 20 Blood Pressure Pulse Oximetry Oxygen Delivery Fraction of Inspired Oxygen 04/09/25 12:00 04/09/25 12:00 04/09/25 12:00 Temperature 36.6 C Pulse Rate 71 76 Respiratory Rate 16 Blood Pressure 159/88 H Pulse Oximetry 100 Oxygen Delivery Room Air Fraction of Inspired Oxygen 04/09/25 13:55 04/09/25 14:12 04/09/25 15:06 Temperature 36.9 C Pulse Rate 76 70 86 Respiratory Rate 18 20 Blood Pressure 174/78 H 119/75 Pulse Oximetry 99 92 Oxygen Delivery Room Air Room Air Fraction of Inspired Oxygen 04/09/25 15:16 04/09/25 15:26 04/09/25 16:00 Temperature Pulse Rate 71 77 Respiratory Rate 29 H 29 H Blood Pressure 124/74 140/85 Pulse Oximetry 98 100 Oxygen Delivery Room Air Room Air Room Air Fraction of Inspired Oxygen 04/09/25 16:00 04/09/25 16:00 Temperature 37.1 C Pulse Rate 87 81 Respiratory Rate 12 Blood Pressure 173/78 H Pulse Oximetry 98 Oxygen Delivery Fraction of Inspired Oxygen Intake/Output Intake/Output: Intake & Output 04/06/25 04/07/25 04/08/25 04/09/25 23:59 23:59 23:59 23:59 Intake Total 1100 1010 Output Total 400 Balance 1100 610 Meds/Results Medications: Active Medications Generic Name Dose Route Start Last Admin Trade Name Freq PRN Reason Stop Dose Admin Acetaminophen 650 mg 04/08/25 18:42 04/09/25 16:14 Acetaminophen 325 Mg Tablet PO 650 mg Q4H PRN Administration Mild Pain (1-3) or Fever Albuterol/Ipratropium 3 ml 04/09/25 02:00 04/09/25 14:37 Ipratropium 0.5 Mg/Albuterol Sulfate 2.5 Mg (Base) Ampul.Neb 3 Ml INHALATION Not Given Q6HRT TERRENCE Atorvastatin Calcium 20 mg 04/09/25 21:00 Atorvastatin 20 Mg Tablet PO HS TERRENCE Famotidine 20 mg 04/09/25 09:00 04/09/25 09:44 Famotidine 20 Mg/2 Ml Vial IV PUSH 20 mg Q12HR TERRENCE Administration Hydralazine HCl 10 mg 04/08/25 21:07 Hydralazine Hcl 20 Mg/Ml Vial IV PUSH Q8H PRN Blood Pressure - High Sodium Chloride 1,000 mls @ 100 mls/hr 04/08/25 18:45 04/09/25 05:56 Normal Saline Iv IV CONT 100 mls/hr .Q10H TERRENCE Administration Cefepime HCl 2 gm/ Sodium 50 mls @ 100 mls/hr 04/09/25 09:00 04/09/25 09:45 Chloride IVPB 100 mls/hr Q12HR TERRENCE Administration Doxycycline Hyclate 100 mg/ 100 mls @ 100 mls/hr 04/09/25 09:00 04/09/25 09:44 Sodium Chloride IVPB 04/13/25 09:59 100 mls/hr Q12H TERRENCE Administration Lactated Ringer's 1,000 mls @ 150 mls/hr 04/09/25 14:15 04/09/25 15:33 Lr - Lactated Ringers Iv IV CONT Infused .Q6H40M TERRENCE Infusion Pantoprazole Sodium 40 mg 04/09/25 21:00 Pantoprazole 40 Mg Tablet PO Q12HR TERRENCE Perflutren Lipid Microsphere 0 ml 04/08/25 18:42 Perflutren Lipid Microspheres 1.5 Ml Vial Diluted To 10 Ml Total Volume IV PUSH 04/11/25 18:42 ONCE PRN adequate visualization Protocol Radiology Results: ITS Impressions Chest X-Ray 04/08/25 16:55 IMPRESSION: No acute pulmonary findings. Chest/Abdomen/Pelvis CTA 04/08/25 17:48 IMPRESSION: 1. Negative for pulmonary embolism. Probable bilateral bronchopneumonia superimposed on chronic lung disease. There are micronodules detailed above which are probably infectious, underlying neoplasm is not excluded and follow-up is warranted to ensure stability or resolution. 2. No acute intra-abdominal process. Incidental findings above Labs Labs: Laboratory Results - last 24 hr 04/08/25 04/08/25 04/08/25 16:41 16:41 16:41 WBC 11.1 H RBC 5.62 H Hgb 17.3 H Hct 50.7 H MCV 90.2 MCH 30.8 MCHC 34.1 RDW 13.0 Plt Count 264 MPV 10.3 Immature Gran % (Auto) 0.4 Neut % (Auto) 68.8 Lymph % (Auto) 21.2 [place] % (Auto) 8.7 H Eos % (Auto) 0.4 Baso % (Auto) 0.5 Lymph # (Auto) 2.35 [place] # (Auto) 1.0 H Eos # (Auto) 0.0 Baso # (Auto) 0.1 Abs Immat Gran (auto) 0.04 H Absolute Neuts (auto) 7.6 H Absolute Nucleated RBC 0.000 Nucleated RBC % 0.0 PT 14.2 INR 1.1 APTT 22.7 Sodium 136 L Potassium 4.2 Chloride 100 Carbon Dioxide 21 L Anion Gap 15 H BUN 17 Creatinine 1.35 H Estim Creat Clear Calc Not Reportable Estimated GFR 40 L Glucose 102 Lactic Acid 1.7 Uric Acid Cancelled 4.4 Calcium 10.4 H Magnesium Total Bilirubin 1.0 AST 32 ALT 20 Alkaline Phosphatase 126 Lactate Dehydrogenase Cancelled 218 Troponin I 0.753 H* NT-Pro-B Natriuret Pep 4910 H Total Protein Albumin Lipase Nasal MRSA (PCR) POC H. pylori Urease 04/08/25 04/08/25 04/08/25 16:41 19:06 19:21 WBC RBC Hgb Hct MCV MCH MCHC RDW Plt Count MPV Immature Gran % (Auto) Neut % (Auto) Lymph % (Auto) [place] % (Auto) Eos % (Auto) Baso % (Auto) Lymph # (Auto) [place] # (Auto) Eos # (Auto) Baso # (Auto) Abs Immat Gran (auto) Absolute Neuts (auto) Absolute Nucleated RBC Nucleated RBC % PT INR APTT Sodium Potassium Chloride Carbon Dioxide Anion Gap BUN Creatinine Estim Creat Clear Calc Estimated GFR Glucose Lactic Acid Uric Acid Calcium Magnesium Total Bilirubin AST ALT Alkaline Phosphatase Lactate Dehydrogenase Troponin I 0.552 H* D NT-Pro-B Natriuret Pep Cancelled Total Protein 8.7 H Albumin 5.0 Lipase 115 Nasal MRSA (PCR) Not detected POC H. pylori Urease 04/08/25 04/09/25 04/09/25 22:37 03:07 13:55 WBC 9.8 RBC 4.37 Hgb 13.6 D Hct 41.2 MCV 94.3 MCH 31.1 MCHC 33.0 RDW 13.1 Plt Count 181 MPV 10.1 Immature Gran % (Auto) Neut % (Auto) Lymph % (Auto) [place] % (Auto) Eos % (Auto) Baso % (Auto) Lymph # (Auto) [place] # (Auto) Eos # (Auto) Baso # (Auto) Abs Immat Gran (auto) Absolute Neuts (auto) Absolute Nucleated RBC Nucleated RBC % PT INR APTT Sodium 138 Potassium 3.8 Chloride 111 H Carbon Dioxide 19 L Anion Gap 8 BUN 14 Creatinine 1.10 H Estim Creat Clear Calc 41 Estimated GFR 50 L Glucose 75 Lactic Acid Uric Acid Calcium 7.9 L Magnesium 2.7 H Total Bilirubin AST ALT Alkaline Phosphatase Lactate Dehydrogenase Troponin I 0.433 H* D 0.182 H* NT-Pro-B Natriuret Pep Total Protein Albumin Lipase Nasal MRSA (PCR) POC H. pylori Urease 04/09/25 16:05 WBC RBC Hgb Hct MCV MCH MCHC RDW Plt Count MPV Immature Gran % (Auto) Neut % (Auto) Lymph % (Auto) [place] % (Auto) Eos % (Auto) Baso % (Auto) Lymph # (Auto) [place] # (Auto) Eos # (Auto) Baso # (Auto) Abs Immat Gran (auto) Absolute Neuts (auto) Absolute Nucleated RBC Nucleated RBC % PT INR APTT Sodium Potassium Chloride Carbon Dioxide Anion Gap BUN Creatinine Estim Creat Clear Calc Estimated GFR Glucose Lactic Acid Uric Acid Calcium Magnesium Total Bilirubin AST ALT Alkaline Phosphatase Lactate Dehydrogenase Troponin I NT-Pro-B Natriuret Pep Total Protein Albumin Lipase Nasal MRSA (PCR) POC H. pylori Urease Negative
[2025-04-09] MEDS: ATORVASTATIN 20 MG TABLET PO (20:26)
[2025-04-09] MEDS: PANTOPRAZOLE 40 MG TABLET PO (20:27)
[2025-04-10] VITALS (39 sets, daily range): BP systolic 123–186; BP diastolic 72–96; PULSE 62–98; RESP 14–21; TEMP 36.5–36.9; O2SAT 97–100
[2025-04-10] MEDS: SODIUM CHLORIDE 0.9% IV 1,000 ML 100 ML IV CONT (00:49)
[2025-04-10] MEDS: IPRATROPIUM 0.5 MG/ALBUTEROL SULFATE 2.5 MG (BASE) AMPUL.NEB 3 ML INHALATION ×3 (02:06→21:30)
--- NOTE | 2025-04-10 07:21 | WPDGIPROGNO ---
Progress Note: A&P Assessment and Plan (1) Melena: Code(s): K92.1 - Melena Status: Acute Assessment and Plan: no more bleeding noted ulcerative gastritis continue with ppi daily, no nsaid's egd in 3-4 months to assess healing will follow only as needed (2) Nausea and vomiting in adult: Code(s): R11.2 - Nausea with vomiting, unspecified Status: Acute Assessment and Plan: resolved (3) Gastric ulceration: Code(s): K25.9 - Gastric ulcer, unspecified as acute or chronic, without hemorrhage or perforation Status: Acute Assessment and Plan: ppi (4) Pneumonia: Code(s): J18.9 - Pneumonia, unspecified organism Status: Acute (5) Squamous cell carcinoma of lung, stage I: Code(s): C34.90 - Malignant neoplasm of unspecified part of unspecified bronchus or lung Status: Acute (6) Coronary artery disease: Code(s): I25.10 - Atherosclerotic heart disease of [place] coronary artery without angina pectoris Status: Acute Subjective Date/time seen: 04/10/25 07:21 Interval history: egd with ulcerative gastritis, no signs of active bleeding Review of Systems Review of Systems: All systems reviewed & are unremarkable except as noted in HPI and below Exam Const: General: comfortable and no acute distress HENMT: Face/Nose/Sinus: Normal nares present Eyes: General: appearance normal, both eyes and all related structures Neck: Neck: supple Resp: Auscultation: clear to auscultation bilaterally Cardio: Rate: regular rate Rhythm: regular rhythm GI: Inspection: non-distended GI Palp: Yes Soft to palpation and No Guarding due to palpation present (GI) Auscultation: normal bowel sounds Skin: General skin exam: normal color Neuro: Speech: normal speech Motor exam (neuro): 5/5 motor strength present throughout Extrem: General: normal to inspection Psych: Mental Status: mental status grossly normal Objective Data Vital Signs Vital Signs: Vital Signs - 24 hr 04/09/25 08:00 04/09/25 08:00 04/09/25 08:00 Temperature 97.7 F Pulse Rate 73 68 Respiratory Rate 16 Blood Pressure 148/76 H Pulse Oximetry 99 Oxygen Delivery Room Air Fraction of Inspired Oxygen 04/09/25 08:12 04/09/25 08:24 04/09/25 10:00 Temperature Pulse Rate 71 74 72 Respiratory Rate 20 20 Blood Pressure Pulse Oximetry Oxygen Delivery Fraction of Inspired Oxygen 04/09/25 12:00 04/09/25 12:00 04/09/25 12:00 Temperature 97.8 F Pulse Rate 71 76 Respiratory Rate 16 Blood Pressure 159/88 H Pulse Oximetry 100 Oxygen Delivery Room Air Fraction of Inspired Oxygen 04/09/25 13:55 04/09/25 14:12 04/09/25 15:06 Temperature 98.4 F Pulse Rate 76 70 86 Respiratory Rate 18 20 Blood Pressure 174/78 H 119/75 Pulse Oximetry 99 92 Oxygen Delivery Room Air Room Air Fraction of Inspired Oxygen 04/09/25 15:16 04/09/25 15:26 04/09/25 16:00 Temperature Pulse Rate 71 77 Respiratory Rate 29 H 29 H Blood Pressure 124/74 140/85 Pulse Oximetry 98 100 Oxygen Delivery Room Air Room Air Room Air Fraction of Inspired Oxygen 04/09/25 16:00 04/09/25 16:00 04/09/25 17:19 Temperature 98.8 F Pulse Rate 87 81 80 Respiratory Rate 12 Blood Pressure 173/78 H Pulse Oximetry 98 Oxygen Delivery Fraction of Inspired Oxygen 04/09/25 17:30 04/09/25 20:00 04/09/25 20:00 Temperature 98.1 F Pulse Rate 75 74 Respiratory Rate 14 Blood Pressure 127/63 144/69 H Pulse Oximetry 99 Oxygen Delivery Fraction of Inspired Oxygen 04/09/25 20:12 04/09/25 20:20 04/09/25 20:22 Temperature Pulse Rate 79 74 79 Respiratory Rate 20 20 Blood Pressure Pulse Oximetry 98 Oxygen Delivery Room Air Fraction of Inspired Oxygen 21 04/09/25 22:00 04/10/25 00:00 04/10/25 00:00 Temperature 98.3 F Pulse Rate 84 81 78 Respiratory Rate 16 Blood Pressure 141/73 H Pulse Oximetry 99 Oxygen Delivery Fraction of Inspired Oxygen 04/10/25 02:00 04/10/25 02:06 04/10/25 02:12 Temperature Pulse Rate 71 77 75 Respiratory Rate 20 20 Blood Pressure Pulse Oximetry Oxygen Delivery Fraction of Inspired Oxygen 04/10/25 04:00 04/10/25 04:00 04/10/25 06:00 Temperature 98.0 F Pulse Rate 75 71 67 Respiratory Rate 14 Blood Pressure 150/81 H Pulse Oximetry 97 Oxygen Delivery Fraction of Inspired Oxygen Intake/Output Intake/Output: Intake & Output 04/07/25 04/08/25 04/09/25 04/10/25 23:59 23:59 23:59 23:59 Intake Total 1100 2650 683.3 Output Total 1100 Balance 1100 1550 683.3 Meds/Results Medications: Active Medications Generic Name Dose Route Start Last Admin Trade Name Freq PRN Reason Stop Dose Admin Acetaminophen 650 mg 04/08/25 18:42 04/09/25 16:14 Acetaminophen 325 Mg Tablet PO 650 mg Q4H PRN Administration Mild Pain (1-3) or Fever Albuterol/Ipratropium 3 ml 04/09/25 02:00 04/10/25 02:06 Ipratropium 0.5 Mg/Albuterol Sulfate 2.5 Mg (Base) Ampul.Neb 3 Ml INHALATION 3 ml Q6HRT TERRENCE Administration Atorvastatin Calcium 20 mg 04/09/25 21:00 04/09/25 20:26 Atorvastatin 20 Mg Tablet PO 20 mg HS TERRENCE Administration Famotidine 20 mg 04/09/25 09:00 04/09/25 20:27 Famotidine 20 Mg/2 Ml Vial IV PUSH 20 mg Q12HR TERRENCE Administration Hydralazine HCl 10 mg 04/08/25 21:07 Hydralazine Hcl 20 Mg/Ml Vial IV PUSH Q8H PRN Blood Pressure - High Sodium Chloride 1,000 mls @ 100 mls/hr 04/08/25 18:45 04/10/25 00:49 Normal Saline Iv IV CONT 100 mls/hr .Q10H TERRENCE Administration Cefepime HCl 2 gm/ Sodium 50 mls @ 100 mls/hr 04/09/25 09:00 04/09/25 20:28 Chloride IVPB 100 mls/hr Q12HR TERRENCE Administration Doxycycline Hyclate 100 mg/ 100 mls @ 100 mls/hr 04/09/25 09:00 04/09/25 21:12 Sodium Chloride IVPB 04/13/25 09:59 100 mls/hr Q12H TERRENCE Administration Lactated Ringer's 1,000 mls @ 150 mls/hr 04/09/25 14:15 04/10/25 00:50 Lr - Lactated Ringers Iv IV CONT Not Given .Q6H40M TERRENCE Pantoprazole Sodium 40 mg 04/09/25 21:00 04/09/25 20:27 Pantoprazole 40 Mg Tablet PO 40 mg Q12HR TERRENCE Administration Perflutren Lipid Microsphere 0 ml 04/08/25 18:42 Perflutren Lipid Microspheres 1.5 Ml Vial Diluted To 10 Ml Total Volume IV PUSH 04/11/25 18:42 ONCE PRN adequate visualization Protocol Radiology Results: ITS Impressions Chest X-Ray 04/08/25 16:55 IMPRESSION: No acute pulmonary findings. Chest/Abdomen/Pelvis CTA 04/08/25 17:48 IMPRESSION: 1. Negative for pulmonary embolism. Probable bilateral bronchopneumonia superimposed on chronic lung disease. There are micronodules detailed above which are probably infectious, underlying neoplasm is not excluded and follow-up is warranted to ensure stability or resolution. 2. No acute intra-abdominal process. Incidental findings above Labs Labs: Laboratory Results - last 24 hr 04/09/25 04/09/25 13:55 16:05 Troponin I 0.182 H* POC H. pylori Urease Negative
[2025-04-10 07:44] LABS: Anion Gap 5 mmol/L (4-12); Blood Urea Nitrogen 17 mg/dL (7-17); Calcium 8.8 mg/dL (8.4-10.2); Carbon Dioxide 22 mmol/L (22-30); Chloride 110 mmol/L (98-107); Estimated CRCL calculation 44 ml/min; Estimated Glomerular Filt Rate 54; Glucose 85 mg/dL (65-110); Magnesium 2.2 mg/dL (1.6-2.3); Potassium 3.9 mmol/L (3.4-5.0); Sodium 137 mmol/L (137-145)
[2025-04-10 07:47] LABS: Hematocrit 38.7 % (37.0-47.0); Hemoglobin 12.7 g/dL (12.0-15.0); Mean Corpuscular HGB Conc 32.8 g/dl (32-36); Mean Corpuscular Hemoglobin 30.5 pg (26-34); Mean Corpuscular Volume 93.0 fl (80-100); Platelet Count Result 169 k/mm3 (150-375); Red Blood Count 4.16 M/mm3 (4.2-5.4); White Blood Count 7.6 K/mm3 (4.5-10.0)
--- NOTE | 2025-04-10 07:50 | ECG_ITS ---
Test Date: 2025-04-10 08:14:07 Measurements Intervals [place] Rate: 73 P: 75 MS: 155 QRS: 65 QRSD: 81 T: 70 QT: 443 QTc: 490 Interpretive Statements SINUS RHYTHM PROLONGED QT INTERVAL ABNORMAL ECG Compared to ECG 04/09/2025 11:54:52 NO SIGNIFICANT CHANGE Electronically Signed On 04-10-2025 10:05:02 CDT by Low Mcfarland D.O.
[2025-04-10] MEDS: CEFEPIME 2 GM in SODIUM CHLORIDE 0.9% IV 50 ML 100 ML IVPB ×2 (09:17→20:28)
[2025-04-10] MEDS: FAMOTIDINE 20 MG/2 ML VIAL IV PUSH ×2 (09:17→20:31)
[2025-04-10] MEDS: PANTOPRAZOLE 40 MG TABLET PO ×2 (09:17→20:31)
--- NOTE | 2025-04-10 09:56 | WPDHPUPDATE1 ---
History and Physical Update Update Date/Time: 04/10/25 09:56 History and Physical has been reviewed, including an updated exam of the patient. There are NO changes in the patient's condition. Risks, benefits, and alternatives have been discussed and questions answered. Patient agrees to proceed with procedure.
--- NOTE | 2025-04-10 09:57 | WPDMODSED ---
Moderate Sedation Note-Pt Data Patient Data Allergies Allergy/AdvReac Type Severity Reaction Status Date / Time No Known Allergies Allergy Verified 04/09/25 14:08 Home Medications ?Medication ?Instructions ?Recorded ?Confirmed ?Type atorvastatin 20 mg tablet 20 mg PO HS 06/26/19 04/08/25 History losartan 100 mg tablet 100 mg PO DAILY 04/08/25 04/08/25 History Current Medications: Active Medications Acetaminophen (Acetaminophen 325 Mg Tablet) 650 mg PO Q4H PRN PRN Reason: Mild Pain (1-3) or Fever Last Admin: 04/09/25 16:14 Dose: 650 mg Albuterol/Ipratropium (Ipratropium 0.5 Mg/Albuterol Sulfate 2.5 Mg (Base) Ampul.Neb 3 Ml) 3 ml INHALATION Q6HRT [facility] Last Admin: 04/10/25 08:04 Dose: 3 ml Atorvastatin Calcium (Atorvastatin 20 Mg Tablet) 20 mg PO HS [facility] Last Admin: 04/09/25 20:26 Dose: 20 mg Famotidine (Famotidine 20 Mg/2 Ml Vial) 20 mg IV PUSH Q12HR [facility] Last Admin: 04/10/25 09:17 Dose: 20 mg Hydralazine HCl (Hydralazine Hcl 20 Mg/Ml Vial) 10 mg IV PUSH Q8H PRN PRN Reason: Blood Pressure - High Sodium Chloride (Normal Saline Iv) 1,000 mls @ 100 mls/hr IV CONT .Q10H [facility] Last Admin: 04/10/25 00:49 Dose: 100 mls/hr Cefepime HCl 2 gm/ Sodium (Chloride) 50 mls @ 100 mls/hr IVPB Q12HR [facility] Last Infusion: 04/10/25 09:53 Dose: Infused Doxycycline Hyclate 100 mg/ (Sodium Chloride) 100 mls @ 100 mls/hr IVPB Q12H [facility] Stop: 04/13/25 09:59 Last Admin: 04/09/25 21:12 Dose: 100 mls/hr Lactated Ringer's (Lr - Lactated Ringers Iv) 1,000 mls @ 150 mls/hr IV CONT .Q6H40M [facility] Last Admin: 04/10/25 00:50 Dose: Not Given Pantoprazole Sodium (Pantoprazole 40 Mg Tablet) 40 mg PO Q12HR [facility] Last Admin: 04/10/25 09:17 Dose: 40 mg Perflutren Lipid Microsphere (Perflutren Lipid Microspheres 1.5 Ml Vial Diluted To 10 Ml Total Volume) 0 ml IV PUSH ONCE PRN; Protocol PRN Reason: adequate visualization Stop: 04/11/25 18:42 Sedation/Anesthesia: No previous sedation/anesthesia problems (including family history). [facility] Past Medical History Medical History (Updated 04/10/25 @ 07:22 by Vinnie Butt MD) Gastric ulceration Nausea and vomiting in adult Melena Squamous cell carcinoma of lung, stage I /radiation completed Chronic GERD HTN (hypertension) with goal to be determined Hyperlipidemia Osteoporosis Liver failure Hepatitis C COPD (chronic obstructive pulmonary disease) Surgical History Surgical History H/O neck surgery History of back surgery History of orthopedic surgery removal of 3 lt ribs History of hysterectomy S/P insertion of iliac artery stent bilateral iliac stents placed Social History Social History Social History: She continues to work part work at a [employer] ([employer]). She has no children and lives with her mother. She stated she is down to half a pack a cigarettes a day. She does not have a power of patent attorney for healthcare. Code status: Full code Smoking packs per day: 0.5 Smoking cigarettes per day: 10.0 Years smoked: 45 Smoking pack-years: 22.50 Smoking status: Current every day smoker Tobacco type: cigarettes Alcohol intake: former Substance use: unknown Substance use type: does not use Lack of Transportation: No Lack of Food: Never True Current Housing: I Have Housing Concerned About Future Housing: No Difficulty Paying Gas/Electric Bills: No Difficulty Paying for Meds: No Currently Unemployed: No Education: High School Diploma/GED Difficulty w/ Childcare or Family Care: No Gender identity (if verbalized by the patient): Female Spiritual care concerns: No Mod Sed Physical Exam Physical Exam Pre Procedural Exam: Normal: Airway Hours since solid foods: 9 Hours since liquid intake: 9 Mallampati Classification: class II Internal Medicine - PN: Obj Da Vital Signs Vital Signs: Vital Signs - 24 hr 04/09/25 10:00 04/09/25 12:00 04/09/25 12:00 Temperature 36.6 C Pulse Rate 72 71 Respiratory Rate 16 Blood Pressure 159/88 H Pulse Oximetry 100 Oxygen Delivery Room Air Fraction of Inspired Oxygen 04/09/25 12:00 04/09/25 13:55 04/09/25 14:12 Temperature 36.9 C Pulse Rate 76 76 70 Respiratory Rate 18 Blood Pressure 174/78 H Pulse Oximetry 99 Oxygen Delivery Room Air Fraction of Inspired Oxygen 04/09/25 15:06 04/09/25 15:16 04/09/25 15:26 Temperature Pulse Rate 86 71 77 Respiratory Rate 20 29 H 29 H Blood Pressure 119/75 124/74 140/85 Pulse Oximetry 92 98 100 Oxygen Delivery Room Air Room Air Room Air Fraction of Inspired Oxygen 04/09/25 16:00 04/09/25 16:00 04/09/25 16:00 Temperature 37.1 C Pulse Rate 87 81 Respiratory Rate 12 Blood Pressure 173/78 H Pulse Oximetry 98 Oxygen Delivery Room Air Fraction of Inspired Oxygen 04/09/25 17:19 04/09/25 17:30 04/09/25 20:00 Temperature 36.7 C Pulse Rate 80 75 Respiratory Rate 14 Blood Pressure 127/63 144/69 H Pulse Oximetry 99 Oxygen Delivery Fraction of Inspired Oxygen 04/09/25 20:00 04/09/25 20:12 04/09/25 20:20 Temperature Pulse Rate 74 79 74 Respiratory Rate 20 20 Blood Pressure Pulse Oximetry Oxygen Delivery Fraction of Inspired Oxygen 04/09/25 20:22 04/09/25 22:00 04/10/25 00:00 Temperature 36.8 C Pulse Rate 79 84 81 Respiratory Rate 16 Blood Pressure 141/73 H Pulse Oximetry 98 99 Oxygen Delivery Room Air Fraction of Inspired Oxygen 21 04/10/25 00:00 04/10/25 02:00 04/10/25 02:06 Temperature Pulse Rate 78 71 77 Respiratory Rate 20 Blood Pressure Pulse Oximetry Oxygen Delivery Fraction of Inspired Oxygen 04/10/25 02:12 04/10/25 04:00 04/10/25 04:00 Temperature 36.7 C Pulse Rate 75 75 71 Respiratory Rate 20 14 Blood Pressure 150/81 H Pulse Oximetry 97 Oxygen Delivery Fraction of Inspired Oxygen 04/10/25 06:00 04/10/25 08:00 04/10/25 08:04 Temperature 36.5 C Pulse Rate 67 76 Respiratory Rate 16 Blood Pressure 155/72 H Pulse Oximetry 100 98 Oxygen Delivery Room Air Fraction of Inspired Oxygen 04/10/25 08:04 04/10/25 08:12 Temperature Pulse Rate 68 73 Respiratory Rate 16 16 Blood Pressure Pulse Oximetry Oxygen Delivery Fraction of Inspired Oxygen Intake/Output Intake/Output: Intake & Output 04/07/25 04/08/25 04/09/25 04/10/25 23:59 23:59 23:59 23:59 Intake Total 1100 2700 733.3 Output Total 1100 900 Balance 1100 1600 -166.7 Meds/Results Medications: Active Medications Generic Name Dose Route Start Last Admin Trade Name Freq PRN Reason Stop Dose Admin Acetaminophen 650 mg 04/08/25 18:42 04/09/25 16:14 Acetaminophen 325 Mg Tablet PO 650 mg Q4H PRN Administration Mild Pain (1-3) or Fever Albuterol/Ipratropium 3 ml 04/09/25 02:00 04/10/25 08:04 Ipratropium 0.5 Mg/Albuterol Sulfate 2.5 Mg (Base) Ampul.Neb 3 Ml INHALATION 3 ml Q6HRT [facility] Administration Atorvastatin Calcium 20 mg 04/09/25 21:00 04/09/25 20:26 Atorvastatin 20 Mg Tablet PO 20 mg HS [facility] Administration Famotidine 20 mg 04/09/25 09:00 04/10/25 09:17 Famotidine 20 Mg/2 Ml Vial IV PUSH 20 mg Q12HR [facility] Administration Hydralazine HCl 10 mg 04/08/25 21:07 Hydralazine Hcl 20 Mg/Ml Vial IV PUSH Q8H PRN Blood Pressure - High Sodium Chloride 1,000 mls @ 100 mls/hr 04/08/25 18:45 04/10/25 00:49 Normal Saline Iv IV CONT 100 mls/hr .Q10H [facility] Administration Cefepime HCl 2 gm/ Sodium 50 mls @ 100 mls/hr 04/09/25 09:00 04/10/25 09:53 Chloride IVPB Infused Q12HR [facility] Infusion Doxycycline Hyclate 100 mg/ 100 mls @ 100 mls/hr 04/09/25 09:00 04/09/25 21:12 Sodium Chloride IVPB 04/13/25 09:59 100 mls/hr Q12H [facility] Administration Lactated Ringer's 1,000 mls @ 150 mls/hr 04/09/25 14:15 04/10/25 00:50 Lr - Lactated Ringers Iv IV CONT Not Given .Q6H40M [facility] Pantoprazole Sodium 40 mg 04/09/25 21:00 04/10/25 09:17 Pantoprazole 40 Mg Tablet PO 40 mg Q12HR [facility] Administration Perflutren Lipid Microsphere 0 ml 04/08/25 18:42 Perflutren Lipid Microspheres 1.5 Ml Vial Diluted To 10 Ml Total Volume IV PUSH 04/11/25 18:42 ONCE PRN adequate visualization Protocol Radiology Results: ITS Impressions Chest X-Ray 04/08/25 16:55 IMPRESSION: No acute pulmonary findings. Chest/Abdomen/Pelvis CTA 04/08/25 17:48 IMPRESSION: 1. Negative for pulmonary embolism. Probable bilateral bronchopneumonia superimposed on chronic lung disease. There are micronodules detailed above which are probably infectious, underlying neoplasm is not excluded and follow-up is warranted to ensure stability or resolution. 2. No acute intra-abdominal process. Incidental findings above Labs 04/10/25 07:42 04/10/25 06:41 Labs: Laboratory Results - last 24 hr 04/09/25 04/09/25 04/10/25 13:55 16:05 06:41 WBC RBC Hgb Hct MCV MCH MCHC RDW Plt Count MPV Sodium 137 Potassium 3.9 Chloride 110 H Carbon Dioxide 22 Anion Gap 5 BUN 17 Creatinine 1.04 H Estim Creat Clear Calc 44 Estimated GFR 54 L Glucose 85 Calcium 8.8 Magnesium 2.2 Troponin I 0.182 H* POC H. pylori Urease Negative 04/10/25 07:42 WBC 7.6 RBC 4.16 L Hgb 12.7 Hct 38.7 MCV 93.0 MCH 30.5 MCHC 32.8 RDW 13.2 Plt Count 169 MPV 10.0 Sodium Potassium Chloride Carbon Dioxide Anion Gap BUN Creatinine Estim Creat Clear Calc Estimated GFR Glucose Calcium Magnesium Troponin I POC H. pylori Urease ASA Classification/Sedation ASA Classification/Sedation ASA Class: III Emergent: No Risks: Risks, benefits and alternatives explained and patient/family accepted plan for sedation. Patient re-evaluated immediately prior to sedation.
--- NOTE | 2025-04-10 09:59 | PC.NURSE ---
pt taken down for cath
--- NOTE | 2025-04-10 10:49 | P.PCNCC_ITS ---
Cardiac Cath Procedure Note Date of procedure:: 04/10/25 Performing physician:: Luis Morataya MD Procedure Procedure performed:: LEFT HEART CATHETERIZATION AND CORONARY ANGIOGRAM REPORT DATE OF PROCEDURE: 04/10/2025 INDICATION FOR PROCEDURE: Chest pain, minimal troponin elevation BRIEF CLINICAL HISTORY: 59-year-old female with hypertension, peripheral artery disease, COPD, lung cancer status post radiation, tobacco abuse. Patient reported that she usually gets her cardiovascular care at [facility]. She presented to [facility] Emergency Room on 04/09/2025 with complaints of chest discomfort and hematochezia. EKG did not show any acute ST segment abnormality. Serial troponins were minimally elevated. Patient underwent Gastroenterology evaluation and her EGD reportedly showed gastritis and duodenitis. Patient was concerned about her symptoms of chest discomfort. Patient did not have any active GI bleeding hospitalization and her hemoglobin remained stable. After discussion with the patient, she was eager to proceed with cardiac catheterization to evaluate her coronary anatomy. Benefits and risks of the procedure were discussed with the patient in depth, and informed consent was obtained prior to the procedure. Risks of the procedure include but are not limited to vascular complications including groin hematoma, retroperitoneal bleed, vessel perforation; periprocedural DE, cardiac arrhythmias, stroke, contrast induced nephropathy, and . After discussing all the benefits, risks and alternatives, patient was willing to proceed with the procedure. PROCEDURES PERFORMED: 1. Left heart catheterization- Selective left and right coronary angiogram; left ventriculogram and hemodynamic assessment 2. Ultrasound-guided right radial artery access 3. Moderate sedation-CPT code 06848 MODERATE SEDATION: Midazolam 2 mg; fentanyl 75 mcg; Start time 1016 , Stop time 1038 ; Total [id number] time 16 minutes; Moriah Hayward RN was trained observer for moderate sedation. ACCESS SITE: Right radial artery PROCEDURE NOTE: After obtaining informed consent, patient was brought to catheterization lab and prepped and draped in a usual sterile manner. After local anesthesia with lidocaine, right radial artery access was taken with micropuncture needle under ultrasound guidance followed by insertion of a 6 Albanian sheath. Patient received 2.5 mg of verapamil, 200 mcg of nitroglycerin through the arterial sheath; and 5000 units of unfractionated heparin IV. Selective left and right coronary angiogram was performed using 5 Albanian JL3.5 and JR4 catheters respectively. Orthogonal views were taken. JR4 catheter was advanced in the LV cavity. The catheter was flushed, and LV pressure measurements were performed. After this, LV gram was performed using minimal dye. The gradient across the aortic valve was measured on the pullback of the catheter. Finally, radial band was applied for local hemostasis. Patient tolerated procedure well without any immediate procedure related complications. FINDINGS: LEFT MAIN CORONARY: The left main coronary artery is very short vessel, or possibly there are 2 separate ostia for LAD and left circumflex arteries. No significant dampening of the pressures and good reflux of contrast was seen. LEFT ANTERIOR DESCENDING ARTERY: Lad is a medium caliber vessel, tapers distally and reaches LV apex. There is mild narrowing at the ostium. 30-40% diffuse stenosis seen in the mid segment. No segment stenosis in the smaller caliber diagonal branches. LEFT CIRCUMFLEX ARTERY: The left circumflex artery either arises from a very short left main coronary artery or has its own separate ostium. The vessel is a medium caliber vessel with mild plaque in the proximal segment. Vessel gives rise to medium caliber OM branch which trifurcates into 3 branches. No segment focal stenosis is seen. The main LCX is a small caliber vessel with mild plaque and continues in the AV groove. RIGHT CORONARY ARTERY: Medium caliber vessel with mild plaque in the proximal segment. Vessel gives rise to small to medium caliber PDA and PLV branches. No significant focal stenosis. LEFT VENTRICULOGRAM: Normal LV systolic function, ejection fraction about 60%. LVEDP 13 mmHg. HEMODYNAMIC ASSESSMENT: Opening pressure 160/76 mmHg, closing pressure 148/87 mmHg, LVEDP 13 , no significant gradient across aortic valve on the pullback of pigtail catheter. CONCLUSIONS: 1. Mild nonobstructive CAD with mild plaque in the proximal-mid LAD. 2. Normal LV systolic function, ejection fraction about 60%. LVEDP 13 mmHg. 3. Systemic hypertension. PLAN/RECOMMENDATIONS: Optimal medical treatment and risk factor modification including optimal blood pressure control and complete smoking cessation. Outpatient Cardiology follow-up for long-term cardiac care. This document was completed by using [employer] Fluency Direct speech recognition software, therefore, wheel presser variances may occur.
[2025-04-10] MEDS: SODIUM CHLORIDE 0.9% IV 1,000 ML 125 ML IV CONT (13:18)
--- NOTE | 2025-04-10 13:25 | PM.IMPN ---
Progress Note: A&P Assessment and Plan (1) Pneumonia: Code(s): J18.9 - Pneumonia, unspecified organism Status: Acute (2) Cardiac enzymes elevated: Code(s): R74.8 - Abnormal levels of other serum enzymes Status: Acute (3) Acute kidney injury: Code(s): N17.9 - Acute kidney failure, unspecified Status: Acute (4) HTN (hypertension) with goal to be determined: Code(s): I10 - Essential (primary) hypertension Status: Acute (5) Hyperlipidemia: Code(s): E78.5 - Hyperlipidemia, unspecified Status: Acute (6) Squamous cell carcinoma of lung, stage I: Code(s): C34.90 - Malignant neoplasm of unspecified part of unspecified bronchus or lung Status: Acute (7) COPD (chronic obstructive pulmonary disease): Code(s): J44.9 - Chronic obstructive pulmonary disease, unspecified Status: Acute Plan This is a 59-year-old female patient who has stage I lung cancer with completed radiation treatment, tobacco abuse, and COPD. She presented to the emergency department today with nausea and vomiting with black tarry stools and shortness of breath. She stated that this has been ongoing for approximately 2 days. She is not on any blood thinners and has had no change in her medication. She stated that she completed radiation treatment approximately January of this year. Today she had a large bowel movement that was dark and tarry. She has been short of breath for 2 days but denies any chest pressure. Her white count was noted to be 11.1. H and H is 17.3 and 50.7. Her sodium is 136 and she has an anion gap of 15. BUN is 17 with a creatinine of 1.35. GFR is 40. The initial troponin was found to be 0.753 with a 3 hour troponin of 0.552. Chest x-ray was read as no acute cardiopulmonary findings. Chest abdomen pelvis CTA was read as the followingNegative for pulmonary embolism. Probable bilateral bronchopneumonia superimposed on chronic lung disease. There are micronodules detailed above which are probably infectious, underlying neoplasm is not excluded and follow-up is warranted to ensure stability or resolution. 2. No acute intra-abdominal process. Incidental findings above. She was started on vancomycin, cefepime, magnesium, and normal saline in the emergency room. EKG with no acute ST-T changes. Echo showed EF of 65-70% no regional wall motion abnormality. History of coronary artery disease status post stents Elevated troponin. Trend 0.753-0.55 2-0.43 3-0.182. She Underwent cardiac catheterization which showed mild nonobstructive coronary artery disease with mild plaque in proximal mid LAD. Normal LV systolic function. Melena status post EGD with gastritis and duodenitis small gastric ulcers with no active bleeding. Ppi b.i.d. repeat EGD in 4 months to assess healing. Pneumonia as noted on the CTA. Currently treated with cefepime and doxycycline. COPD Stage I lung cancer status post radiation treatment Tobacco abuse DVT prophylaxis SCDs Code status full code Subjective Date/time seen: 04/10/25 13:25 Interval history: This is a 59-year-old female patient who has stage I lung cancer with completed radiation treatment, tobacco abuse, and COPD. She presented to the emergency department today with nausea and vomiting with black tarry stools and shortness of breath. She stated that this has been ongoing for approximately 2 days. She is not on any blood thinners and has had no change in her medication. She stated that she completed radiation treatment approximately January of this year. Today she had a large bowel movement that was dark and tarry. She has been short of breath for 2 days but denies any chest pressure. Her white count was noted to be 11.1. H and H is 17.3 and 50.7. Her sodium is 136 and she has an anion gap of 15. BUN is 17 with a creatinine of 1.35. GFR is 40. The initial troponin was found to be 0.753 with a 3 hour troponin of 0.552. Chest x-ray was read as no acute cardiopulmonary findings. Chest abdomen pelvis CTA was read as the followingNegative for pulmonary embolism. Probable bilateral bronchopneumonia superimposed on chronic lung disease. There are micronodules detailed above which are probably infectious, underlying neoplasm is not excluded and follow-up is warranted to ensure stability or resolution. 2. No acute intra-abdominal process. Incidental findings above. She was started on vancomycin, cefepime, magnesium, and normal saline in the emergency room. EKG with no acute ST-T changes. Echo showed EF of 65-70% no regional wall motion abnormality. History of coronary artery disease status post stents Elevated troponin. Trend 0.753-0.55 2-0.43 3-0.182. She Underwent cardiac catheterization which showed mild nonobstructive coronary artery disease with mild plaque in proximal mid LAD. Normal LV systolic function. Melena status post EGD with gastritis and duodenitis small gastric ulcers with no active bleeding. Ppi b.i.d. repeat EGD in 4 months to assess healing. Pneumonia as noted on the CTA. Currently treated with cefepime and doxycycline. seen after catheterization. Feeling better. No chest pain or shortness of breath. Review of Systems Review of Systems: All systems reviewed & are unremarkable except as noted in HPI and below Exam Narrative: GENERAL: The patient is well developed, not in acute distress HEENT: Nonicteric sclerae, PERRLA, EOMI. Oropharynx clear. Moist mucous membranes. Conjunctivae appear well perfused. CHEST: Chest wall is nontender. HEART: Regular rate and rhythm without murmur, rubs, or gallops LUNGS: Clear to auscultation bilaterally. no respiratory distress ABDOMEN: Soft, positive bowel sounds, non-tender, no organomegaly. SKIN: No rash, no excessive bruising, petechiae, or purpura. NEUROLOGIC: Cranial nerves II-XII intact, alert and oriented x 3, no gross motor deficits EXTREMITIES: no edema, cyanosis or clubbing Objective Data Vital Signs Vital Signs: Vital Signs - 24 hr 04/09/25 13:55 04/09/25 14:12 04/09/25 15:06 Temperature 98.4 F Pulse Rate 76 70 86 Pulse Rate [Right Radial] Respiratory Rate 18 20 Blood Pressure 174/78 H 119/75 Pulse Oximetry 99 92 Oxygen Delivery Room Air Room Air Fraction of Inspired Oxygen 04/09/25 15:16 04/09/25 15:26 04/09/25 16:00 Temperature Pulse Rate 71 77 Pulse Rate [Right Radial] Respiratory Rate 29 H 29 H Blood Pressure 124/74 140/85 Pulse Oximetry 98 100 Oxygen Delivery Room Air Room Air Room Air Fraction of Inspired Oxygen 04/09/25 16:00 04/09/25 16:00 04/09/25 17:19 Temperature 98.8 F Pulse Rate 87 81 80 Pulse Rate [Right Radial] Respiratory Rate 12 Blood Pressure 173/78 H Pulse Oximetry 98 Oxygen Delivery Fraction of Inspired Oxygen 04/09/25 17:30 04/09/25 20:00 04/09/25 20:00 Temperature 98.1 F Pulse Rate 75 74 Pulse Rate [Right Radial] Respiratory Rate 14 Blood Pressure 127/63 144/69 H Pulse Oximetry 99 Oxygen Delivery Fraction of Inspired Oxygen 04/09/25 20:12 04/09/25 20:20 04/09/25 20:22 Temperature Pulse Rate 79 74 79 Pulse Rate [Right Radial] Respiratory Rate 20 20 Blood Pressure Pulse Oximetry 98 Oxygen Delivery Room Air Fraction of Inspired Oxygen 21 04/09/25 22:00 04/10/25 00:00 04/10/25 00:00 Temperature 98.3 F Pulse Rate 84 81 78 Pulse Rate [Right Radial] Respiratory Rate 16 Blood Pressure 141/73 H Pulse Oximetry 99 Oxygen Delivery Fraction of Inspired Oxygen 04/10/25 02:00 04/10/25 02:06 04/10/25 02:12 Temperature Pulse Rate 71 77 75 Pulse Rate [Right Radial] Respiratory Rate 20 20 Blood Pressure Pulse Oximetry Oxygen Delivery Fraction of Inspired Oxygen 04/10/25 04:00 04/10/25 04:00 04/10/25 06:00 Temperature 98.0 F Pulse Rate 75 71 67 Pulse Rate [Right Radial] Respiratory Rate 14 Blood Pressure 150/81 H Pulse Oximetry 97 Oxygen Delivery Fraction of Inspired Oxygen 04/10/25 08:00 04/10/25 08:00 04/10/25 08:00 Temperature 97.7 F Pulse Rate 76 70 Pulse Rate [Right Radial] Respiratory Rate 16 Blood Pressure 155/72 H Pulse Oximetry 100 Oxygen Delivery Room Air Fraction of Inspired Oxygen 04/10/25 08:04 04/10/25 08:04 04/10/25 08:12 Temperature Pulse Rate 68 73 Pulse Rate [Right Radial] Respiratory Rate 16 16 Blood Pressure Pulse Oximetry 98 Oxygen Delivery Room Air Fraction of Inspired Oxygen 04/10/25 10:00 04/10/25 11:00 04/10/25 11:00 Temperature Pulse Rate 98 77 Pulse Rate [Right Radial] 77 Respiratory Rate 18 Blood Pressure 161/88 H Pulse Oximetry 99 Oxygen Delivery Room Air Fraction of Inspired Oxygen 04/10/25 11:15 04/10/25 11:15 04/10/25 11:30 Temperature Pulse Rate 77 Pulse Rate [Right Radial] 77 69 Respiratory Rate 15 Blood Pressure 154/86 H Pulse Oximetry 99 Oxygen Delivery Room Air Fraction of Inspired Oxygen 04/10/25 11:30 04/10/25 11:45 04/10/25 11:45 Temperature Pulse Rate 69 73 Pulse Rate [Right Radial] 73 Respiratory Rate 15 15 Blood Pressure 148/95 H 123/85 Pulse Oximetry 99 99 Oxygen Delivery Room Air Room Air Fraction of Inspired Oxygen 04/10/25 12:00 04/10/25 12:00 04/10/25 12:15 Temperature Pulse Rate 73 Pulse Rate [Right Radial] 73 67 Respiratory Rate 21 H Blood Pressure 150/77 H Pulse Oximetry 99 Oxygen Delivery Room Air Fraction of Inspired Oxygen 04/10/25 12:15 04/10/25 12:30 04/10/25 12:30 Temperature Pulse Rate 67 75 Pulse Rate [Right Radial] 75 Respiratory Rate 16 14 Blood Pressure 155/92 H 186/87 H Pulse Oximetry 100 100 Oxygen Delivery Room Air Room Air Fraction of Inspired Oxygen 04/10/25 12:44 04/10/25 12:44 04/10/25 13:00 Temperature Pulse Rate 71 Pulse Rate [Right Radial] 71 68 Respiratory Rate 14 Blood Pressure 186/87 H Pulse Oximetry 100 Oxygen Delivery Room Air Fraction of Inspired Oxygen 04/10/25 13:00 04/10/25 13:15 04/10/25 13:15 Temperature Pulse Rate 68 68 Pulse Rate [Right Radial] 68 Respiratory Rate 17 14 Blood Pressure 162/72 H 151/74 H Pulse Oximetry 100 99 Oxygen Delivery Room Air Room Air Fraction of Inspired Oxygen Intake/Output Intake/Output: Intake & Output 04/07/25 04/08/25 04/09/25 04/10/25 23:59 23:59 23:59 23:59 Intake Total 1100 2700 1726.6 Output Total 1100 900 Balance 1100 1600 826.6 Meds/Results Medications: Active Medications Generic Name Dose Route Start Last Admin Trade Name Freq PRN Reason Stop Dose Admin Acetaminophen 650 mg 04/08/25 18:42 04/09/25 16:14 Acetaminophen 325 Mg Tablet PO 650 mg Q4H PRN Administration Mild Pain (1-3) or Fever Albuterol/Ipratropium 3 ml 04/09/25 02:00 04/10/25 08:04 Ipratropium 0.5 Mg/Albuterol Sulfate 2.5 Mg (Base) Ampul.Neb 3 Ml INHALATION 3 ml Q6HRT TERRENCE Administration Atorvastatin Calcium 20 mg 04/09/25 21:00 04/09/25 20:26 Atorvastatin 20 Mg Tablet PO 20 mg HS TERRENCE Administration Famotidine 20 mg 04/09/25 09:00 04/10/25 09:17 Famotidine 20 Mg/2 Ml Vial IV PUSH 20 mg Q12HR TERRENCE Administration Hydralazine HCl 10 mg 04/08/25 21:07 Hydralazine Hcl 20 Mg/Ml Vial IV PUSH Q8H PRN Blood Pressure - High Sodium Chloride 1,000 mls @ 100 mls/hr 04/08/25 18:45 04/10/25 10:45 Normal Saline Iv IV CONT 0 mls/hr .Q10H TERRENCE Infusion Cefepime HCl 2 gm/ Sodium 50 mls @ 100 mls/hr 04/09/25 09:00 04/10/25 09:53 Chloride IVPB Infused Q12HR TERRENCE Infusion Doxycycline Hyclate 100 mg/ 100 mls @ 100 mls/hr 04/09/25 09:00 04/09/25 21:12 Sodium Chloride IVPB 04/13/25 09:59 100 mls/hr Q12H TERRENCE Administration Lactated Ringer's 1,000 mls @ 150 mls/hr 04/09/25 14:15 04/10/25 00:50 Lr - Lactated Ringers Iv IV CONT Not Given .Q6H40M TERRENCE Sodium Chloride 1,000 mls @ 125 mls/hr 04/10/25 10:46 04/10/25 13:18 Normal Saline Iv IV CONT 04/10/25 18:45 125 mls/hr .Q8H ONE Administration Pantoprazole Sodium 40 mg 04/09/25 21:00 04/10/25 09:17 Pantoprazole 40 Mg Tablet PO 40 mg Q12HR TERRENCE Administration Perflutren Lipid Microsphere 0 ml 04/08/25 18:42 Perflutren Lipid Microspheres 1.5 Ml Vial Diluted To 10 Ml Total Volume IV PUSH 04/11/25 18:42 ONCE PRN adequate visualization Protocol Radiology Results: ITS Impressions Chest X-Ray 04/08/25 16:55 IMPRESSION: No acute pulmonary findings. Chest/Abdomen/Pelvis CTA 04/08/25 17:48 IMPRESSION: 1. Negative for pulmonary embolism. Probable bilateral bronchopneumonia superimposed on chronic lung disease. There are micronodules detailed above which are probably infectious, underlying neoplasm is not excluded and follow-up is warranted to ensure stability or resolution. 2. No acute intra-abdominal process. Incidental findings above Labs Labs: Laboratory Results - last 24 hr 04/09/25 04/09/25 04/10/25 13:55 16:05 06:41 WBC RBC Hgb Hct MCV MCH MCHC RDW Plt Count MPV Sodium 137 Potassium 3.9 Chloride 110 H Carbon Dioxide 22 Anion Gap 5 BUN 17 Creatinine 1.04 H Estim Creat Clear Calc 44 Estimated GFR 54 L Glucose 85 Calcium 8.8 Magnesium 2.2 Troponin I 0.182 H* POC H. pylori Urease Negative 04/10/25 07:42 WBC 7.6 RBC 4.16 L Hgb 12.7 Hct 38.7 MCV 93.0 MCH 30.5 MCHC 32.8 RDW 13.2 Plt Count 169 MPV 10.0 Sodium Potassium Chloride Carbon Dioxide Anion Gap BUN Creatinine Estim Creat Clear Calc Estimated GFR Glucose Calcium Magnesium Troponin I POC H. pylori Urease
[2025-04-10] MEDS: DOXYCYCLINE IV 100 MG in SODIUM CHLORIDE 0.9% IV 100 ML IVPB ×2 (13:35→21:08)
--- NOTE | 2025-04-10 14:48 | PC.NURSE ---
report called from labeling associate, pt to return in 30 mins, no stent placed, tr removed at 141
--- NOTE | 2025-04-10 15:45 | PC.NURSE ---
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
[2025-04-10] MEDS: ACETAMINOPHEN 325 MG TABLET 650 MG PO (18:19)
[2025-04-10] MEDS: ATORVASTATIN 20 MG TABLET PO (20:31)
--- NOTE | 2025-04-10 23:07 | PC.NURSE ---
2238 Patient able to rolerate doxycycline infusion with NS running at the same time to dilute. Order received from Mary JESUS to run doxycycline with additional 50 ml NS to dilute.
--- NOTE | 2025-04-10 23:49 | PC.NURSE ---
Discussed elevated blood pressures with Mary Palafox [employer]PER[employer]; OK to give PRN hydralazine at this time.
[2025-04-11] VITALS (21 sets, daily range): BP systolic 136–179; BP diastolic 79–95; PULSE 70–103; RESP 13–20; TEMP 36.2–36.6; O2SAT 99–100
[2025-04-11] MEDS: ACETAMINOPHEN 325 MG TABLET 650 MG PO ×3 (00:07→15:13)
[2025-04-11] MEDS: IPRATROPIUM 0.5 MG/ALBUTEROL SULFATE 2.5 MG (BASE) AMPUL.NEB 3 ML INHALATION ×4 (01:24→20:30)
[2025-04-11 04:56] LABS: Hematocrit 39.2 % (37.0-47.0); Hemoglobin 12.8 g/dL (12.0-15.0); Mean Corpuscular HGB Conc 32.7 g/dl (32-36); Mean Corpuscular Hemoglobin 30.7 pg (26-34); Mean Corpuscular Volume 94.0 fl (80-100); Platelet Count Result 170 k/mm3 (150-375); Red Blood Count 4.17 M/mm3 (4.2-5.4); White Blood Count 7.9 K/mm3 (4.5-10.0)
[2025-04-11 05:18] LABS: Anion Gap 7 mmol/L (4-12); Blood Urea Nitrogen 11 mg/dL (7-17); Calcium 8.8 mg/dL (8.4-10.2); Carbon Dioxide 22 mmol/L (22-30); Chloride 109 mmol/L (98-107); Estimated CRCL calculation 50 ml/min; Estimated Glomerular Filt Rate > 60; Glucose 95 mg/dL (65-110); Magnesium 1.9 mg/dL (1.6-2.3); Potassium 3.5 mmol/L (3.4-5.0); Sodium 138 mmol/L (137-145)
[2025-04-11] MEDS: PANTOPRAZOLE 40 MG TABLET PO ×2 (08:34→20:47)
[2025-04-11] MEDS: FAMOTIDINE 20 MG/2 ML VIAL IV PUSH ×2 (08:34→20:47)
[2025-04-11] MEDS: CEFEPIME 2 GM in SODIUM CHLORIDE 0.9% IV 50 ML 100 ML IVPB ×2 (08:35→20:46)
[2025-04-11] MEDS: DOXYCYCLINE IV 100 MG in SODIUM CHLORIDE 0.9% IV 100 ML IVPB ×2 (08:35→21:36)
[2025-04-11] MEDS: SODIUM CHLORIDE 0.9% IV 50 ML IVPB ×2 (10:03→21:37)
--- NOTE | 2025-04-11 14:23 | PM.IMPN ---
Progress Note: A&P Assessment and Plan (1) Pneumonia: Code(s): J18.9 - Pneumonia, unspecified organism Status: Acute (2) Cardiac enzymes elevated: Code(s): R74.8 - Abnormal levels of other serum enzymes Status: Acute (3) Acute kidney injury: Code(s): N17.9 - Acute kidney failure, unspecified Status: Acute (4) HTN (hypertension) with goal to be determined: Code(s): I10 - Essential (primary) hypertension Status: Acute (5) Hyperlipidemia: Code(s): E78.5 - Hyperlipidemia, unspecified Status: Acute (6) Squamous cell carcinoma of lung, stage I: Code(s): C34.90 - Malignant neoplasm of unspecified part of unspecified bronchus or lung Status: Acute (7) COPD (chronic obstructive pulmonary disease): Code(s): J44.9 - Chronic obstructive pulmonary disease, unspecified Status: Acute Plan This is a 59-year-old female patient who has stage I lung cancer with completed radiation treatment, tobacco abuse, and COPD. She presented to the emergency department today with nausea and vomiting with black tarry stools and shortness of breath. She stated that this has been ongoing for approximately 2 days. She is not on any blood thinners and has had no change in her medication. She stated that she completed radiation treatment approximately January of this year. Today she had a large bowel movement that was dark and tarry. She has been short of breath for 2 days but denies any chest pressure. Her white count was noted to be 11.1. H and H is 17.3 and 50.7. Her sodium is 136 and she has an anion gap of 15. BUN is 17 with a creatinine of 1.35. GFR is 40. The initial troponin was found to be 0.753 with a 3 hour troponin of 0.552. Chest x-ray was read as no acute cardiopulmonary findings. Chest abdomen pelvis CTA was read as the followingNegative for pulmonary embolism. Probable bilateral bronchopneumonia superimposed on chronic lung disease. There are micronodules detailed above which are probably infectious, underlying neoplasm is not excluded and follow-up is warranted to ensure stability or resolution. 2. No acute intra-abdominal process. Incidental findings above. She was started on vancomycin, cefepime, magnesium, and normal saline in the emergency room. EKG with no acute ST-T changes. Echo showed EF of 65-70% no regional wall motion abnormality. History of coronary artery disease status post stents Elevated troponin. Trend 0.753-0.55 2-0.43 3-0.182. She Underwent cardiac catheterization which showed mild nonobstructive coronary artery disease with mild plaque in proximal mid LAD. Normal LV systolic function. Melena status post EGD with gastritis and duodenitis small gastric ulcers with no active bleeding. Ppi b.i.d. repeat EGD in 4 months to assess healing. Pneumonia as noted on the CTA. Currently treated with cefepime and doxycycline. COPD Stage I lung cancer status post radiation treatment Tobacco abuse DVT prophylaxis SCDs Code status full code Subjective Date/time seen: 04/11/25 14:23 Interval history: No overnight events. Complains of some headache this a.m.. No chest pain or shortness of breath. No further melena Review of Systems Review of Systems: All systems reviewed & are unremarkable except as noted in HPI and below Exam Narrative: GENERAL: The patient is well developed, not in acute distress HEENT: Nonicteric sclerae, PERRLA, EOMI. Oropharynx clear. Moist mucous membranes. Conjunctivae appear well perfused. CHEST: Chest wall is nontender. HEART: Regular rate and rhythm without murmur, rubs, or gallops LUNGS: Clear to auscultation bilaterally. no respiratory distress ABDOMEN: Soft, positive bowel sounds, non-tender, no organomegaly. SKIN: No rash, no excessive bruising, petechiae, or purpura. NEUROLOGIC: Cranial nerves II-XII intact, alert and oriented x 3, no gross motor deficits EXTREMITIES: no edema, cyanosis or clubbing Objective Data Vital Signs Vital Signs: Vital Signs - 24 hr 04/10/25 14:30 04/10/25 14:30 04/10/25 14:45 Temperature Pulse Rate 70 Pulse Rate [Right Radial] 70 62 Respiratory Rate 17 Blood Pressure 159/82 H Pulse Oximetry 99 Oxygen Delivery Room Air 04/10/25 14:45 04/10/25 15:00 04/10/25 15:00 Temperature Pulse Rate 62 65 Pulse Rate [Right Radial] 65 Respiratory Rate 17 16 Blood Pressure 157/84 H 160/82 H Pulse Oximetry 98 99 Oxygen Delivery Room Air Room Air 04/10/25 15:15 04/10/25 15:15 04/10/25 15:45 Temperature 98 F Pulse Rate 65 76 Pulse Rate [Right Radial] 65 Respiratory Rate 17 18 Blood Pressure 156/79 H 153/72 H Pulse Oximetry 98 99 Oxygen Delivery Room Air 04/10/25 16:00 04/10/25 16:00 04/10/25 16:15 Temperature 98.4 F Pulse Rate 71 75 Pulse Rate [Right Radial] Respiratory Rate 16 Blood Pressure 178/83 H Pulse Oximetry 99 Oxygen Delivery Room Air 04/10/25 17:15 04/10/25 18:00 04/10/25 18:15 Temperature 98.1 F 98 F Pulse Rate 76 73 71 Pulse Rate [Right Radial] Respiratory Rate 18 16 Blood Pressure 176/85 H 162/76 H Pulse Oximetry 100 99 Oxygen Delivery 04/10/25 19:21 04/10/25 20:00 04/10/25 20:00 Temperature 98.1 F 98.1 F Pulse Rate 84 71 69 Pulse Rate [Right Radial] Respiratory Rate 16 21 H Blood Pressure 152/82 H 176/84 H Pulse Oximetry 97 99 Oxygen Delivery 04/10/25 21:30 04/10/25 22:00 04/10/25 22:16 Temperature Pulse Rate 77 69 Pulse Rate [Right Radial] Respiratory Rate 18 Blood Pressure Pulse Oximetry 97 Oxygen Delivery Room Air 04/11/25 00:00 04/11/25 00:00 04/11/25 01:24 Temperature 97.5 F L Pulse Rate 103 H 73 74 Pulse Rate [Right Radial] Respiratory Rate 20 18 Blood Pressure 178/95 H Pulse Oximetry 100 Oxygen Delivery 04/11/25 01:32 04/11/25 02:00 04/11/25 03:56 Temperature 97.6 F Pulse Rate 76 85 93 Pulse Rate [Right Radial] Respiratory Rate 18 16 Blood Pressure 158/79 H Pulse Oximetry 99 Oxygen Delivery 04/11/25 04:00 04/11/25 06:00 04/11/25 07:53 Temperature Pulse Rate 79 79 82 Pulse Rate [Right Radial] Respiratory Rate 17 Blood Pressure Pulse Oximetry Oxygen Delivery 04/11/25 07:58 04/11/25 08:00 04/11/25 08:00 Temperature Pulse Rate 73 102 H Pulse Rate [Right Radial] Respiratory Rate 17 Blood Pressure Pulse Oximetry Oxygen Delivery Room Air 04/11/25 08:10 04/11/25 09:41 04/11/25 11:32 Temperature 97.6 F Pulse Rate 81 88 Pulse Rate [Right Radial] Respiratory Rate 18 Blood Pressure 160/91 H Pulse Oximetry 99 Oxygen Delivery Room Air 04/11/25 12:00 04/11/25 12:00 04/11/25 13:57 Temperature 97.5 F L Pulse Rate 93 80 78 Pulse Rate [Right Radial] Respiratory Rate 13 Blood Pressure 136/87 Pulse Oximetry 99 Oxygen Delivery Intake/Output Intake/Output: Intake & Output 04/08/25 04/09/25 04/10/25 04/11/25 23:59 23:59 23:59 23:59 Intake Total 1100 2800 2566.6 1650 Output Total 1100 2325 1250 Balance 1100 1700 241.6 400 Meds/Results Medications: Active Medications Generic Name Dose Route Start Last Admin Trade Name Freq PRN Reason Stop Dose Admin Acetaminophen 650 mg 04/10/25 16:40 04/11/25 08:41 Acetaminophen 325 Mg Tablet PO 650 mg Q6H PRN Administration Mild Pain (1-3) or Fever Albuterol/Ipratropium 3 ml 04/09/25 02:00 04/11/25 07:52 Ipratropium 0.5 Mg/Albuterol Sulfate 2.5 Mg (Base) Ampul.Neb 3 Ml INHALATION 3 ml Q6HRT TERRENCE Administration Atorvastatin Calcium 20 mg 04/09/25 21:00 04/10/25 20:31 Atorvastatin 20 Mg Tablet PO 20 mg HS TERRENCE Administration Famotidine 20 mg 04/09/25 09:00 04/11/25 08:34 Famotidine 20 Mg/2 Ml Vial IV PUSH 20 mg Q12HR TERRENCE Administration Hydralazine HCl 10 mg 04/08/25 21:07 04/11/25 00:08 Hydralazine Hcl 20 Mg/Ml Vial IV PUSH 10 mg Q8H PRN Administration Blood Pressure - High Cefepime HCl 2 gm/ Sodium 50 mls @ 100 mls/hr 04/09/25 09:00 04/11/25 08:35 Chloride IVPB 100 mls/hr Q12HR TERRENCE Administration Doxycycline Hyclate 100 mg/ 100 mls @ 100 mls/hr 04/09/25 09:00 04/11/25 08:35 Sodium Chloride IVPB 04/13/25 09:59 100 mls/hr Q12H TERRENCE Administration Sodium Chloride 50 mls @ 50 mls/hr 04/11/25 09:00 04/11/25 10:03 Normal Saline Iv IVPB 04/13/25 09:59 50 mls/hr Q12HR TERRENCE Administration Pantoprazole Sodium 40 mg 04/09/25 21:00 04/11/25 08:34 Pantoprazole 40 Mg Tablet PO 40 mg Q12HR TERRENCE Administration Perflutren Lipid Microsphere 0 ml 04/08/25 18:42 Perflutren Lipid Microspheres 1.5 Ml Vial Diluted To 10 Ml Total Volume IV PUSH 04/11/25 18:42 ONCE PRN adequate visualization Protocol Radiology Results: ITS Impressions Chest X-Ray 04/08/25 16:55 IMPRESSION: No acute pulmonary findings. Chest/Abdomen/Pelvis CTA 04/08/25 17:48 IMPRESSION: 1. Negative for pulmonary embolism. Probable bilateral bronchopneumonia superimposed on chronic lung disease. There are micronodules detailed above which are probably infectious, underlying neoplasm is not excluded and follow-up is warranted to ensure stability or resolution. 2. No acute intra-abdominal process. Incidental findings above Labs Labs: Laboratory Results - last 24 hr 04/11/25 04:32 WBC 7.9 RBC 4.17 L Hgb 12.8 Hct 39.2 MCV 94.0 MCH 30.7 MCHC 32.7 RDW 13.1 Plt Count 170 MPV 10.4 Sodium 138 Potassium 3.5 Chloride 109 H Carbon Dioxide 22 Anion Gap 7 BUN 11 D Creatinine 0.91 Estim Creat Clear Calc 50 Estimated GFR > 60 Glucose 95 Calcium 8.8 Magnesium 1.9
--- NOTE | 2025-04-11 15:23 | PC.NURSE ---
Cardiac cath R arm board removed. Site assessed with no drainage or hematoma. Radial pulse checked. Pt was verbally told instructions on how to care for the site and limitations that apply. Pt verbalizes understanding
--- NOTE | 2025-04-11 17:28 | PC.NURSE ---
On 04/11/25, the student, [Jeanna Chirinos ], provided care and completed [facility] documentation on this patient. I have reviewed the student's documentation and agree with the findings.
--- NOTE | 2025-04-11 18:25 | PC.NURSE ---
pt transferred to room [id number] from [facility]. pt oriented to room.
[2025-04-11] MEDS: ATORVASTATIN 20 MG TABLET PO (20:47)
[2025-04-12] MEDS: LOSARTAN POTASSIUM 50 MG TABLET PO (00:05)
[2025-04-12 02:20] VITALS: PULSE 90; RESP 16
[2025-04-12] MEDS: IPRATROPIUM 0.5 MG/ALBUTEROL SULFATE 2.5 MG (BASE) AMPUL.NEB 3 ML INHALATION (02:20)
[2025-04-12 02:26] VITALS: PULSE 88; RESP 16
[2025-04-12 06:13] LABS: Hematocrit 42.4 % (37.0-47.0); Hemoglobin 14.1 g/dL (12.0-15.0); Mean Corpuscular HGB Conc 33.3 g/dl (32-36); Mean Corpuscular Hemoglobin 30.9 pg (26-34); Mean Corpuscular Volume 92.8 fl (80-100); Platelet Count Result 173 k/mm3 (150-375); Red Blood Count 4.57 M/mm3 (4.2-5.4); White Blood Count 8.2 K/mm3 (4.5-10.0)
[2025-04-12 06:28] LABS: Anion Gap 8 mmol/L (4-12); Blood Urea Nitrogen 12 mg/dL (7-17); Calcium 9.4 mg/dL (8.4-10.2); Carbon Dioxide 24 mmol/L (22-30); Chloride 105 mmol/L (98-107); Estimated CRCL calculation 44 ml/min; Estimated Glomerular Filt Rate 58; Glucose 88 mg/dL (65-110); Magnesium 2.2 mg/dL (1.6-2.3); Potassium 3.9 mmol/L (3.4-5.0); Sodium 137 mmol/L (137-145)
[2025-04-12 06:55] VITALS: BP 140/80; PULSE 84; RESP 16; TEMP 36.7; O2SAT 98
[2025-04-12] MEDS: PANTOPRAZOLE 40 MG TABLET PO (09:32)
[2025-04-12] MEDS: CEFEPIME 2 GM in SODIUM CHLORIDE 0.9% IV 50 ML 100 ML IVPB (09:32)
[2025-04-12] MEDS: LOSARTAN POTASSIUM 100 MG TABLET PO (09:39)
[2025-04-12] MEDS: DOXYCYCLINE IV 100 MG in SODIUM CHLORIDE 0.9% IV 100 ML IVPB (09:40)
[2025-04-12] MEDS: SODIUM CHLORIDE 0.9% IV 50 ML IVPB (09:41)
[2025-04-12] MEDS: FAMOTIDINE 20 MG/2 ML VIAL IV PUSH (09:44)
[2025-04-12 10:13] LABS: IFOB Positive Control Positive; Immunochemical Fecal Occult Bl Negative (N)
--- NOTE | 2025-04-12 11:51 | P.DS_ITS ---
DS: Admitting Diagnosis Discharge Date 04/12/2025 Admitting Diagnosis Melena DS: Discharge Diagnosis Discharge Diagnosis (1) Pneumonia: Code(s): J18.9 - Pneumonia, unspecified organism Status: Acute (2) Cardiac enzymes elevated: Code(s): R74.8 - Abnormal levels of other serum enzymes Status: Acute (3) Acute kidney injury: Code(s): N17.9 - Acute kidney failure, unspecified Status: Acute (4) HTN (hypertension) with goal to be determined: Code(s): I10 - Essential (primary) hypertension Status: Acute (5) Hyperlipidemia: Code(s): E78.5 - Hyperlipidemia, unspecified Status: Acute (6) Squamous cell carcinoma of lung, stage I: Code(s): C34.90 - Malignant neoplasm of unspecified part of unspecified bronchus or lung Status: Acute (7) COPD (chronic obstructive pulmonary disease): Code(s): J44.9 - Chronic obstructive pulmonary disease, unspecified Status: Acute DS: Summary Hospital Course Hospital Course: This is a 59-year-old female patient who has stage I lung cancer with completed radiation treatment, tobacco abuse, and COPD. She presented to the emergency department with nausea and vomiting with black tarry stools and shortness of breath. She stated that this has been ongoing for approximately 2 days. She is not on any blood thinners and has had no change in her medication. She stated that she completed radiation treatment approximately January of this year. Today she had a large bowel movement that was dark and tarry. She has been short of breath for 2 days but denies any chest pressure. Her white count was noted to b e 11.1. H and H is 17.3 and 50.7. Her sodium is 136 and she has an anion gap of 15. BUN is 17 with a creatinine of 1.35. GFR is 40. The initial troponin was found to be 0.753 with a 3 hour troponin of 0.552. Chest x-ray was read as no acute cardiopulmonary findings. Chest abdomen pelvis CTA was read as the followingNegative for pulmonary embolism. Probable bilateral bronchopneumonia superimposed on chronic lung disease. There are micronodules detailed above which are probably infectious, underlying neoplasm is not excluded and follow-up is warranted to ensure stability or resolution. 2. No acute intra-abdominal process. Incidental findings above. She was started on vancomycin, cefepime, magnesium, and normal saline in the emergency room. EKG with no acute ST-T changes. Echo showed EF of 65-70% no regional wall motion abnormality. History of coronary artery disease status post stents Elevated troponin. Trend 0.753-0.55 2-0.43 3-0.182. She Underwent cardiac catheterization which showed mild nonobstructive coronary artery disease with mild plaque in proximal mid LAD. Normal LV systolic function. Melena status post EGD with gastritis and duodenitis small gastric ulcers with no active bleeding. Ppi b.i.d. repeat EGD in 4 months to assess healing. HTN: on losartan. add metoprolol at discharge. Pneumonia as noted on the CTA. Currently treated with cefepime and doxycycline. Switched to oral at discharge and complete the course. COPD Stage I lung cancer status post radiation treatment Tobacco abuse DVT prophylaxis SCDs Code status full code Time Spent with Patient Time attestation: Total time spent providing and/or coordinating discharge services: 40 minutes Exam Narrative: GENERAL: The patient is well developed, not in acute distress HEENT: Nonicteric sclerae, PERRLA, EOMI. Oropharynx clear. Moist mucous membranes. Conjunctivae appear well perfused. CHEST: Chest wall is nontender. HEART: Regular rate and rhythm without murmur, rubs, or gallops LUNGS: Clear to auscultation bilaterally. no respiratory distress ABDOMEN: Soft, positive bowel sounds, non-tender, no organomegaly. SKIN: No rash, no excessive bruising, petechiae, or purpura. NEUROLOGIC: Cranial nerves II-XII intact, alert and oriented x 3, no gross motor deficits EXTREMITIES: no edema, cyanosis or clubbing DS: Data Data Completed and Pending Completed studies during hospitalization: Exam Type: CA echo doppler color flow Complete two-dimensional, color flow and Doppler transthoracic echocardiogram is performed. Staff Referring Physician: Kirill Tan Courtesy Clerk: Neal Jerez III Attending Provider: Kendall Vargas MD Summary 1. Complete two-dimensional, color flow and Doppler transthoracic echocardiogram is performed. 2. The left ventricle is normal in size and systolic function. The left ventricular ejection fraction is visually estimated to be 65-70%. There are no regional wall motion abnormalities. 3. The right ventricle is normal in size and systolic function. 4. Aortic valve leaflets are not well visualized. There was no echocardiographic evidence of hemodynamically significant aortic stenosis. 5. The pericardium is not well visualized. Left Ventricle The left ventricle is normal in size and systolic function. The left ventricular ejection fraction is visually estimated to be 65-70%. There are no regional wall motion abnormalities. Right Ventricle The right ventricle is normal in size and systolic function. Left Atria The left atrium is normal size. Right Atria The right atrium is normal size. Atrial Septum The atrial septum is not well visualized. Aortic Valve Aortic valve leaflets are not well visualized. There was no echocardiographic evidence of hemodynamically significant aortic stenosis. Pulmonic Valve The pulmonic valve is not well visualized. Mitral Valve The mitral valve leaflets are thickened but open well. There is trace mitral regurgitation. Tricuspid Valve The tricuspid valve is normal. There is trace tricuspid regurgitation. Pericardium/Pleural The pericardium is not well visualized. Inferior Vena Cava Normal inferior vena cava with >50% collapse upon inspiration consistent with normal right atrial pressure, 3 mmHg. Aorta The aortic root at the level of sinus of Valsalva measures 2.6 cm in diameter. Pending studies at discharge: Pending at discharge 04/09/25 15:05 Surgical [PTH] Routine Labs on day of discharge: Labs from last 24 hours 04/12/25 04/12/25 09:36 05:36 WBC 8.2 RBC 4.57 Hgb 14.1 Hct 42.4 MCV 92.8 MCH 30.9 MCHC 33.3 RDW 13.2 Plt Count 173 MPV 10.5 H Sodium 137 Potassium 3.9 Chloride 105 Carbon Dioxide 24 Anion Gap 8 BUN 12 Creatinine 0.97 Estim Creat Clear Calc 44 Estimated GFR 58 L Glucose 88 Calcium 9.4 Magnesium 2.2 Stl Occult Blood (IFOB) Negative Preliminary micro results at discharge 04/08/25 19:03 Blood Culture - Preliminary Blood 04/08/25 19:21 Blood Culture - Preliminary Blood Procedures/Treatments: Cardiac Cath Procedure Note Date of procedure:: 04/10/25 Performing physician:: Luis Morataya MD Procedure Procedure performed:: LEFT HEART CATHETERIZATION AND CORONARY ANGIOGRAM REPORT DATE OF PROCEDURE: 04/10/2025 INDICATION FOR PROCEDURE: Chest pain, minimal troponin elevation BRIEF CLINICAL HISTORY: 59-year-old female with hypertension, peripheral artery disease, COPD, lung cancer status post radiation, tobacco abuse. Patient reported that she usually gets her cardiovascular care at [facility]. She presented to [facility] Emergency Room on 04/09/2025 with complaints of chest discomfort and hematochezia. EKG did not show any acute ST segment abnormality. Serial troponins were minimally elevated. Patient underwent Gastroenterology evaluation and her EGD reportedly showed gastritis and duodenitis. Patient was concerned about her symptoms of chest discomfort. Patient did not have any active GI bleeding hospitalization and her hemoglobin remained stable. After discussion with the patient, she was eager to proceed with cardiac catheterization to evaluate her coronary anatomy. Benefits and risks of the procedure were discussed with the patient in depth, and informed consent was obtained prior to the procedure. Risks of the procedure include but are not limited to vascular complications including groin hematoma, retroperitoneal bleed, vessel perforation; periprocedural RI, cardiac arrhythmias, stroke, contrast induced nephropathy, and . After discussing all the benefits, risks and alternatives, patient was willing to proceed with the procedure. PROCEDURES PERFORMED: 1. Left heart catheterization- Selective left and right coronary angiogram; left ventriculogram and hemodynamic assessment 2. Ultrasound-guided right radial artery access 3. Moderate sedation-CPT code 19027 MODERATE SEDATION: Midazolam 2 mg; fentanyl 75 mcg; Start time 1016 , Stop time 1038 ; Total [id number] time 16 minutes; Moriah Hayward RN was trained observer for moderate sedation. ACCESS SITE: Right radial artery PROCEDURE NOTE: After obtaining informed consent, patient was brought to catheterization lab and prepped and draped in a usual sterile manner. After local anesthesia with lidocaine, right radial artery access was taken with micropuncture needle under ultrasound guidance followed by insertion of a 6 Bangladeshi sheath. Patient received 2.5 mg of verapamil, 200 mcg of nitroglycerin through the arterial sheath; and 5000 units of unfractionated heparin IV. Selective left and right coronary angiogram was performed using 5 Bangladeshi JL3.5 and JR4 catheters respectively. Orthogonal views were taken. JR4 catheter was advanced in the LV cavity. The catheter was flushed, and LV pressure measurements were performed. After this, LV gram was performed using minimal dye. The gradient across the aortic valve was measured on the pullback of the catheter. Finally, radial band was applied for local hemostasis. Patient tolerated procedure well without any immediate procedure related complications. FINDINGS: LEFT MAIN CORONARY: The left main coronary artery is very short vessel, or possibly there are 2 separate ostia for LAD and left circumflex arteries. No significant dampening of the pressures and good reflux of contrast was seen. LEFT ANTERIOR DESCENDING ARTERY: Lad is a medium caliber vessel, tapers distally and reaches LV apex. There is mild narrowing at the ostium. 30-40% diffuse stenosis seen in the mid segment. No segment stenosis in the smaller caliber diagonal branches. LEFT CIRCUMFLEX ARTERY: The left circumflex artery either arises from a very short left main coronary artery or has its own separate ostium. The vessel is a medium caliber vessel with mild plaque in the proximal segment. Vessel gives rise to medium caliber OM branch which trifurcates into 3 branches. No segment focal stenosis is seen. The main LCX is a small caliber vessel with mild plaque and continues in the AV groove. RIGHT CORONARY ARTERY: Medium caliber vessel with mild plaque in the proximal segment. Vessel gives rise to small to medium caliber PDA and PLV branches. No significant focal stenosis. LEFT VENTRICULOGRAM: Normal LV systolic function, ejection fraction about 60%. LVEDP 13 mmHg. HEMODYNAMIC ASSESSMENT: Opening pressure 160/76 mmHg, closing pressure 148/87 mmHg, LVEDP 13 , no significant gradient across aortic valve on the pullback of pigtail catheter. CONCLUSIONS: 1. Mild nonobstructive CAD with mild plaque in the proximal-mid LAD. 2. Normal LV systolic function, ejection fraction about 60%. LVEDP 13 mmHg. 3. Systemic hypertension. PLAN/RECOMMENDATIONS: Optimal medical treatment and risk factor modification including optimal blood pressure control and complete smoking cessation. Outpatient Cardiology follow-up for long-term cardiac care. Imaging Radiologist's impression: ITS Impressions Chest X-Ray 04/08/25 16:55 IMPRESSION: No acute pulmonary findings. Chest/Abdomen/Pelvis CTA 04/08/25 17:48 IMPRESSION: 1. Negative for pulmonary embolism. Probable bilateral bronchopneumonia superimposed on chronic lung disease. There are micronodules detailed above which are probably infectious, underlying neoplasm is not excluded and follow-up is warranted to ensure stability or resolution. 2. No acute intra-abdominal process. Incidental findings above Discharge Plan Discharge Attending physician on discharge: Dimas Middleton Consulting providers: Kenji Angulo; Huang Oscar Discharging Clinician: Dimas Middleton Anticipated Discharge Date/Time: 04/12/25 11:53 Patient Disposition: Home Activity: as tolerated Diet: heart healthy Discharge Instructions: [facility] [address] [place] [address] DISCHARGE INSTRUCTIONS - POST RADIAL CATH Activity 1. No driving for 24 hours. 2. No lifting more than 5 lb with affected arm for 1 week. 3. May shower ( tomorrow) but no excessive soaking of affected hand/wrist (such as washing dishes), swimming pool or hot tub for 5 days. Wound Care 1. May remove arm board in the morning. 2. May remove gauze dressing in the morning and put Band-Aid over affected radial site. Keep site covered for 3 days. 3. Observe for redness, drainage, swelling or bleeding. Medications DO NOT STOP YOUR MEDICATIONS ONLY YOUR CHEMIST WATER PURIFICATION CAN STOP THE FOLLOWING MEDICATIONS - PLEASE CALL THE OFFICE WITH QUESTIONS. *Aspirin *Ticagrelor (Brilinta) *Atorvastatin *Lisinopril or ARB *Metoprolol tartrate or succinate *Clopidogrel (Plavix) *Prasugrel (Effient) Important Reminders 1. Keep your stent card in your wallet at all times 2. Follow a heart healthy diet paying extra attention to cholesterol and fats. 3. Stay hydrated. 4. If you have chest pain unrelieved by rest or nitroglycerin (if prescribed) call 911 immediately. 5. If you miss one dose of Brilinta (if prescribed) take a tablet at the next time due. If you miss 2 doses take a tablet when you remember and resume at the next time due. *For any other questions please call the office at [phone]. Office hours are 8AM 4:30PM Sunday through Sunday. Patient Instructions: Antibiotic Form, Heart Failure (GEN), How to Stop Smoking (ED) Patient Language: Mauritanian Stand Alone Forms: General Discharge Information Follow-up/Referrals: PHYSICIAN,SWEEPER BR[employer] MAKER MACHINE [Primary Care Provider, Internal Medicine] - 1 Week Discharge Medications: New doxycycline hyclate 100 mg capsule 100 mg PO Q12H Qty: 8 0RF metoprolol succinate 25 mg tablet extended release 24 hr 25 mg PO DAILY Qty: 30 0RF pantoprazole 40 mg Tablet,Delayed Release (Dr/Ec) 40 mg PO Q12HR Qty: 60 0RF cefdinir 300 mg capsule 300 mg PO Q12H Qty: 8 0RF Continued atorvastatin 20 mg tablet 20 mg PO HS losartan 100 mg tablet 100 mg PO DAILY Date of admission: 04/08/25 18:42 Primary Care Provider: PHYSICIAN,SWEE[employer] BR[employer] MACHINE Admitting Provider: Kendall Vargas Attending physician on admission: Kendall Vargas Condition: Stable
== END 2025-04-12 14:18 | disposition home or self-care (01) | DRG 377 ==
LOC: ANHED 16:52 → ANHIMU 19:27 → ANH3MEDSUR 04-12 11:54 → ANHIMU 04-14 16:09
PROVIDERS: Internal Medicine Cardiovascular Disease; Internal Medicine Gastroenterology; Nurse Practitioner; Admitting Provider Family Medicine; Emergency Provider Student in an Organized Health Care Education/Training Program; PCP Emergency Medicine; Visit Provider Internal Medicine
PROC: 0DJ08ZZ Inspection of Upper Intestinal Tract, Via Natural or Artificial Opening Endoscopic (ICD-10-PCS; principal; 2025-04-09 17:00)
PROC: 4A023N7 Measurement of Cardiac Sampling and Pressure, Left Heart, Percutaneous Approach (ICD-10-PCS; CPT 93452; principal; 2025-04-10 10:00)
DX: K92.1 Melena (principal); J18.0 Bronchopneumonia, unspecified organism; C34.90 Malignant neoplasm of unspecified part of unspecified bronchus or lung; N17.9 Acute kidney failure, unspecified; I25.10 Atherosclerotic heart disease of native coronary artery without angina pectoris; E86.0 Dehydration; E78.5 Hyperlipidemia, unspecified; F17.210 Nicotine dependence, cigarettes, uncomplicated; I10 Essential (primary) hypertension; J44.9 Chronic obstructive pulmonary disease, unspecified; K29.80 Duodenitis without bleeding; K29.70 Gastritis, unspecified, without bleeding; K21.9 Gastro-esophageal reflux disease without esophagitis; M81.0 Age-related osteoporosis without current pathological fracture; R74.8 Abnormal levels of other serum enzymes; Z95.5 Presence of coronary angioplasty implant and graft; Z79.82 Long term (current) use of aspirin; Z92.3 Personal history of irradiation
CPT/HCPCS: 36415; 71045; 71275; 74177; 80048; 80053; 82274; 83605; 83615; 83690; 83735; 83880; 84484; 84550; 85025; 85027; 85610; 85730; 87040; 87070; 87081; 87205; 87449; 87641; 88305; 93005; 93306; 93458; 94640; 96361; 96365; 99285; A9270; C1769; C1887; C1894; J0360; J0692; J1644; J2003; J2250; J2305; J2704; J3010; J3373; J3475; J7030; J7040; J7120; Q9967

== ENCOUNTER 2025-05-03 15:32 | Emergency (ER) | payer MEDICARE, SELFPAY ==
--- NOTE | ~2025-05-03 | CT_ITS ---
Moriah Brown EXAMINATION: CT abdomen pelvis w con COMPARISON: None HISTORY: abd pain, hematuria TECHNIQUE: Axial images were obtained through the abdomen, pelvis post administration of IV contrast. Oral contrast was also administered. Coronal reconstruction images were obtained from the axial views. CT scan performed using dose optimization techniques including the following automated exposure control; adjustment of mA and/or kV; use of iterative reconstruction technique. Automatic exposure control was used to reduce radiation dose. Permanent radiation dose record is archived to PACS. FINDINGS: CT abdomen: LUNG BASES: The lung bases demonstrate multiple micronodules left lower lobe the largest 1.1 x 1 cm some of these demonstrate a tree-in-bud distribution and may be infectious however neoplasm is not excluded, dedicated chest CT is recommended. LIVER: Minimal hepatic steatosis. The main portal vein is patent. No intrahepatic biliary duct dilatation. SPLEEN: Punctate calcified splenic granulomas.. KIDNEYS: Right Kidney: Unremarkable. No calculi. No hydronephrosis. Left Kidney: The left kidney is atrophic. ADRENAL GLANDS: Unremarkable. PANCREAS: Unremarkable. GALLBLADDER/BILIARY: Unremarkable. No biliary dilatation. STOMACH AND ESOPHAGUS: There is hyperemia of the gastric mucosa. BOWEL/MESENTERY: Moderate fecal content, nonspecific fluid-filled loops of large bowel. Appendix normal. Mesentery normal. Small bowel normal. No dilated small bowel loops. ADENOPATHY/RETROPERITONEUM: No lymphadenopathy. AORTA/VASCULATURE: Dense calcified atherosclerotic changes noted of the aorta and its branches, no aneurysm. FREE FLUID OR FREE AIR: No free fluid.. CT pelvis: SOLID ORGANS/REPRODUCTIVE: Post hysterectomy. No adnexal mass. BLADDER: Mild hyperemia of the bladder mucosa. OSSEOUS STRUCTURES: Postsurgical changes lumbar spine. No sclerotic or lytic lesions. OVERLYING SOFT TISSUES: Unremarkable. IMPRESSION: 1. Probable cystitis. Incidental findings detailed above. Findings in the left lung bases may be infectious however neoplasm is not excluded. CT chest with contrast recommended to assess Reviewed, dictated and finalized at location P. ETISER OPERATOR IMPRESSION: 1. Probable cystitis. Incidental findings detailed above. Findings in the left lung bases may be infectious however neoplasm is not excluded. CT chest with co ntrast recommended to assess
[2025-05-03 16:07] LABS: Hematocrit 42.6 % (37.0-47.0); Hemoglobin 14.1 g/dL (12.0-15.0); Immature Granulocyte Percent A 0.4 % (0-0.5); Lymphocytes Absolute Auto 1.68 K/mm3 (0.9-3.2); Mean Corpuscular HGB Conc 33.1 g/dl (32-36); Mean Corpuscular Hemoglobin 30.6 pg (26-34); Mean Corpuscular Volume 92.4 fl (80-100); Nucleated Red Blood Cells Absolute Auto 0.000 K/mm3 (0.0-0.012); Nucleated Red Blood Cells Perc 0.0 % (0.0-0.2); Platelet Count Result 186 k/mm3 (150-375); Red Blood Count 4.61 M/mm3 (4.2-5.4); White Blood Count 15.1 K/mm3 (4.5-10.0)
--- NOTE | 2025-05-03 16:16 | ED.ABDPAIN ---
HPI - Abdominal Pain General Chief Complaint: Abdominal Pain Stated Complaint: abdominal pain, hematuria Time Seen by Provider: 05/03/25 15:41 Source: patient Mode of arrival: ambulatory Limitations: no limitations History of Present Illness HPI narrative: This is a 60 year old female that presents to the ER for abdominal pain. Ongoing since this morning. Reports associated hematuria, nausea and vomiting. Denies fevers. Related Data Home Medications ?Medication ?Instructions ?Recorded ?Confirmed ?Last Taken ?Type atorvastatin 20 mg tablet 20 mg PO HS 06/26/19 04/08/25 04/07/25 History losartan 100 mg tablet 100 mg PO DAILY 04/08/25 04/08/25 04/08/25 History Allergies Allergy/AdvReac Type Severity Reaction Status Date / Time No Known Allergies Allergy Verified 04/09/25 14:08 Review of Systems Review of Systems: All systems reviewed & are unremarkable except as noted in HPI and below PMFSH Past Medical History Medical History (Updated 05/03/25 @ 19:28 by Chen Li PA-C) Gastric ulceration Nausea and vomiting in adult Melena Squamous cell carcinoma of lung, stage I /radiation completed Chronic GERD HTN (hypertension) with goal to be determined Hyperlipidemia Osteoporosis Liver failure Hepatitis C COPD (chronic obstructive pulmonary disease) Surgical History Surgical History H/O neck surgery History of back surgery History of orthopedic surgery removal of 3 lt ribs History of hysterectomy S/P insertion of iliac artery stent bilateral iliac stents placed Social History Social History Social History: She continues to work part work at a [employer]. She has no children and lives with her mother. She stated she is down to half a pack a cigarettes a day. She does not have a power of corporate attorney for healthcare. Code status: Full code Smoking packs per day: 0.5 Smoking cigarettes per day: 10.0 Years smoked: 45 Smoking pack-years: 22.50 Tobacco type: cigarettes Alcohol intake: former Substance use: unknown Substance use type: does not use Lack of Transportation: No Lack of Food: Never True Current Housing: I Have Housing Concerned About Future Housing: No Difficulty Paying Gas/Electric Bills: No Difficulty Paying for Meds: No Currently Unemployed: No Education: High School Diploma/GED Difficulty w/ Childcare or Family Care: No Gender identity (if verbalized by the patient): Female Spiritual care concerns: No Exam Narrative: GENERAL: Well-appearing, well-nourished, and in no acute distress. HEAD: Normocephalic, atraumatic. EYES: EOMI. CHEST: Clear to auscultation. No respiratory distress. No wheezes rales or rhonchi HEART: Regular rate and rhythm. No murmur heard. Normal peripheral pulses. ABDOMEN: Soft, nontender, nondistended, normal active bowel sounds. EXTREMITIES: Normal range of motion. No edema. SKIN: Warm, dry, no rash. NEURO: No focal deficits. Alert and oriented x3. PSYCH: Normal mood and affect Course Vital Signs Vital signs: Vital Signs Pulse Rate 81 05/03/25 16:33 Respiratory Rate 18 05/03/25 16:33 Blood Pressure 151/71 H 05/03/25 16:33 Pulse Oximetry 92 05/03/25 16:33 Pulse Rate 84 05/03/25 18:33 Respiratory Rate 16 05/03/25 18:33 Blood Pressure 162/83 H 05/03/25 18:33 Pulse Oximetry 96 05/03/25 18:33 MDM - Abdominal Pain MDM Narrative Medical decision making narrative: Patient presents to the emergency department for abdominal pain, hematuria. She is afebrile and nontoxic appearing. CBC with leukocytosis 15.1. Metabolic panel with normal kidney function. Urine with red blood cells, leuk esterase. CT abdomen pelvis showing cystitis. Nodule in the left lung base. Patient updated on workup agrees with plan of care. Given 1st dose of antibiotics IV in the ER. Will be continued on oral antibiotics. She is to follow up with her provider. She was given warnings to return to the ER Differential Diagnosis Differential diagnosis: Likely calculus of kidney and other (uti) Lab Data Attestation: I reviewed the patient's lab results. 05/03/25 16:02 05/03/25 16:02 Labs: Lab Results 05/03/25 05/03/25 Range/Units 16:02 17:58 WBC 15.1 H (4.5-10.0) K/mm3 RBC 4.61 (4.2-5.4) M/mm3 Hgb 14.1 (12.0-15.0) g/dL Hct 42.6 (37.0-47.0) % MCV 92.4 (80-100) fl MCH 30.6 (26-34) pg MCHC 33.1 (32-36) g/dl RDW 13.4 (11.5-14.5) % Plt Count 186 (150-375) k/mm3 MPV 10.3 (7.4-10.4) fl Immature Gran % (Auto) 0.4 (0-0.5) % Neut % (Auto) 79.3 H (45.5-73.1) % Lymph % (Auto) 11.1 L (18.3-44.2) % [place] % (Auto) 7.6 (2.6-8.5) % Eos % (Auto) 1.1 (0-4.4) % Baso % (Auto) 0.5 (0.2-1.2) % Lymph # (Auto) 1.68 (0.9-3.2) K/mm3 [place] # (Auto) 1.2 H (0.1-0.6) K/mm3 Eos # (Auto) 0.2 (0-0.3) K/mm3 Baso # (Auto) 0.1 (0.0-0.1) K/mm3 Abs Immat Gran (auto) 0.06 H (0.00-0.031) K/mm3 Absolute Neuts (auto) 12.0 H (1.3-6.7) K/mm3 Absolute Nucleated RBC 0.000 (0.0-0.012) K/mm3 Nucleated RBC % 0.0 (0.0-0.2) % Sodium 135 L (137-145) mmol/L Potassium 3.6 (3.4-5.0) mmol/L Chloride 102 (98-107) mmol/L Carbon Dioxide 24 (22-30) mmol/L Anion Gap 9 (4-12) mmol/L BUN 14 (7-17) mg/dL Creatinine 1.00 (0.7-1.0) mg/dL Estim Creat Clear Calc Not Reportable Estimated GFR 56 L (59 - ) Glucose 112 H (65-110) mg/dL Calcium 9.6 (8.4-10.2) mg/dL Total Bilirubin 1.3 (0.2-1.3) mg/dL AST 23 (14-36) U/L ALT 19 (6-35) U/L Alkaline Phosphatase 94 (38-126) U/L Total Protein 7.8 (6.3-8.2) g/dL Albumin 4.6 (3.5-5.1) g/dL Lipase 64 (23-300) U/L Urine Color Red H (Yellow) Urine Appearance Turbid H (Clear) Urine pH 8.5 (5.0-9.0) Ur Specific [employer] 1.010 (1.001-1.035) Urine Protein 2+ H (Negative) mg/dL Urine Glucose (UA) Negative (Negative) mg/dL Urine Ketones Negative (Negative) mg/dL Ur Blood (Man) 4+ H (Negative) Urine Nitrate Negative (Negative) Urine Bilirubin Negative (Negative) Urine Urobilinogen 0.2 (<2.0) mg/dL Leukocyte Esterase Rfl 1+ H (Negative) TROY/UL Urine RBC >100 H (0-2) /hpf Urine WBC Unable to determine (0-3) /hpf Imaging Data Radiologist's impression: ITS Impressions Abdomen/Pelvis CT 05/03/25 17:09 IMPRESSION: 1. Probable cystitis. Incidental findings detailed above. Findings in the left lung bases may be infectious however neoplasm is not excluded. CT chest with contrast recommended to assess Critical Care Time Critical Care Time Critical Care Time: No Discharge Plan Discharge Clinical Impression: Acute UTI, Pulmonary nodule Patient Disposition: Home Condition: Stable Instructions: Antibiotic Form, Urinary Tract Infection in Women (ED) Additional Instructions: Return to the ER if you experience fever, abdominal pain with nausea and vomiting, you are unable to keep down liquids or solids, or any other symptoms that are concerning to you Remain well hydrated. Take oral antibiotic as prescribed Follow up with primary care doctor The radiologist is seeing some pulmonary nodules in the bottom of your left lung. I would like you to follow up with your cancer specialist as well Patient Language: Turkish Prescriptions: New cefdinir 300 mg capsule 300 mg PO Q12H 7 Days Qty: 14 0RF No Action atorvastatin 20 mg tablet 20 mg PO HS losartan 100 mg tablet 100 mg PO DAILY pantoprazole 40 mg Tablet,Delayed Release (Dr/Ec) 40 mg PO Q12HR Qty: 60 0RF cefdinir 300 mg capsule 300 mg PO Q12H Qty: 8 0RF doxycycline hyclate 100 mg capsule 100 mg PO Q12H Qty: 8 0RF metoprolol succinate 25 mg tablet extended release 24 hr 25 mg PO DAILY Qty: 30 0RF Follow-up/Referrals: PHYSICIAN NOT ON STAFF,NONSTAFF [Primary Care Provider]
[2025-05-03 16:20] LABS: Alanine Aminotransferase 19 U/L (6-35); Albumin Level 4.6 g/dL (3.5-5.1); Alkaline Phosphatase 94 U/L (38-126); Anion Gap 9 mmol/L (4-12); Aspartate Amino Transferase 23 U/L (14-36); Bilirubin,Total 1.3 mg/dL (0.2-1.3); Blood Urea Nitrogen 14 mg/dL (7-17); Calcium 9.6 mg/dL (8.4-10.2); Carbon Dioxide 24 mmol/L (22-30); Chloride 102 mmol/L (98-107); Estimated Glomerular Filt Rate 56; Glucose 112 mg/dL (65-110); Lipase 64 U/L (23-300); Potassium 3.6 mmol/L (3.4-5.0); Sodium 135 mmol/L (137-145); Total Protein 7.8 g/dL (6.3-8.2)
[2025-05-03] MEDS: MORPHINE SULFATE (*CRX) 4 MG/ML INJ IV PUSH (16:26)
[2025-05-03] MEDS: ONDANSETRON INJ 4 MG/2 ML VIAL IV PUSH (16:26)
[2025-05-03 16:33] VITALS: BP 151/71; PULSE 81; RESP 18; O2SAT 92
[2025-05-03 17:11] VITALS: PULSE 81; RESP 16; O2SAT 95
[2025-05-03] MEDS: cefTRIAXone 1 GM in SODIUM CHLORIDE 0.9% IV 50 ML 100 ML IVPB (18:27)
[2025-05-03 18:33] VITALS: BP 162/83; PULSE 84; RESP 16; O2SAT 96
[2025-05-03 18:50] LABS: Appearance Urine Turbid (Clear)
[2025-05-03 18:54] LABS: Add Urine Microscopic? YES
[2025-05-03 19:13] LABS: Glucose Urine UA Negative (Negative); Nitrate Urine Negative (Negative); Specific Grav Ur 1.010 (1.001-1.035)
[2025-05-03 19:14] LABS: Leukocyte Esterase Ur 1+ LEU/UL (Negative)
[2025-05-03 19:24] VITALS: BP 122/78; PULSE 68; RESP 16; TEMP 36.8; O2SAT 98
[2025-05-03 19:33] VITALS: BP 118/71; PULSE 69; RESP 16; O2SAT 98
== END 2025-05-03 19:39 | disposition home or self-care (01) ==
PROVIDERS: Emergency Medicine; Emergency Provider Physician Assistant
DX: N39.0 Urinary tract infection, site not specified (principal); R91.8 Other nonspecific abnormal finding of lung field; I10 Essential (primary) hypertension; E78.5 Hyperlipidemia, unspecified; J44.9 Chronic obstructive pulmonary disease, unspecified; M81.0 Age-related osteoporosis without current pathological fracture; K21.9 Gastro-esophageal reflux disease without esophagitis; K72.90 Hepatic failure, unspecified without coma; F17.210 Nicotine dependence, cigarettes, uncomplicated; Z92.3 Personal history of irradiation; Z85.118 Personal history of other malignant neoplasm of bronchus and lung; Z90.710 Acquired absence of both cervix and uterus; Z79.899 Other long term (current) drug therapy
CPT/HCPCS: 36415; 74177; 80053; 81001; 83690; 85025; 87077; 87086; 87186; 96365; 96375; 99284; J0696; J2270; J2405; Q9967

== ENCOUNTER 2025-06-03 09:33 | Emergency (ER) | payer MEDICARE, SELFPAY ==
--- NOTE | ~2025-06-03 | CT_ITS ---
EXAMINATION: CT abdomen pelvis wo con DATE: 06/03/2025 14:02 INDICATION: Right flank pain. Nausea and vomiting. TECHNIQUE: Computed tomography (CT) of the abdomen and pelvis was performed without intravenous contrast. Automated exposure control and iterative reconstruction technique were employed. The dose-length product was 228.11 mGy-cm. COMPARISON: CT dated 05/03/2025, 04/08/2025 and 03/22/2022 FINDINGS: Mild emphysema. Significant improvement in the prior patchy airspace opacities in the left lower lobe consistent with improving pneumonia. No change in chronic tree-in-bud opacities in the right middle lobe and lingula most likely sequela prior infection or infarction. Visualized inferior heart is normal. No pericardial or pleural effusion. Liver, gallbladder, pancreas and bilateral adrenal glands are normal. Several splenic calcifications consistent with old granulomatous disease. Moderate to severe left renal atrophy which has progressed since 2021. Right kidney appears normal. No urolithiasis or hydronephrosis. Bowels including the appendix are normal. Bladder is normal. The uterus is not identified and has likely been surgically resected. No free intraperitoneal gas or fluid. There is calcified atherosclerosis of the aorta and many of the other arteries. Stenting at the bilateral common iliac arteries. No pathologically enlarged abdominal or pelvic lymphadenopathy. Postoperative changes in the lower lumbar spine with posterior decompression including right- sided facetectomy is at L4-L5 and L5-S1 and L4-S1 instrumented anterior and posterior spinal fusion with interbody fusion devices at both levels and bilateral vertical sheila and pedicle screw fixation. IMPRESSION: 1. No urolithiasis or acute intra-abdominal/pelvic process. Reviewed, dictated and finalized at location A. NTORY CLERK
[2025-06-03 09:45] VITALS: BP 171/94; PULSE 97; RESP 16; TEMP 36.6; O2SAT 95
[2025-06-03 11:45] VITALS: BP 160/94; PULSE 95; RESP 16; TEMP 37.1; O2SAT 97
[2025-06-03] MEDS: LACTATED RINGERS 1,000 ML 999 ML IV CONT (14:39)
[2025-06-03] MEDS: ONDANSETRON INJ 4 MG/2 ML VIAL IV PUSH (14:39)
[2025-06-03 14:46] LABS: Hematocrit 46.6 % (37.0-47.0); Hemoglobin 15.8 g/dL (12.0-15.0); Immature Granulocyte Percent A 0.5 % (0-0.5); Lymphocytes Absolute Auto 1.04 K/mm3 (0.9-3.2); Mean Corpuscular HGB Conc 33.9 g/dl (32-36); Mean Corpuscular Hemoglobin 31.3 pg (26-34); Mean Corpuscular Volume 92.5 fl (80-100); Nucleated Red Blood Cells Absolute Auto 0.000 K/mm3 (0.0-0.012); Nucleated Red Blood Cells Perc 0.0 % (0.0-0.2); Platelet Count Result 192 k/mm3 (150-375); Red Blood Count 5.04 M/mm3 (4.2-5.4); White Blood Count 17.7 K/mm3 (4.5-10.0)
[2025-06-03 14:52] LABS: Alanine Aminotransferase 16 U/L (6-35); Albumin Level 4.9 g/dL (3.5-5.1); Alkaline Phosphatase 113 U/L (38-126); Anion Gap 10 mmol/L (4-12); Aspartate Amino Transferase 22 U/L (14-36); Bilirubin,Total 1.2 mg/dL (0.2-1.3); Blood Urea Nitrogen 17 mg/dL (7-17); Calcium 10.3 mg/dL (8.4-10.2); Carbon Dioxide 23 mmol/L (22-30); Chloride 104 mmol/L (98-107); Estimated CRCL calculation 37 ml/min; Estimated Glomerular Filt Rate 47; Glucose 120 mg/dL (65-110); Lipase 35 U/L (23-300); Potassium 4.3 mmol/L (3.4-5.0); Sodium 137 mmol/L (137-145); Total Protein 8.8 g/dL (6.3-8.2)
[2025-06-03 15:10] LABS: Add Urine Microscopic? YES; Appearance Urine Turbid (Clear); Glucose Urine UA Negative (Negative); Leukocyte Esterase Ur 3+ LEU/UL (Negative); Need Manual Microscopic Reviewed; Nitrate Urine Positive (Negative); Specific Grav Ur 1.015 (1.001-1.035)
[2025-06-03] MEDS: cefTRIAXone 1 GM in SODIUM CHLORIDE 0.9% IV 50 ML 100 ML IVPB (15:35)
[2025-06-03] MEDS: SODIUM CHLORIDE 0.9% IV 1,000 ML 999 ML IV CONT (15:54)
--- NOTE | 2025-06-03 16:05 | ED_ITS ---
HPI - Female Genitourinary General Chief complaint: Abdominal Pain Stated complaint: right flank pain Time Seen by Provider: 06/03/25 14:06 History of Present Illness HPI Narrative: For last few days, patient has had dysuria, radiating to her right flank, with nausea vomiting, feels like a UTI, she had a recent 1 about a month ago. Related Data Home Medications ?Medication ?Instructions ?Recorded ?Confirmed ?Last Taken ?Type atorvastatin 20 mg tablet 20 mg PO HS 06/26/19 5 04/07/25 History losartan 100 mg tablet 100 mg PO DAILY 04/08/2504/08/25 History Allergies Allergy/AdvReac Type Severity Reaction Status Date / Time No Known Allergies Allergy Verified 06/03/25 09:34 Review of Systems 2 Review of Systems: All systems reviewed & are unremarkable except as noted in HPI and below PMFSH Past Medical History Medical History (Updated 06/03/25 @ 15:38 by Debbie Bodn MD) Gastric ulceration Nausea and vomiting in adult Melena Squamous cell carcinoma of lung, stage I /radiation completed Chronic GERD HTN (hypertension) with goal to be determined Hyperlipidemia Osteoporosis Liver failure Hepatitis C COPD (chronic obstructive pulmonary disease) Surgical History Surgical History H/O neck surgery History of back surgery History of orthopedic surgery removal of 3 lt ribs History of hysterectomy S/P insertion of iliac artery stent bilateral iliac stents placed Social History Social History Social History: She continues to work part work at a local [employer]. She has no children and lives with her mother. She stated she is down to half a pack a cigarettes a day. 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 Code status: Full code Smoking packs per day: 0.5 Smoking cigarettes per day: 10.0 Years smoked: 45 Smoking pack-years: 22.50 Smoking status: Current every day smoker Tobacco type: cigarettes Alcohol intake: former Substance use: unknown Substance use type: does not use Lack of Transportation: No Lack of Food: Never True Current Housing: I Have Housing Concerned About Future Housing: No Difficulty Paying Gas/Electric Bills: No Difficulty Paying for Meds: No Currently Unemployed: No Education: High School Diploma/GED Difficulty w/ Childcare or Family Care: No Gender identity (if verbalized by the patient): Female Spiritual care concerns: No Exam 2 Narrative: EXAMINATION OF ORGAN SYSTEMS/BODY AREAS: Constitutional: Vital signs per nursing GENERAL: Appears uncomfortable HEAD: Normal with no signs of head trauma. EYES: EOMI, conjunctiva normal ENT: Hearing grossly intact LUNGS: Nonlabored breathing. HEART: Regular rate and rhythm ABD: abdomen soft nontender with some minimal right flank tenderness EXT: Normal range of motion SKIN: No rashes or lesions. NEURO: Alert. No gross focal sensory or strength deficits. PSYCH: Normal affect Course Vital Signs Vital signs: Vital Signs Temperature 97.9 F 06/03/25 09:45 Pulse Rate 97 06/03/25 09:45 Respiratory Rate 16 06/03/25 09:45 Blood Pressure 171/94 H 06/03/25 09:45 Pulse Oximetry 95 06/03/25 09:45 Oxygen Delivery Room Air 06/03/25 09:45 Temperature 98.7 F 06/03/25 11:45 Pulse Rate 95 06/03/25 11:45 Respiratory Rate 16 06/03/25 11:45 Blood Pressure 160/94 H 06/03/25 11:45 Pulse Oximetry 97 06/03/25 11:45 Oxygen Delivery Room Air 06/03/25 09:45 MDM MDM Narrative Medical decision making narrative: [age] year-old patient presenting with flank pain and urinary symptoms consistent with UTI. Urinalysis is obtained and positive for signs of infection. Urine culture sent. I did review her last culture and noted that it was susceptible to ceftriaxone and Augmentin. Patient started on that with fluids and Zofran here. I did re-evaluate her and she feels much better afterwards, feels fine to go home. She is strongly advised to return for any increasing or worsening pain, fevers or vomiting. They expressed understanding of instructions and is discharged in stable condition. Differential Diagnosis Differential Diagnosis: Kidney stone, UTI, SBO, appendicitis etc. Lab Data 06/03/25 14:29 12 14:29 Labs: Lab Results 06/03/25 Range/Units 14:29 WBC 17.7 H (4.5-10.0) K/mm3 RBC 5.04 (4.2-5.4) M/mm3 Hgb 15.8 H (12.0-15.0) g/dL Hct 46.6 (37.0-47.0) % MCV 92.5 (80-100) fl MCH 31.3 (26-34) pg MCHC 33.9 (32-36) g/dl RDW 12.9 (11.5-14.5) % Plt Count 192 (150-375) k/mm3 MPV 10.7 H (7.4-10.4) fl Immature Gran % (Auto) 0.5 (0-0.5) % Neut % (Auto) 87.5 H (45.5-73.1) % Lymph % (Auto) 5.9 L (18.3-44.2) % Warren % (Auto) 5.6 (2.6-8.5) % Eos % (Auto) 0.1 (0-4.4) % Baso % (Auto) 0.4 (0.2-1.2) % Lymph # (Auto) 1.04 (0.9-3.2) K/mm3 Warren # (Auto) 1.0 H (0.1-0.6) K/mm3 Eos # (Auto) 0.0 (0-0.3) K/mm3 Baso # (Auto) 0.1 (0.0-0.1) K/mm3 Abs Immat Gran (auto) 0.08 H (0.00-0.031) K/mm3 Absolute Neuts (auto) 15.5 H (1.3-6.7) K/mm3 Absolute Nucleated RBC 0.000 (0.0-0.012) K/mm3 Nucleated RBC % 0.0 (0.0-0.2) % Sodium 137 (137-145) mmol/L Potassium 4.3 (3.4-5.0) mmol/L Chloride 104 (98-107) mmol/L Carbon Dioxide 23 (22-30) mmol/L Anion Gap 10 (4-12) mmol/L BUN 17 (7-17) mg/dL Creatinine 1.16 H (0.7-1.0) mg/dL Estim Creat Clear Calc 37 ml/min Estimated GFR 47 L (59 - ) Glucose 120 H (65-110) mg/dL Calcium 10.3 H (8.4-10.2) mg/dL Total Bilirubin 1.2 (0.2-1.3) mg/dL AST 22 (14-36) U/L ALT 16 (6-35) U/L Alkaline Phosphatase 113 (38-126) U/L Total Protein 8.8 H (6.3-8.2) g/dL Albumin 4.9 (3.5-5.1) g/dL Lipase 35 (23-300) U/L Urine Color Yellow (Yellow) Urine Appearance Turbid H (Clear) Urine pH 5.5 (5.0-9.0) Ur Specific Early 1.015 (1.001-1.035) Urine Protein 2+ H (Negative) mg/dL Urine Glucose (UA) Negative (Negative) mg/dL Urine Ketones 1+ H (Negative) mg/dL Ur Blood (Man) 2+ H (Negative) Urine Nitrate Positive H (Negative) Urine Bilirubin Negative (Negative) Urine Urobilinogen 1.0 (<2.0) mg/dL Add Ur Microanalysis Reviewed Leukocyte Esterase Rfl 3+ H (Negative) TROY/UL Urine RBC 11-20 H (0-2) /hpf Urine WBC >100 H (0-3) /hpf Ur Squamous Epith Cells Few (Few) /hpf Urine Bacteria 4+ H /hpf Urine Casts 11-20 Imaging Data Radiologist's impression: ITS Impressions Abdomen/Pelvis CT 06/03/25 14:05 IMPRESSION: 1. No urolithiasis or acute intra-abdominal/pelvic process. Discharge Plan Discharge Clinical Impression: Pyelonephritis Patient Disposition: Home Condition: Stable Instructions: Antibiotic Form, Urinary Tract Infection in Women (ED) Additional Instructions: Please see if it medications as prescribed, make sure to keep well hydrated. If you can not keep anything down, if you feel more sick or start having fevers or chills or anything else concerning, please come back to the emergency room. Patient Language: Turkmen Prescriptions: New amoxicillin-pot clavulanate 875-125 mg tablet 1 tablet PO Q12H Qty: 14 0RF ondansetron 4 mg tablet,disintegrating 4 mg PO Q8H PRN (Reason: nausea and vomiting) Qty: 14 0RF No Action atorvastatin 20 mg tablet 20 mg PO HS cefdinir 300 mg capsule 300 mg PO Q12H 7 Days Qty: 14 0RF losartan 100 mg tablet 100 mg PO DAILY pantoprazole 40 mg Tablet,Delayed Release (Dr/Ec) 40 mg PO Q12HR Qty: 60 0RF cefdinir 300 mg capsule 300 mg PO Q12H Qty: 8 0RF doxycycline hyclate 100 mg capsule 100 mg PO Q12H Qty: 8 0RF metoprolol succinate 25 mg tablet extended release 24 hr 25 mg PO DAILY Qty: 30 0RF Follow-up/Referrals: Kenji Angulo MD [Physician, Family Practice] - 3 Days UNKNOWN,DOCTOR [Primary Care Provider]
[2025-06-03 16:30] VITALS: PULSE 62; RESP 14; TEMP 36.1; O2SAT 100
--- NOTE | 2025-06-03 16:49 | PC.NURSE ---
pt was upset she was being discharged. this RN educated about the medications EDP prescribed. pt still upset with going home. EDP aware.
--- OUTSIDE RECORDS SUMMARY | 2025-06-03 19:43 | XMS_ITS | Clinical Summary ---
Author Organization [facility] lin Address [address] [place] [address] Care Team Providers Care Relief Master Name Role Phone No, Pcp INFORMATICA DEVELOPER Primary Care Provider Unavailabl e Social History Tobacco Use Types Packs/Day Years Used Date Smoking Tobacco: Never Assessed Comments Unknown Sex and Gender Information Value Date Recorded Sex Assigned at Not on file Legal Sex Nonbinary 11/23/2023 2:50 PM EDT Gender Identity Not on file Sexual Orientation Not on file Plan of Treatment Not on file Medical Devices Not on file Care Teams Relief Master Relationship Specialty Start Date End Date No, Pcp, INFORMATICA DEVELOPER N/A Do not use PCP - General Family Medicine 07/27/20
== END 2025-06-03 16:52 | disposition home or self-care (01) ==
PROVIDERS: Physician Assistant; Emergency Provider Emergency Medicine
DX: N12 Tubulo-interstitial nephritis, not specified as acute or chronic (principal); I10 Essential (primary) hypertension; E78.5 Hyperlipidemia, unspecified; K21.9 Gastro-esophageal reflux disease without esophagitis; J44.9 Chronic obstructive pulmonary disease, unspecified; M81.0 Age-related osteoporosis without current pathological fracture; Z86.19 Personal history of other infectious and parasitic diseases; F17.210 Nicotine dependence, cigarettes, uncomplicated
CPT/HCPCS: 36415; 74176; 80053; 81001; 83690; 85025; 87086; 87186; 96361; 96365; 96375; 99284; J0696; J2405; J7030; J7120